=== PATIENT | female | born 1955 | race Caucasian/White ===

== ENCOUNTER 2016-03-19 17:54 | Emergency (ER) | payer OTHER ==
[2016-03-19] MEDS ORDERED: DIPH,PERTUS(ACELL)TETVAC-LF 0.5 ML VIAL IM ONE (18:03)
[2016-03-19 18:05] VITALS: BP 168/83; PULSE 102; RESP 18; TEMP 97.9
--- NOTE | 2016-03-19 18:06 | ED ---
General Adult HPI - General Stated complaint: Fall, head lac Time Seen by Provider: 03/19/16 17:57 Source: RN notes reviewed - History of Present Illness Initial comments: 60 yo female presents to the emergency 5 chief complaint of head injury. The patient states that she was walking. Patient states she has chronic unsteady gait. Patient states she's had this for years she seen her doctor for her. Patient states exactly like her normal unsteady gait she went to stabilize herself she fell forward hit her head and fell backwards. Patient states that she did not have any loss of consciousness. Patient states she has a headache no nausea or vomiting. Patient states that she started to bleed so she thought that she should be evaluated. Patient does not recall her last tetanus. Patient denies any other injury from the incident. Patient denies any recent fever, chills, shortness of breath, chest pain, back pain, abdominal pain, nausea vomiting, numbness or tingling, dysuria or hematuria, constipation or diarrhea, visual changes, or any other current symptoms. - Related Data Home Medications Medication Instructions Recorded Confirmed Mirtazapine [Remeron] 30 mg PO HS 09/29/15 09/29/15 Ranitidine HCl [Zantac] 300 mg PO BID 09/29/15 09/29/15 Sertraline HCl [Zoloft] 200 mg PO W/SUPPER 09/29/15 09/29/15 buPROPion HCL [Wellbutrin XL] 300 mg PO DAILY 09/29/15 09/29/15 busPIRone HCL 15 mg PO BID 09/29/15 09/29/15 Previous Rx's Medication Instructions Recorded Nystatin 100,000 Unit/ml Susp 5 ml PO QID #200 ml 10/01/15 [Mycostatin Oral Susp] sitaGLIPtin [Januvia] 50 mg PO DAILY #30 tab 10/01/15 Allergies Allergy/AdvReac Type Severity Reaction Status Date / Time codeine Allergy Unknown Verified 03/19/16 18:06 erythromycin base Allergy Unknown Verified 03/19/16 18:06 [Erythromycin Base] Review of Systems ROS Statement: Those systems with pertinent positive or pertinent negative responses have been documented in the HPI. ROS Other: All systems not noted in ROS Statement are negative. Past Medical History Past Medical History: Diabetes Mellitus, GERD/Reflux, Osteoarthritis (OA) History of Any Multi-Drug Resistant Organisms: None Reported Additional Past Surgical History / Comment(s): eye surgery Past Anesthesia/Blood Transfusion Reactions: No Reported Reaction Past Psychological History: Depression Smoking Status: Former smoker Past Alcohol Use History: None Reported Past Drug Use History: None Reported General Exam General appearance: alert, in no apparent distress Head exam: Present: other (Patient does appear to have a forehead laceration) Eye exam: Present: normal appearance, PERRL, EOMI. Absent: scleral icterus, conjunctival injection, periorbital swelling Neck exam: Present: normal inspection. Absent: tenderness, meningismus, lymphadenopathy Respiratory exam: Present: normal lung sounds bilaterally. Absent: respiratory distress, wheezes, rales, rhonchi, stridor Cardiovascular Exam: Present: regular rate, normal rhythm, normal heart sounds. Absent: systolic murmur, diastolic murmur, rubs, gallop, clicks Extremities exam: Present: normal inspection, full ROM, normal capillary refill. Absent: tenderness, pedal edema, joint swelling, calf tenderness Back exam: Present: normal inspection Neurological exam: Present: alert, oriented X3, CN II-XII intact. Absent: motor sensory deficit Skin exam: Present: warm, dry, intact, normal color. Absent: rash Course Vital Signs 03/19/16 18:03 Temperature 97.9 F Pulse Rate 102 H Respiratory 18 Rate Blood Pressure 168/83 O2 Sat by Pulse 98 Oximetry Procedures - Procedures Initial comment: The skin was anesthetized with 1% lidocaine. The laceration was then cleansed with Betadine and irrigated with normal saline. The wound was inspected, and there was no evidence of injury to deep structures. No foreign body was noted in the wound. A total of 7 skin sutures were placed utilizing 5-0 nylon to a 4 cm facial laceration. Medical Decision Making - Medical Decision Making 60-year-old female presents to emergency room chief complaint of forehead laceration. This time patient on his computed tomography scan of the head and neck. CT brain was reviewed as well as a C-spine. We did discuss results with the patient. We discussed follow-up for this. We discussed return for illness. Discussed suture Follow-Up. Patient Stated That She Understood All Questions Were Answered. She'll Be Discharged Home. Disposition Clinical Impression: Fall, Forehead laceration, Concussion without loss of consciousness Disposition: HOME SELF-CARE Condition: Stable Instructions: Laceration (ED), Care For Your Stitches (ED), Concussion (ED) Additional Instructions: Please use medication as discussed. Please follow up with family doctor if symptoms have not improved over the next two days. Please return to the emergency room if your symptoms increase or worsen or for any other concerns. Please return to the emergency room in 5 days to have sutures removed. Please leave wound covered for the first 24-48 hours and then leave open to air after that time. Please use clean soap and water to clean the suture area to prevent scabbing over the top of your sutures. Please watch for any signs of infection which may include but not limited to increased pain, swelling, redness, fever or chills. Please return to the emergency room if any signs of infection do occur. Please return to the emergency room for any other concerns or complications. Referrals: Estevan Pierce MD [Primary Care Provider] - 1-2 days Time of Disposition: 18:52
--- NOTE | 2016-03-19 18:49 | CT ---
EXAMINATION TYPE: CT brain yeison diaz con DATE OF EXAM: 03/19/2016 6:27 PM COMPARISON: CT brain fifth of December 2014 HISTORY: Laceration to left side of forehead after fall injury today. CT DLP: 348.9 mGycm Automated exposure control for dose reduction was used. TECHNIQUE: CT scan of the head and cervical spine are performed without contrast. FINDINGS: There is no acute intracranial hemorrhage, mass effect, or midline shift identified. Per iventricular white matter demyelination is stable. There is age-related atrophy. The ventricles and s ulci are within normal limits in size. The globes are intact and the visualized sinuses are clear. Cervical spine is visualized in its entirety from C1 through upper thoracic levels and demonstrates s atisfactory alignment without evidence of acute fracture or dislocation. 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 Prevertebral soft tissue appears within normal limits. The C1-C2 a rticulation is unremarkable. Anterolisthesis grade 1 C2-3, retrolisthesis grade 1 C3-4 where there i s ankylosis. Loss of disc height also present at C4-5, C5-6, C6-7 and C7-T1, extensive sclerosis invo lving C4-5, C5-6. Multilevel foraminal encroachment. Posterior extension of endplate disc complex is causes some anterior mass effect on the thecal sac, mild to moderate central canal stenosis. Lung api jumana are remarkable for some minimal patchy density right upper lobe anteriorly image 83 which is inde terminate. IMPRESSION: 1. There is no acute fracture or dislocation evident in the cervical spine. 2. No acute intracranial hemorrhage, mass effect, or midline shift is seen. 3. Additional findings above.
== END 2016-03-19 19:00 | disposition home or self-care (01) ==
LOC: EC 17:54
DX: S06.0X0A Concussion without loss of consciousness, initial encounter (principal); S01.81XA Laceration without foreign body of other part of head, initial encounter; R26.81 Unsteadiness on feet; W19.XXXA Unspecified fall, initial encounter; Z23 Encounter for immunization; E11.9 Type 2 diabetes mellitus without complications; K21.9 Gastro-esophageal reflux disease without esophagitis; F32.9 Major depressive disorder, single episode, unspecified; Z87.891 Personal history of nicotine dependence; Z79.899 Other long term (current) drug therapy; Z79.84 Long term (current) use of oral hypoglycemic drugs; Z88.5 Allergy status to narcotic agent; Z88.1 Allergy status to other antibiotic agents
CPT/HCPCS: 12013; 70450; 72125; 90471; 90715; 99284

== ENCOUNTER → 2016-04-14 | Outpatient (CLI) | payer OTHER ==
--- NOTE | 2016-04-14 12:54 | XR ---
EXAMINATION TYPE: XR chest 2V DATE OF EXAM: 04/14/2016 12:45 PM COMPARISON: Prior chest x-ray December 11, 2014 HISTORY: Cough for one week. TECHNIQUE: Frontal and lateral views of the chest are obtained. FINDINGS: There is no focal air space opacity, pleural effusion, or pneumothorax seen. The cardiac silhouette size is within normal limits with atherosclerotic thoracic aorta. The osseous structures are intact. Cholecystectomy clips are now present. IMPRESSION: No suspicious acute infiltrate.
--- NOTE | 2016-04-14 12:56 | XR ---
EXAMINATION TYPE: XR knee limited bilateral DATE OF EXAM: 04/14/2016 12:45 PM CLINICAL HISTORY: Bilateral Knee pain and weakness TECHNIQUE: Three views of the bilateral knees are obtained. COMPARISON: Bilateral knee x-ray August 29, 2015 FINDINGS: Osseous structures are somewhat demineralized There is no acute fracture/dislocation eviden t in either there is mild to moderate tricompartment joint space loss redemonstrated. Mild spurring p atellofemoral compartment in left knee is again seen. Chondromalacia patella needs to be considered a s there is cortical irregularity along posterior margin of patellar bilaterally redemonstrated. Vascu lar calcification posterior soft tissue is noted bilaterally. IMPRESSION: There is some demineralization with mild to moderate degenerative changes in both knees redemonstrated. No significant change from prior.
== END | disposition home or self-care (01) ==
LOC: RADXRMAIN 12:18
PROVIDERS: ATTEND Internal Medicine
DX: M25.862 Other specified joint disorders, left knee (principal); M25.861 Other specified joint disorders, right knee; M25.562 Pain in left knee; M25.561 Pain in right knee; G44.83 Primary cough headache
CPT/HCPCS: 71020

== ENCOUNTER → 2016-05-23 | Outpatient (CLI) | payer OTHER ==
--- NOTE | 2016-05-24 00:02 | MR ---
EXAMINATION TYPE: MR knee RT wo con, MR knee LT wo con DATE OF EXAM: 05/23/2016 6:15 PM COMPARISON: Bilateral knee x-ray April 14, 2016. HISTORY: Kory knee pain, no prior surgery TECHNIQUE: Multiplanar, multisequence images of the bilateral knees is performed without IV contrast. FINDINGS: MEDIAL MENISCUS: Anterior horn is intact without tear. There is increased signal posterior horn of me dial meniscus, does not distinctly extend to articular surface, findings are consistent with intrasub stance tear on sagittal images 9 and 10. LATERAL MENISCUS: Anterior and posterior horns are intact without tear. CRUCIATE LIGAMENTS: The anterior and posterior cruciate ligaments are intact and unremarkable. COLLATERAL LIGAMENTS: The medial collateral ligament and lateral collateral ligament complex are inta ct and unremarkable. EXTENSOR MECHANISM: Visualized quadriceps and patellar tendons are intact. EFFUSION: There is a moderate size suprapatellar joint effusion. POPLITEAL CYST: No popliteal/ambriz cyst. TRICOMPARTMENT SPACES: There are moderate tricompartment degenerative changes with joint space loss a nd spurring. CARTILAGE: There is full-thickness cartilaginous defect involving posterior superior patellar pole me dial aspect seen best on axial image 17. BONE MARROW SIGNAL: Some heterogeneous increased T2 signal in the posterior patellar pole is noted at this level. OTHER: No additional significant abnormality is appreciated. IMPRESSION: 1. Intrasubstance tear posterior horn of medial meniscus. 2. Fairly moderate tricompartment degenerative changes with significant full-thickness chondromalacia patella noted. 3. Moderate suprapatellar joint effusion. LEFT KNEE: FINDINGS: MEDIAL MENISCUS: Anterior horn is intact without tear. Oblique increased signal posterior horn of med ial meniscus as seen on sagittal image 22, does not extend to articular surface. LATERAL MENISCUS: Anterior and posterior horns are intact without tear. CRUCIATE LIGAMENTS: The anterior and posterior cruciate ligaments are intact and unremarkable. COLLATERAL LIGAMENTS: The medial collateral ligament and lateral collateral ligament complex are inta ct and unremarkable. EXTENSOR MECHANISM: Visualized quadriceps and patellar tendons are intact. EFFUSION: There are small to moderate-sized suprapatellar joint effusion. POPLITEAL CYST: There is small popliteal/ambriz cyst seen best on sagittal image 20. TRICOMPARTMENT SPACES: There is mild to moderate tricompartment joint space loss and spurring. CARTILAGE: There is full-thickness cartilaginous loss over the posterior superior patellar pole near axial image 18. BONE MARROW SIGNAL: Heterogeneous increased T2 signal seen involving superior patellar pole. OTHER: No additional significant abnormality is appreciated. IMPRESSION: 1. Intrasubstance tear posterior horn of medial meniscus similar to opposite right knee. 2. Moderate tricompartment degenerative changes with significant full-thickness chondromalacia patell a is noted superiorly, latter is slightly less prominent versus opposite right knee. 3. Small to moderate size suprapatellar joint effusion. 4. Small popliteal/ambriz cyst.
== END | disposition home or self-care (01) ==
LOC: RADMRIMAIN 16:13
PROVIDERS: ATTEND Orthopaedic Surgery
DX: S83.231A Complex tear of medial meniscus, current injury, right knee, initial encounter (principal); S83.232A Complex tear of medial meniscus, current injury, left knee, initial encounter; X58.XXXA Exposure to other specified factors, initial encounter; M22.42 Chondromalacia patellae, left knee; M22.41 Chondromalacia patellae, right knee; M71.22 Synovial cyst of popliteal space [Baker], left knee; M17.0 Bilateral primary osteoarthritis of knee

== ENCOUNTER 2016-06-07 06:16 | Emergency (ER) | payer OTHER ==
[2016-06-07 06:53] VITALS: TEMP 97.6
[2016-06-07] MEDS ORDERED: PANTOPRAZOLE 40 MG/10 ML VIAL IVP STA (07:12)
[2016-06-07] MEDS ORDERED: DICYCLOMINE 10 MG/ML 2 ML AMP IM STA (07:12)
[2016-06-07] MEDS ORDERED: MAG HYDROX/AL HYDROX/SIMETH 30 ML CUP PO PRN (07:14)
[2016-06-07 07:52] LABS: Basophils % (A) 0 %; CH 27.8; CHCM 31.7; Eosinophils % (A) 1 %; HCT 37.9 % (34.0-46.0); HDW 2.92; HGB 12.3 gm/dL (11.4-16.0); Hypochromasia Slight; Luc # (Auto) 0.14; Luc % (Auto) 2; Lymphocytes % (A) 13 %; MCH 28.4 pg (25.0-35.0); MCHC 32.4 g/dL (31.0-37.0); MCV 87.9 fL (80.0-100.0); Mean Platelet Volume 6.8; Monocytes # (A) 0.3 k/uL (0-1.0); Monocytes % (A) 4 %; Neutrophils # (A) 6.2 k/uL (1.3-7.7); Neutrophils % (A) 81 %; RBC 4.31 m/uL (3.80-5.40); RDW 15.4 % (11.5-15.5); WBC 7.7 k/uL (3.8-10.6); WBC (Perox) 7.62
[2016-06-07 07:54] LABS: ALT 18 U/L (9-52); AST 17 U/L (14-36); Alkaline Phosphatase 90 U/L (38-126); Amylase 48 U/L (30-110); Anion Gap 13 mmol/L; Blood Urea Nitrogen 34 mg/dL (7-17); Calcium 10.4 mg/dL (8.4-10.2); Carbon Dioxide 21 mmol/L (22-30); Chloride 106 mmol/L (98-107); Glucose 284 mg/dL (74-99); Non-African American GFR(MDRD) >60 (>60 ml/min/1.73 sqM); Potassium 4.6 mmol/L (3.5-5.1); Sodium 140 mmol/L (137-145); Total Bilirubin 0.4 mg/dL (0.2-1.3)
--- NOTE | 2016-06-07 08:04 | XR ---
EXAMINATION TYPE: XR KUB DATE OF EXAM ORDERED: 06/07/2016 7:54 AM HISTORY: abdominal pain. COMPARISON: Previous study dated 09/29/2015. FINDINGS: There are mildly dilated loops of large and small bowel throughout the abdomen. There are scattered air-fluid levels. There is no evidence of free air. No unusual calcifications are seen. The re is evidence of a previous cholecystectomy. IMPRESSION: FINDINGS MOST CONSISTENT WITH EARLY ILEUS.
[2016-06-07] MEDS ORDERED: SODIUM CHLORIDE 0.9% 500 ML IV STA (08:22)
[2016-06-07 08:31] VITALS: RESP 16
[2016-06-07 08:32] LABS: Amorphous Sediment,Urine Few /hpf; Appearance,Urine Turbid (Clear); Bacteria,Urine Many /hpf; Bilirubin,Urine Negative (Negative); Glucose,Urine (UA) 4+ (Negative); Ketones,Urine Negative (Negative); Leukocyte Esterase,Urine Large (Negative); Nitrite,Urine Negative (Negative); Particle Count 92647; Protein,Urine Trace (Negative); RBC,Urine 66 /hpf (0-5); Specific Gravity,Urine 1.008 (1.001-1.035); Squamous Epithelial Cell,Urine 1 /hpf (0-4); UA Billing (MACRO vs. MICRO) MICRO; Urobilinogen,Urine <2.0 mg/dL (<2.0); WBC,Urine 30 /hpf (0-5)
[2016-06-07] MEDS ORDERED: SODIUM CHLORIDE 0.9% 1,000 ML IV STA (09:12)
--- NOTE | 2016-06-07 09:56 | ED ---
General Adult HPI - General Chief complaint: Abdominal Pain Stated complaint: abd pain, reflux Time Seen by Provider: 06/07/16 07:12 Source: patient Mode of arrival: ambulatory Limitations: no limitations - History of Present Illness Initial comments: Patient complains of acid reflux. She states that she has all the time. Sometimes it gets better and sometimes he gets worse. Today, she feels like it is worse. She has no complaint of chest or back pain. She has no nausea or vomiting. She has no weakness. She has no lightheadedness or dizziness. She has no neck pain or stiffness. She was beginning to experience worsening of her acid reflux last night. It has stayed about the same since then. She denies any palpitations. She has no swelling the legs. She has no headache. - Related Data Home Medications Medication Instructions Recorded Confirmed Mirtazapine [Remeron] 30 mg PO HS 09/29/15 03/19/16 Ranitidine HCl [Zantac] 300 mg PO BID 09/29/15 03/19/16 Sertraline HCl [Zoloft] 200 mg PO W/SUPPER 09/29/15 03/19/16 buPROPion HCL [Wellbutrin XL] 300 mg PO DAILY 09/29/15 03/19/16 busPIRone HCL 15 mg PO BID 09/29/15 03/19/16 Previous Rx's Medication Instructions Recorded Nystatin 100,000 Unit/ml Susp 5 ml PO QID #200 ml 10/01/15 [Mycostatin Oral Susp] sitaGLIPtin [Januvia] 50 mg PO DAILY #30 tab 10/01/15 Nitrofurantoin Monohyd/M-Cryst 100 mg PO Q12HR #14 cap 06/07/16 [Macrobid] Allergies Allergy/AdvReac Type Severity Reaction Status Date / Time codeine Allergy Unknown Verified 06/07/16 06:33 erythromycin base Allergy Unknown Verified 06/07/16 06:33 [Erythromycin Base] Review of Systems ROS Statement: Those systems with pertinent positive or pertinent negative responses have been documented in the HPI. ROS Other: All systems not noted in ROS Statement are negative. Past Medical History Past Medical History: Diabetes Mellitus, GERD/Reflux, Osteoarthritis (OA) History of Any Multi-Drug Resistant Organisms: None Reported Additional Past Surgical History / Comment(s): eye surgery Past Anesthesia/Blood Transfusion Reactions: No Reported Reaction Past Psychological History: Depression Smoking Status: Former smoker Past Alcohol Use History: None Reported, Rare Past Drug Use History: None Reported General Exam Limitations: no limitations General appearance: alert, in no apparent distress Head exam: Present: atraumatic, normocephalic, normal inspection Eye exam: Present: normal appearance, PERRL, EOMI. Absent: scleral icterus, conjunctival injection, periorbital swelling ENT exam: Present: normal exam, mucous membranes moist Neck exam: Present: normal inspection. Absent: tenderness, meningismus, lymphadenopathy Respiratory exam: Present: normal lung sounds bilaterally. Absent: respiratory distress, wheezes, rales, rhonchi, stridor Cardiovascular Exam: Present: regular rate, normal rhythm, normal heart sounds. Absent: systolic murmur, diastolic murmur, rubs, gallop, clicks GI/Abdominal exam: Present: soft, normal bowel sounds. Absent: distended, tenderness, guarding, rebound, rigid Extremities exam: Present: normal inspection, full ROM, normal capillary refill. Absent: tenderness, pedal edema, joint swelling, calf tenderness Back exam: Present: normal inspection Neurological exam: Present: alert, oriented X3, CN II-XII intact Psychiatric exam: Present: normal affect, normal mood Skin exam: Present: warm, dry, intact, normal color. Absent: rash Course Vital Signs 06/07/16 06/07/16 06/07/16 06:27 07:51 08:30 Temperature 97.6 F Pulse Rate 110 H 110 H 120 H Respiratory 16 18 16 Rate Blood Pressure 132/78 148/80 137/67 O2 Sat by Pulse 97 98 99 Oximetry EKG Findings - EKG Comments: EKG Findings:: Twelve-lead EKG is obtained, interpreted by me showing ventricular rate 117 bpm, normal SD interval and Johnny complexes, no ST elevation or depression, interpreted by me as sinus tachycardia. Medical Decision Making - Medical Decision Making Patient complains of acid reflux. She is given a GI cocktail. Her laboratory studies show a slightly elevated B-1, consistent with dehydration. However, her creatinine is acceptable. Her troponin is negative. Her imaging does not reveal any evidence of an acute emergency condition. Patient is tolerating oral intake at this time. I'm reevaluation her vital signs are sniffily improved after IV fluids. I do give her 1 dose of IV ceftriaxone for a kidney infection. I'm reevaluation she is filling much better and her symptoms have generally resolved. I do feel that given the improvement in her vital signs she is not symptomatically this time that she is stable for discharge and outpatient follow-up. She should follow-up with her doctor within 2 days, return to the ER immediately if her symptoms return, worsen, or if she develops any other problems or complaints. - Lab Data Result diagrams: 06/07/16 07:25 06/07/16 07:25 Lab Results 06/07/16 06/07/16 06/07/16 Range/Units 07:25 07:25 07:25 WBC 7.7 (3.8-10.6) k/uL RBC 4.31 (3.80-5.40) m/uL Hgb 12.3 (11.4-16.0) gm/dL Hct 37.9 (34.0-46.0) % MCV 87.9 (80.0-100.0) fL MCH 28.4 (25.0-35.0) pg MCHC 32.4 (31.0-37.0) g/dL RDW 15.4 (11.5-15.5) % Plt Count 192 (150-450) k/uL Neutrophils % 81 % Lymphocytes % 13 % Monocytes % 4 % Eosinophils % 1 % Basophils % 0 % Neutrophils # 6.2 (1.3-7.7) k/uL Lymphocytes # 1.0 (1.0-4.8) k/uL Monocytes # 0.3 (0-1.0) k/uL Eosinophils # 0.0 (0-0.7) k/uL Basophils # 0.0 (0-0.2) k/uL Hypochromasia Slight Sodium 140 (137-145) mmol/L Potassium 4.6 (3.5-5.1) mmol/L Chloride 106 (98-107) mmol/L Carbon Dioxide 21 L (22-30) mmol/L Anion Gap 13 mmol/L BUN 34 H (7-17) mg/dL Creatinine 0.90 (0.52-1.04) mg/dL Est GFR (MDRD) Af Amer >60 (>60 ml/min/1.73 sqM) Est GFR (MDRD) Non-Af >60 (>60 ml/min/1.73 sqM) Glucose 284 H (74-99) mg/dL Calcium 10.4 H (8.4-10.2) mg/dL Total Bilirubin 0.4 (0.2-1.3) mg/dL AST 17 (14-36) U/L ALT 18 (9-52) U/L Alkaline Phosphatase 90 (38-126) U/L Troponin I <0.012 (0.000-0.034) ng/mL Total Protein 7.0 (6.3-8.2) g/dL Albumin 3.8 (3.5-5.0) g/dL Amylase 48 (30-110) U/L Lipase 97 (23-300) U/L Urine Color Urine Appearance (Clear) Urine pH (5.0-8.0) Ur Specific [place] (1.001-1.035) Urine Protein (Negative) Urine Glucose (UA) (Negative) Urine Ketones (Negative) Urine Blood (Negative) Urine Nitrite (Negative) Urine Bilirubin (Negative) Urine Urobilinogen (<2.0) mg/dL Ur Leukocyte Esterase (Negative) Urine RBC (0-5) /hpf Urine WBC (0-5) /hpf Ur Squamous Epith Cells (0-4) /hpf Amorphous Sediment (None) /hpf Urine Bacteria (None) /hpf 06/07/16 Range/Units 07:35 WBC (3.8-10.6) k/uL RBC (3.80-5.40) m/uL Hgb (11.4-16.0) gm/dL Hct (34.0-46.0) % MCV (80.0-100.0) fL MCH (25.0-35.0) pg MCHC (31.0-37.0) g/dL RDW (11.5-15.5) % Plt Count (150-450) k/uL Neutrophils % % Lymphocytes % % Monocytes % % Eosinophils % % Basophils % % Neutrophils # (1.3-7.7) k/uL Lymphocytes # (1.0-4.8) k/uL Monocytes # (0-1.0) k/uL Eosinophils # (0-0.7) k/uL Basophils # (0-0.2) k/uL Hypochromasia Sodium (137-145) mmol/L Potassium (3.5-5.1) mmol/L Chloride (98-107) mmol/L Carbon Dioxide (22-30) mmol/L Anion Gap mmol/L BUN (7-17) mg/dL Creatinine (0.52-1.04) mg/dL Est GFR (MDRD) Af Amer (>60 ml/min/1.73 sqM) Est GFR (MDRD) Non-Af (>60 ml/min/1.73 sqM) Glucose (74-99) mg/dL Calcium (8.4-10.2) mg/dL Total Bilirubin (0.2-1.3) mg/dL AST (14-36) U/L ALT (9-52) U/L Alkaline Phosphatase (38-126) U/L Troponin I (0.000-0.034) ng/mL Total Protein (6.3-8.2) g/dL Albumin (3.5-5.0) g/dL Amylase (30-110) U/L Lipase (23-300) U/L Urine Color Yellow Urine Appearance Turbid H (Clear) Urine pH 7.0 (5.0-8.0) Ur Specific [place] 1.008 (1.001-1.035) Urine Protein Trace H (Negative) Urine Glucose (UA) 4+ H (Negative) Urine Ketones Negative (Negative) Urine Blood Small H (Negative) Urine Nitrite Negative (Negative) Urine Bilirubin Negative (Negative) Urine Urobilinogen <2.0 (<2.0) mg/dL Ur Leukocyte Esterase Large H (Negative) Urine RBC 66 H (0-5) /hpf Urine WBC 30 H (0-5) /hpf Ur Squamous Epith Cells 1 (0-4) /hpf Amorphous Sediment Few H (None) /hpf Urine Bacteria Many H (None) /hpf Disposition Clinical Impression: Kidney infection Disposition: HOME SELF-CARE Condition: Good Instructions: Kidney Infection (ED) Prescriptions: Nitrofurantoin Monohyd/M-Cryst [Macrobid] 100 mg PO Q12HR #14 cap Time of Disposition: 09:56
[2016-06-07 10:16] VITALS: BP 153/78; PULSE 104
== END 2016-06-07 10:14 | disposition home or self-care (01) ==
LOC: EC 06:16
DX: N15.9 Renal tubulo-interstitial disease, unspecified (principal); F32.9 Major depressive disorder, single episode, unspecified; K21.9 Gastro-esophageal reflux disease without esophagitis; E11.9 Type 2 diabetes mellitus without complications; Z88.5 Allergy status to narcotic agent; Z88.1 Allergy status to other antibiotic agents; Z79.84 Long term (current) use of oral hypoglycemic drugs; Z87.891 Personal history of nicotine dependence; Z79.899 Other long term (current) drug therapy
CPT/HCPCS: 99284; 96365; 96375; 96361; 96372; 36415; 93005; 80053; 82150; 83690; 84484; 85025; 81001; 74000; J0500; J0696; C9113

== ENCOUNTER 2016-10-11 17:45 | Emergency (ER) | payer OTHER ==
[2016-10-11 17:50] VITALS: RESP 18
--- NOTE | 2016-10-11 18:57 | ED ---
General Adult HPI - General Chief complaint: Extremity Injury, Lower Stated complaint: Fall Time Seen by Provider: 10/11/16 17:53 Source: patient, RN notes reviewed, old records reviewed Mode of arrival: EMS Limitations: physical limitation - History of Present Illness Initial comments: Chief complaint history of present illness is a 60-year-old female who reports she stumbled several times but her left knee gives out and she landed on her knees. Complains of discomfort and bruising to her knees. Denies any other injuries to the rest of her body. - Related Data Home Medications Medication Instructions Recorded Confirmed DULoxetine HCL [Cymbalta] 60 mg PO DAILY 10/11/16 10/11/16 Ergocalciferol [Vitamin D2] 50,000 unit PO Q7D 10/11/16 10/11/16 Fenofibrate Nanocrystallized 145 mg PO DAILY 10/11/16 10/11/16 [Fenofibrate] Magnesium Oxide 400 mg PO DAILY 10/11/16 10/11/16 OLANZapine [ZyPREXA] 10 mg PO DIRECTED 10/11/16 10/11/16 Ranitidine HCl [Zantac] 150 mg PO DAILY 10/11/16 10/11/16 busPIRone HCL [Buspar] 30 mg PO BID 10/11/16 10/11/16 glipiZIDE [Glucotrol] 10 mg PO BID 10/11/16 10/11/16 metFORMIN HCL [Glucophage] 500 mg PO BID 10/11/16 10/11/16 Previous Rx's Medication Instructions Recorded Nystatin 100,000 Unit/gm Powd 1 applic TOPICAL TID #60 gm 10/11/16 [Mycostatin Powder] Allergies Allergy/AdvReac Type Severity Reaction Status Date / Time codeine Allergy Unknown Verified 10/11/16 18:40 erythromycin base Allergy Unknown Verified 10/11/16 18:40 [Erythromycin Base] Review of Systems ROS Statement: Those systems with pertinent positive or pertinent negative responses have been documented in the HPI. Review of systems no headache no chest pain or shortness of breath no GI/ problems or complaints. All systems are reviewed. Only complains of discomfort to her knees where she fell on her knees twice. Past medical problems significant for non-insulin diabetes mellitus, GERD and osteoarthritis. She had a gallbladder removal and eye surgery. Family history no cancers. She has ALLERGIES to codeine and erythromycin base. She quit smoking over 40 years ago denies alcohol use. ROS Other: All systems not noted in ROS Statement are negative. Past Medical History Past Medical History: Diabetes Mellitus, GERD/Reflux, Osteoarthritis (OA) History of Any Multi-Drug Resistant Organisms: None Reported Additional Past Surgical History / Comment(s): eye surgery Past Anesthesia/Blood Transfusion Reactions: No Reported Reaction Past Psychological History: Depression Smoking Status: Former smoker Past Alcohol Use History: None Reported, Rare Past Drug Use History: None Reported General Exam - General Exam Comments Initial Comments: General: The patient is awake and alert, age left knee goes out on her sometimes making her fall to her knees. She is waiting to get a cane through [facility]. Vital signs are temperature 98.6 pulse 96 respiratory rate 18 pulse ox 98% room air blood pressure 140/69 Eye: Pupils are equal, round and reactive to light, extra-ocular movements are intact ; there is normal conjunctiva bilaterally. No signs of icterus. Ears, nose, mouth and throat: There are moist mucous membranes and no oral lesions. Neck: The neck is supple, there is no tenderness . Cardiovascular: There is a regular rate and rhythm. No murmur, rub or gallop is appreciated. Respiratory: Lungs are clear to auscultation, respirations are non-labored, breath sounds are equal. No wheezes, stridor, rales, or rhonchi. Gastrointestinal: Abdomen, nontender, no organomegaly. Active bowel sounds. She does have a significant intertrigo on the right half of her pannus. This be treated with Mycostatin. Back: No back pain.. Musculoskeletal: Bruising to her knees. On examination the left leg is slightly shorter than the right but is no pain with varus valgus or drawer testing of the knees. No pain with manipulation of the hips ankles or feet. Neurovascular status appears to be intact. Neurological: No focal or lateralizing findings on examination. Intertrigo noted on the right half of the pannus. Limitations: physical limitation Course Vital Signs 10/11/16 17:47 Temperature 97.3 F L Pulse Rate 101 H Respiratory 18 Rate Blood Pressure 143/66 O2 Sat by Pulse 97 Oximetry Medical Decision Making - Medical Decision Making Vital decision making; X-rays of the pelvis done and reviewed by me. No evidence of any acute irregularity. Awaiting radiologist's final impression. X-ray of the pelvis was reviewed by radiologist his final impression is no acute fracture dislocation in the pelvis. As read by Dr. rodriguez Tray both left and right knee were done and reviewed by me. No evidence of any acute bony irregularity. Joint spaces appear to be well maintained. No evidence of any effusion. No fractures appreciated. Mild arthritic changes noted. Awaiting radiologist's final impression. Tray of both knees were done and reviewed by radiologist his final impression is there is no acute fracture dislocation in either knee. As read by Dr. rodriguez he does also mention the subchondral cystic changes to the posterior patellar level bilaterally is consistent with significant chondromalacia patella on recent MRI studies. The patient reports that her left knee gives out which makes her have difficulty walking. She is waiting for a cane to be initiated to her. She declines a prescription for a walker. Patient has intertrigo to her right half of her pannus. She'll be placed on Mycostatin advised to follow-up with family physician. Disposition Clinical Impression: Contusion of knee, left, Contusion of knee, right, Candidiasis, intertrigo Disposition: HOME SELF-CARE Condition: Fair Instructions: Knee Pain (ED), Skin Yeast Infection (ED) Additional Instructions: Use a walking cane as needed. Use a cane for stability. Use Mycostatin as directed. Follow up with your family physician Prescriptions: Nystatin 100,000 Unit/gm Powd [Mycostatin Powder] 1 applic TOPICAL TID #60 gm Referrals: Ashlyn Arriaza MD [Primary Care Provider] - 1-2 days Time of Disposition: 19:30
--- NOTE | 2016-10-11 19:14 | XR ---
EXAMINATION TYPE: XR pelvis AP view DATE OF EXAM: 10/11/2016 CLINICAL HISTORY: Pain after fall injury TECHNIQUE: A single AP view of the pelvis is obtained. COMPARISON: None. FINDINGS: There is no acute fracture/dislocation evident in the pelvis. The sacroiliac joints appea r symmetric and unremarkable. There is mild to moderate axial joint space loss in both hips. Surgical clips overlie the left lower quadrant near midline. There is transitional-type vertebra at lumbosacr al junction sacralized on the left. IMPRESSION: There is no acute fracture or dislocation in the pelvis.
--- NOTE | 2016-10-11 19:16 | XR ---
EXAMINATION TYPE: XR knee 4V bilateral DATE OF EXAM: 10/11/2016 CLINICAL HISTORY: Pain after fall injury. TECHNIQUE: Three views of the bilateral knees are obtained. In addition fourth sunrise view was perf ormed. COMPARISON: Bilateral knee x-ray April 14, 2016. FINDINGS: There is no acute fracture/dislocation evident in either knee. There is spurring and joint space loss patellofemoral compartment bilateral knees redemonstrated. Patellar articulation is withi n normal limits on sunrise view bilaterally. Subchondral cystic change posterior patellar level bilat erally is consistent with significant chondromalacia patella on recent MRI studies. The overlying sof t tissue appears unremarkable. IMPRESSION: There is no acute fracture or dislocation in either knee.
[2016-10-11 19:43] VITALS: BP 153/64; PULSE 69; TEMP 98.2
== END 2016-10-11 19:42 | disposition home or self-care (01) ==
LOC: EC 17:45
DX: S80.02XA Contusion of left knee, initial encounter (principal); S80.01XA Contusion of right knee, initial encounter; B37.2 Candidiasis of skin and nail; E11.9 Type 2 diabetes mellitus without complications; K21.9 Gastro-esophageal reflux disease without esophagitis; M19.90 Unspecified osteoarthritis, unspecified site; F32.9 Major depressive disorder, single episode, unspecified; Z88.1 Allergy status to other antibiotic agents; Z88.5 Allergy status to narcotic agent; Z79.84 Long term (current) use of oral hypoglycemic drugs; Z79.899 Other long term (current) drug therapy; Z87.891 Personal history of nicotine dependence; W19.XXXA Unspecified fall, initial encounter
CPT/HCPCS: 72170; 99284

== ENCOUNTER 2016-10-26 12:18 | Emergency (ER) | payer OTHER ==
[2016-10-26 12:24] VITALS: RESP 18
[2016-10-26] MEDS ORDERED: SODIUM CHLORIDE 0.9% 500 ML IV STA (12:48)
--- NOTE | 2016-10-26 12:51 | ED ---
General Adult HPI - General Chief complaint: Weakness Stated complaint: Weakness Time Seen by Provider: 10/26/16 12:20 Source: patient, EMS, RN notes reviewed Mode of arrival: EMS Limitations: no limitations - History of Present Illness Initial comments: This is a 60-year-old female presents emergency department stating that she came in because she feels weak all over. Patient states earlier today she felt weak and slowly fell to the ground she did not injure anything and has no pain. Patient denies any other symptoms. Patient states she has no headache she has no numbness or focal weakness. Patient has no headache patient has no lightheadedness or dizziness. Patient denies any chest pain or palpitations. Patient denies any shortness of breath or difficulty breathing. Patient denies any fever or cough. Patient denies abdominal pain patient denies nausea vomiting diarrhea. Patient denies any dysuria hematuria urinary frequency. Patient's only complaint is she just feels weak all over - Related Data Home Medications Medication Instructions Recorded Confirmed DULoxetine HCL [Cymbalta] 60 mg PO DAILY 10/11/16 10/26/16 Ergocalciferol [Vitamin D2] 50,000 unit PO MO 10/11/16 10/26/16 Fenofibrate Nanocrystallized 145 mg PO DAILY 10/11/16 10/26/16 [Fenofibrate] Magnesium Oxide 400 mg PO DAILY 10/11/16 10/26/16 OLANZapine [ZyPREXA] 10 mg PO HS 10/11/16 10/26/16 Ranitidine HCl [Zantac] 150 mg PO DAILY 10/11/16 10/26/16 busPIRone HCL [Buspar] 30 mg PO DAILY 10/11/16 10/26/16 glipiZIDE [Glucotrol] 10 mg PO BID 10/11/16 10/26/16 metFORMIN HCL [Glucophage] 500 mg PO BID 10/11/16 10/26/16 Ammonium Lactate Cream [Lac-Hydrin 1 applic TOPICAL BID 10/26/16 10/26/16 12% Cream] Triamcinolone 0.5% Cream [Kenalog 1 applic TOPICAL BID 10/26/16 10/26/16 0.5% Cream] Previous Rx's Medication Instructions Recorded Levofloxacin [Levaquin] 750 mg PO DAILY #10 tab 10/26/16 Allergies Allergy/AdvReac Type Severity Reaction Status Date / Time codeine Allergy Unknown Verified 10/26/16 12:56 erythromycin base Allergy Unknown Verified 10/26/16 12:56 [Erythromycin Base] Review of Systems ROS Statement: Those systems with pertinent positive or pertinent negative responses have been documented in the HPI. ROS Other: All systems not noted in ROS Statement are negative. Past Medical History Past Medical History: Diabetes Mellitus, GERD/Reflux, Osteoarthritis (OA) History of Any Multi-Drug Resistant Organisms: None Reported Additional Past Surgical History / Comment(s): eye surgery Past Anesthesia/Blood Transfusion Reactions: No Reported Reaction Past Psychological History: Depression Smoking Status: Former smoker Past Alcohol Use History: None Reported, Rare Past Drug Use History: None Reported General Exam - General Exam Comments Initial Comments: GENERAL: Patient is well-developed and well-nourished. Patient is nontoxic and well- hydrated and is in no acute distress. ENT: Neck is soft and supple. No significant lymphadenopathy is noted. Oropharynx is clear. Moist mucous membranes. Neck has full range of motion without eliciting any pain. EYES: The sclera were anicteric and conjunctiva were pink and moist. Extraocular movements were intact and pupils were equal round and reactive to light. Eyelids were unremarkable. PULMONARY: Unlabored respirations. Good breath sounds bilaterally. No audible rales rhonchi or wheezing was noted. CARDIOVASCULAR: There is a regular rate and rhythm without any murmurs gallops or rubs. ABDOMEN: Soft and nontender with normal bowel sounds. No palpable organomegaly was noted. There is no palpable pulsatile mass. SKIN: Skin is clear with no lesions or rashes and otherwise unremarkable. NEUROLOGIC: Patient is alert and oriented x3. Cranial nerves II through XII are grossly intact. Motor and sensory are also intact. Normal speech, volume and content. Symmetrical smile. MUSCULOSKELETAL: Normal extremities with adequate strength and full range of motion. No lower extremity swelling or edema. No calf tenderness. LYMPHATICS: No significant lymphadenopathy is noted PSYCHIATRIC: Normal psychiatric evaluation. Normal interpersonal interactions appears functionally intact in deals appropriately with others. No signs of depression. No signs of anxiety. Limitations: no limitations Course Vital Signs 10/26/16 12:21 Temperature 97.9 F Pulse Rate 113 H Respiratory 18 Rate Blood Pressure 124/75 O2 Sat by Pulse 96 Oximetry Medical Decision Making - Medical Decision Making EKG shows sinus tachycardia at 113 bpm LA interval is 154 QRS is 60 QT interval 324 QTC is 444. Patient's EKG shows no ST segment elevation or depression or T wave abnormalities are noted. Patient has urinary tract infection I gave the patient 2 g of Rocephin - Lab Data Result diagrams: 10/26/16 12:24 10/26/16 12:24 Lab Results 10/26/16 10/26/16 10/26/16 Range/Units 12:24 12:24 12:24 WBC 8.7 (3.8-10.6) k/uL RBC 4.15 (3.80-5.40) m/uL Hgb 12.2 (11.4-16.0) gm/dL Hct 37.1 (34.0-46.0) % MCV 89.4 (80.0-100.0) fL MCH 29.4 (25.0-35.0) pg MCHC 32.9 (31.0-37.0) g/dL RDW 14.9 (11.5-15.5) % Plt Count 167 (150-450) k/uL Neutrophils % 83 % Lymphocytes % 12 % Monocytes % 4 % Eosinophils % 1 % Basophils % 0 % Neutrophils # 7.2 (1.3-7.7) k/uL Lymphocytes # 1.0 (1.0-4.8) k/uL Monocytes # 0.3 (0-1.0) k/uL Eosinophils # 0.0 (0-0.7) k/uL Basophils # 0.0 (0-0.2) k/uL PT (9.0-12.0) sec INR (<1.2) APTT (22.0-30.0) sec Sodium 137 (137-145) mmol/L Potassium 4.5 (3.5-5.1) mmol/L Chloride 108 H (98-107) mmol/L Carbon Dioxide 18 L (22-30) mmol/L Anion Gap 11 mmol/L BUN 27 H (7-17) mg/dL Creatinine 1.02 (0.52-1.04) mg/dL Est GFR (MDRD) Af Amer >60 (>60 ml/min/1.73 sqM) Est GFR (MDRD) Non-Af 55 (>60 ml/min/1.73 sqM) Glucose 252 H (74-99) mg/dL Calcium 10.1 (8.4-10.2) mg/dL Magnesium 1.8 (1.6-2.3) mg/dL Total Bilirubin 0.3 (0.2-1.3) mg/dL AST 15 (14-36) U/L ALT 27 (9-52) U/L Alkaline Phosphatase 95 (38-126) U/L Total Creatine Kinase 48 (30-135) U/L CK-MB (CK-2) 1.3 (0.0-2.4) ng/mL CK-MB (CK-2) Rel Index 2.7 Troponin I <0.012 (0.000-0.034) ng/mL Total Protein 6.7 (6.3-8.2) g/dL Albumin 3.7 (3.5-5.0) g/dL Urine Color Urine Appearance (Clear) Urine pH (5.0-8.0) Ur Specific [place] (1.001-1.035) Urine Protein (Negative) Urine Glucose (UA) (Negative) Urine Ketones (Negative) Urine Blood (Negative) Urine Nitrite (Negative) Urine Bilirubin (Negative) Urine Urobilinogen (<2.0) mg/dL Ur Leukocyte Esterase (Negative) Urine RBC (0-5) /hpf Urine WBC (0-5) /hpf Urine WBC Clumps (None) /hpf 10/26/16 10/26/16 Range/Units 12:24 14:05 WBC (3.8-10.6) k/uL RBC (3.80-5.40) m/uL Hgb (11.4-16.0) gm/dL Hct (34.0-46.0) % MCV (80.0-100.0) fL MCH (25.0-35.0) pg MCHC (31.0-37.0) g/dL RDW (11.5-15.5) % Plt Count (150-450) k/uL Neutrophils % % Lymphocytes % % Monocytes % % Eosinophils % % Basophils % % Neutrophils # (1.3-7.7) k/uL Lymphocytes # (1.0-4.8) k/uL Monocytes # (0-1.0) k/uL Eosinophils # (0-0.7) k/uL Basophils # (0-0.2) k/uL PT 10.3 (9.0-12.0) sec INR 1.0 (<1.2) APTT 20.8 L (22.0-30.0) sec Sodium (137-145) mmol/L Potassium (3.5-5.1) mmol/L Chloride (98-107) mmol/L Carbon Dioxide (22-30) mmol/L Anion Gap mmol/L BUN (7-17) mg/dL Creatinine (0.52-1.04) mg/dL Est GFR (MDRD) Af Amer (>60 ml/min/1.73 sqM) Est GFR (MDRD) Non-Af (>60 ml/min/1.73 sqM) Glucose (74-99) mg/dL Calcium (8.4-10.2) mg/dL Magnesium (1.6-2.3) mg/dL Total Bilirubin (0.2-1.3) mg/dL AST (14-36) U/L ALT (9-52) U/L Alkaline Phosphatase (38-126) U/L Total Creatine Kinase (30-135) U/L CK-MB (CK-2) (0.0-2.4) ng/mL CK-MB (CK-2) Rel Index Troponin I (0.000-0.034) ng/mL Total Protein (6.3-8.2) g/dL Albumin (3.5-5.0) g/dL Urine Color Light Yellow Urine Appearance Cloudy H (Clear) Urine pH 5.5 (5.0-8.0) Ur Specific [place] 1.004 (1.001-1.035) Urine Protein Trace H (Negative) Urine Glucose (UA) 3+ H (Negative) Urine Ketones Negative (Negative) Urine Blood Trace H (Negative) Urine Nitrite Negative (Negative) Urine Bilirubin Negative (Negative) Urine Urobilinogen <2.0 (<2.0) mg/dL Ur Leukocyte Esterase Large H (Negative) Urine RBC 4 (0-5) /hpf Urine WBC >182 H (0-5) /hpf Urine WBC Clumps Many H (None) /hpf Disposition Clinical Impression: Urinary tract infection Disposition: HOME SELF-CARE Condition: Good Instructions: Urinary Tract Infection in Women (ED) Prescriptions: Levofloxacin [Levaquin] 750 mg PO DAILY #10 tab Referrals: Ashlyn Arriaza MD [Primary Care Provider] - 1-2 days Time of Disposition: 14:47
[2016-10-26 13:08] LABS: Basophils % (A) 0 %; CHCM 32.6; Eosinophils % (A) 1 %; HCT 37.1 % (34.0-46.0); HDW 2.53; HGB 12.2 gm/dL (11.4-16.0); Luc # (Auto) 0.09; Luc % (Auto) 1; Lymphocytes % (A) 12 %; MCH 29.4 pg (25.0-35.0); MCHC 32.9 g/dL (31.0-37.0); MCV 89.4 fL (80.0-100.0); Mean Platelet Volume 7.8; Monocytes # (A) 0.3 k/uL (0-1.0); Monocytes % (A) 4 %; Neutrophils # (A) 7.2 k/uL (1.3-7.7); Neutrophils % (A) 83 %; RBC 4.15 m/uL (3.80-5.40); RDW 14.9 % (11.5-15.5); WBC 8.7 k/uL (3.8-10.6); WBC (Perox) 8.93
[2016-10-26 13:15] LABS: ALT 27 U/L (9-52); AST 15 U/L (14-36); Alkaline Phosphatase 95 U/L (38-126); Anion Gap 11 mmol/L; Blood Urea Nitrogen 27 mg/dL (7-17); Calcium 10.1 mg/dL (8.4-10.2); Carbon Dioxide 18 mmol/L (22-30); Chloride 108 mmol/L (98-107); Glucose 252 mg/dL (74-99); Magnesium 1.8 mg/dL (1.6-2.3); Non-African American GFR(MDRD) 55 (>60 ml/min/1.73 sqM); Potassium 4.5 mmol/L (3.5-5.1); Sodium 137 mmol/L (137-145); Total Bilirubin 0.3 mg/dL (0.2-1.3); Total Protein 6.7 g/dL (6.3-8.2)
[2016-10-26 13:16] LABS: Prothrombin Time 10.3 sec (9.0-12.0)
[2016-10-26 13:25] LABS: Creatine Kinase 48 U/L (30-135)
[2016-10-26 13:28] LABS: Partial Thromboplastin Time 20.8 sec (22.0-30.0)
--- NOTE | 2016-10-26 13:28 | XR ---
EXAMINATION TYPE: XR chest 2V DATE OF EXAM: 10/26/2016 COMPARISON: Prior chest x-ray 04/14/2016 HISTORY: Weakness and dizziness TECHNIQUE: Frontal and lateral views of the chest are obtained. FINDINGS: There is no focal air space opacity, pleural effusion, or pneumothorax seen. The cardiac silhouette size is within normal limits. The osseous structures are intact. IMPRESSION: No acute cardiopulmonary process.
[2016-10-26 13:39] LABS: Creatine Kinase MB 1.3 ng/mL (0.0-2.4); Troponin I <0.012 ng/mL (0.000-0.034)
[2016-10-26 14:16] LABS: Appearance,Urine Cloudy (Clear); Bilirubin,Urine Negative (Negative); Glucose,Urine (UA) 3+ (Negative); Ketones,Urine Negative (Negative); Leukocyte Esterase,Urine Large (Negative); Nitrite,Urine Negative (Negative); PH, Urine 5.5 (5.0-8.0); Particle Count 54798; Protein,Urine Trace (Negative); RBC,Urine 4 /hpf (0-5); Specific Gravity,Urine 1.004 (1.001-1.035); UA Billing (MACRO vs. MICRO) MICRO; Urobilinogen,Urine <2.0 mg/dL (<2.0); WBC,Urine >182 /hpf (0-5)
[2016-10-26] MEDS ORDERED: cefTRIAXone 2,000 MG in SODIUM CHLORIDE 0.9% 100 ML IVPB STA (14:20)
[2016-10-26] MEDS ORDERED: SODIUM CHLORIDE 0.9% 500 ML IV ONE (14:22)
[2016-10-26 16:30] VITALS: BP 145/69; PULSE 108; TEMP 97.5
== END 2016-10-26 16:30 | disposition home or self-care (01) ==
LOC: EC 12:18
DX: N39.0 Urinary tract infection, site not specified (principal); E11.9 Type 2 diabetes mellitus without complications; K21.9 Gastro-esophageal reflux disease without esophagitis; F32.9 Major depressive disorder, single episode, unspecified; Z87.891 Personal history of nicotine dependence; Z79.84 Long term (current) use of oral hypoglycemic drugs; Z79.899 Other long term (current) drug therapy; Z88.1 Allergy status to other antibiotic agents; Z88.5 Allergy status to narcotic agent
CPT/HCPCS: 36415; 93005; 80053; 82550; 82553; 83735; 84484; 85025; 85610; 85730; 81001; 87086; 71020; 99285; 96365; 96361; J0696; 87077; 87186

== ENCOUNTER 2017-02-26 18:15 | Emergency (ER) | payer OTHER ==
[2017-02-26 18:32] VITALS: TEMP 97.9
--- NOTE | 2017-02-26 18:52 | ED ---
General Adult HPI - General Chief complaint: Fall Stated complaint: Fall Time Seen by Provider: 02/26/17 18:32 Source: patient, RN notes reviewed Mode of arrival: EMS Limitations: no limitations - History of Present Illness Initial comments: Patient is 61-year-old female who presents emergency room today by EMS with a chief complaint of a fall that occurred just prior to arrival. Patient states that she slipped on the ice and fell hitting the back of her head. She states she is unsure if she lost consciousness. She states [place] the [place] station. She states she is not sure who called EMS. She admits to some neck pain but denies any other complaints at this time. Patient denies any recent fever, chills, shortness of breath, chest pain, back pain, abdominal pain, nausea or vomiting, numbness or tingling, dysuria or hematuria, constipation or diarrhea, visual changes, or any other complaints. - Related Data Home Medications Medication Instructions Recorded Confirmed DULoxetine HCL [Cymbalta] 60 mg PO DAILY 10/11/16 02/26/17 Ergocalciferol [Vitamin D2] 50,000 unit PO MO 10/11/16 02/26/17 Fenofibrate Nanocrystallized 145 mg PO DAILY 10/11/16 02/26/17 [Fenofibrate] Magnesium Oxide 400 mg PO DAILY 10/11/16 02/26/17 busPIRone HCL [Buspar] 30 mg PO BID 10/11/16 02/26/17 glipiZIDE [Glucotrol] 10 mg PO BID 10/11/16 02/26/17 metFORMIN HCL [Glucophage] 500 mg PO BID 10/11/16 02/26/17 Ammonium Lactate Cream [Lac-Hydrin 1 applic TOPICAL BID 10/26/16 02/26/17 12% Cream] Triamcinolone 0.5% Cream [Kenalog 1 applic TOPICAL BID 10/26/16 02/26/17 0.5% Cream] Carbidopa-Levodopa 25-100 mg 1 tab PO BID 02/26/17 02/26/17 [Sinemet 25-100] Ranitidine HCl 150 mg PO BID 02/26/17 02/26/17 Allergies Allergy/AdvReac Type Severity Reaction Status Date / Time codeine Allergy Unknown Verified 02/26/17 18:28 erythromycin base Allergy Unknown Verified 02/26/17 18:28 [Erythromycin Base] Review of Systems ROS Statement: Those systems with pertinent positive or pertinent negative responses have been documented in the HPI. ROS Other: All systems not noted in ROS Statement are negative. Past Medical History Past Medical History: Diabetes Mellitus, GERD/Reflux, Osteoarthritis (OA) Additional Past Medical History / Comment(s): parkinsons History of Any Multi-Drug Resistant Organisms: None Reported Additional Past Surgical History / Comment(s): eye surgery, Past Anesthesia/Blood Transfusion Reactions: No Reported Reaction Past Psychological History: Depression Smoking Status: Former smoker Past Alcohol Use History: None Reported, Rare Past Drug Use History: None Reported General Exam - General Exam Comments Initial Comments: General: The patient is awake and alert, in no distress, and does not appear acutely ill. Eye: Pupils are equal, round and reactive to light, extra-ocular movements are intact. No nystagmus. There is normal conjunctiva bilaterally. No signs of icterus. Ears, nose, mouth and throat: There are moist mucous membranes and no oral lesions. Neck: The neck is supple, there is no tenderness or JVD. Cardiovascular: There is a regular rate and rhythm. No murmur, rub or gallop is appreciated. Respiratory: Lungs are clear to auscultation, respirations are non-labored, breath sounds are equal. No wheezes, stridor, rales, or rhonchi. Gastrointestinal: Soft, non-distended, non-tender abdomen without masses or organomegaly noted. There is no rebound or guarding present. No CVA tenderness. Bowel sounds are unremarkable. Musculoskeletal: Normal ROM, no tenderness. No tenderness in cervical, thoracic spine. Patient does have some tenderness to the lower thoracic at L2 to L4. Strength 5/5. Sensation intact. Pulses equal bilaterally 2+. Neurological: A&O x 3. CN II-XII intact, There are no obvious motor or sensory deficits. Coordination appears grossly intact. Speech is normal. Skin: Skin is warm and dry and no rashes or lesions are noted. Psychiatric: Cooperative, appropriate mood & affect, normal judgment. Limitations: no limitations Course Vital Signs 02/26/17 02/26/17 18:28 19:16 Temperature 97.9 F Pulse Rate 110 H 102 H Respiratory 16 18 Rate Blood Pressure 140/75 147/71 O2 Sat by Pulse 98 100 Oximetry Medical Decision Making - Medical Decision Making Patient's x-ray reviewed does show a old wedge fracture at T11. Patient's CT of the head and neck are negative. Patient discussed and seen with by attending physician Dr. Gonzales. At this time patient states she would like to be discharged home. Patient's been advised follow-up the family doctor over the next 2 days. Advised return here to the emergency room symptoms increase or worsen. Signs and symptoms of concussion were discussed with the patient. Patient states understanding. Disposition Clinical Impression: Fall, Concussion Disposition: HOME SELF-CARE Condition: Good Instructions: Concussion (ED) Additional Instructions: Please limit physical activity. Please follow up with family doctor over the next 2 days. Please return to emergency room symptoms increase or worsen Referrals: Estevan Pierce MD [Primary Care Provider] - 1-2 days Time of Disposition: 20:06
--- NOTE | 2017-02-26 19:58 | XR ---
PROCEDURE: XR lumbar spine 3V DATE AND TIME: 02/26/2017 6:55 PM REFERRING PHYSICIAN: Sabino Villanueva CLINICAL INDICATION: PHH, Pain. Patient slipped and fell backwards on ice today. TECHNIQUE: Department protocol. COMPARISON: 07/27/2013 FINDINGS: There is no fracture or malalignment. The previously seen T11 vertebral body wedging is red emonstrated. Advanced degenerative L4-5 disc changes and facet changes are noted. The soft tissues are unremarkable. IMPRESSION: NO ACUTE PROCESS.
--- NOTE | 2017-02-26 20:00 | CT ---
EXAMINATION TYPE: CT brain yeison maciel DATE OF EXAM: 02/26/2017 COMPARISON: NONE HISTORY: Multiple fall injuries. CT DLP: 1256.7 mGycm Automated exposure control for dose reduction was used. TECHNIQUE: CT scan of the head and cervical spine are performed without contrast. FINDINGS: There is no acute intracranial hemorrhage, mass effect, or midline shift identified. The ventricles and sulci are within normal limits in size. The globes are intact and the visualized sin uses are clear. Cervical spine is visualized in its entirety from C1 through upper thoracic levels and demonstrates s atisfactory alignment without evidence of acute fracture or dislocation. Comment multilevel cervical spondylosis changes are noted. Prevertebral soft tissue appears within normal limits. The C1-C2 art iculation is unremarkable. IMPRESSION: 1. THERE IS NO ACUTE FRACTURE OR DISLOCATION EVIDENT IN THE CERVICAL SPINE. 2. NO ACUTE INTRACRANIAL HEMORRHAGE, MASS EFFECT, OR MIDLINE SHIFT IS SEEN.
[2017-02-26 21:32] VITALS: BP 132/73; PULSE 113; RESP 16
== END 2017-02-26 21:32 | disposition home or self-care (01) ==
LOC: EC 18:15
DX: S06.0X0A Concussion without loss of consciousness, initial encounter (principal); M54.2 Cervicalgia; E11.9 Type 2 diabetes mellitus without complications; K21.9 Gastro-esophageal reflux disease without esophagitis; F32.9 Major depressive disorder, single episode, unspecified; Z87.891 Personal history of nicotine dependence; Z79.84 Long term (current) use of oral hypoglycemic drugs; Z79.899 Other long term (current) drug therapy; Z88.5 Allergy status to narcotic agent; Z88.1 Allergy status to other antibiotic agents; W00.0XXA Fall on same level due to ice and snow, initial encounter; W22.8XXA Striking against or struck by other objects, initial encounter; Y92.89 Other specified places as the place of occurrence of the external cause
CPT/HCPCS: 70450; 72100; 72125; 99284

== ENCOUNTER 2017-09-03 11:48 | Inpatient (IN) | payer OTHER ==
[2017-09-03] MEDS ORDERED: SODIUM CHLORIDE 0.9% 1,000 ML IV STA ×3 (11:50)
--- NOTE | 2017-09-03 12:06 | XR ---
EXAMINATION TYPE: XR chest 1V portable DATE OF EXAM: 09/03/2017 CLINICAL HISTORY: Pain TECHNIQUE: Single frontal view of the chest is obtained. COMPARISON: None FINDINGS: Limited inspiration noted. There is no focal air space opacity, pleural effusion, or pneumo thorax seen. The cardiac silhouette size is within normal limits. The osseous structures are intac t. IMPRESSION: No acute process. Examination limited by degree of inspiration.
--- NOTE | 2017-09-03 12:08 | ED ---
General Adult HPI - General Chief complaint: Altered Mental Status Stated complaint: Unresponsive Time Seen by Provider: 09/03/17 11:50 Source: EMS, RN notes reviewed, old records reviewed Mode of arrival: EMS Limitations: altered mental status - History of Present Illness Initial comments: This is a Etta Ratliff patient presented for altered mental state, found down. He does have some evidence of facial trauma secondary to likely fall from standing. Patient again found down and hot environment, patient unresponsive poor strain, history obtained from EMS - Related Data Home Medications Medication Instructions Recorded Confirmed Albuterol Nebulized [Ventolin 3 ml INHALATION RT-DAILY PRN 09/03/17 09/03/17 Nebulized] Carbidopa-Levodopa 25-100 mg 1 tab PO BID 09/03/17 09/03/17 [Sinemet 25-100] Ergocalciferol (Vitamin D2) 50,000 unit PO Q7DAYS 09/03/17 09/03/17 [Vitamin D2] Fenofibrate Nanocrystallized 145 mg PO DAILY 09/03/17 09/03/17 [Fenofibrate] Magnesium Oxide 400 mg PO DAILY 09/03/17 09/03/17 Omeprazole 20 mg PO AC-BRKFST 09/03/17 09/03/17 Omeprazole [PriLOSEC] 20 mg PO BID 09/03/17 09/03/17 Ranitidine HCl 150 mg PO BID 09/03/17 09/03/17 glipiZIDE [Glucotrol] 10 mg PO BID 09/03/17 09/03/17 metFORMIN HCL [Glucophage] 500 mg PO BID 09/03/17 09/03/17 Allergies Allergy/AdvReac Type Severity Reaction Status Date / Time azithromycin Allergy Unknown Verified 09/03/17 12:58 Review of Systems ROS Statement: Those systems with pertinent positive or pertinent negative responses have been documented in the HPI. ROS Other: All systems not noted in ROS Statement are negative. Past Medical History Past Medical History: Unable to Obtain History of Any Multi-Drug Resistant Organisms: Unobtainable Past Surgical History: Unable to Obtain Past Psychological History: Unable to Obtain Smoking Status: Unknown if ever smoked Past Alcohol Use History: Unable to Obtain Past Drug Use History: Unable to Obtain General Exam Limitations: altered mental status General appearance: alert, lethargic, obtunded, in distress Head exam: Present: atraumatic, normocephalic, normal inspection Eye exam: Present: normal appearance, PERRL, EOMI. Absent: scleral icterus, conjunctival injection, periorbital swelling ENT exam: Present: normal exam, mucous membranes dry Neck exam: Present: normal inspection. Absent: tenderness, meningismus, lymphadenopathy Respiratory exam: Present: normal lung sounds bilaterally. Absent: respiratory distress, wheezes, rales, rhonchi, stridor Cardiovascular Exam: Present: normal rhythm, tachycardia, normal heart sounds. Absent: systolic murmur, diastolic murmur, rubs, gallop, clicks GI/Abdominal exam: Present: soft, normal bowel sounds. Absent: distended, tenderness, guarding, rebound, rigid Extremities exam: Present: normal inspection, full ROM, normal capillary refill. Absent: tenderness, pedal edema, joint swelling, calf tenderness Back exam: Present: normal inspection Neurological exam: Present: alert, oriented X3, CN II-XII intact Psychiatric exam: Present: normal affect, normal mood Skin exam: Present: warm, dry, intact, normal color. Absent: rash Course Vital Signs 09/03/17 09/03/17 09/03/17 11:51 13:17 13:42 Temperature 101.5 F H 98.1 F Pulse Rate 157 H 109 H 115 H Respiratory 18 18 18 Rate Blood Pressure 138/71 127/68 129/61 O2 Sat by Pulse 93 L 98 96 Oximetry - Reevaluation(s) Reevaluation #1: 09/03/17 12:08 Medical record is reviewed Reevaluation #2: 09/03/17 14:05 Patient is improved with fever control and hydration EKG Findings - EKG Comments: EKG Findings:: EKG shows sinus tachycardia rate 1:15, NH 140, QRS 60, QTc 411 Medical Decision Making - Lab Data Result diagrams: 09/03/17 11:50 09/03/17 11:50 Lab Results 09/03/17 09/03/17 09/03/17 Range/Units 11:50 11:50 11:50 WBC (3.8-10.6) k/uL RBC (3.80-5.40) m/uL Hgb (11.4-16.0) gm/dL Hct (34.0-46.0) % MCV (80.0-100.0) fL MCH (25.0-35.0) pg MCHC (31.0-37.0) g/dL RDW (11.5-15.5) % Plt Count (150-450) k/uL Neutrophils % % Lymphocytes % % Monocytes % % Eosinophils % % Basophils % % Neutrophils # (1.3-7.7) k/uL Lymphocytes # (1.0-4.8) k/uL Monocytes # (0-1.0) k/uL Eosinophils # (0-0.7) k/uL Basophils # (0-0.2) k/uL PT (9.0-12.0) sec INR (<1.2) APTT (22.0-30.0) sec Sodium 140 (137-145) mmol/L Potassium 4.7 (3.5-5.1) mmol/L Chloride 106 (98-107) mmol/L Carbon Dioxide 16 L (22-30) mmol/L Anion Gap 18 mmol/L BUN 26 H (7-17) mg/dL Creatinine 1.45 H (0.52-1.04) mg/dL Est GFR (CKD-EPI)AfAm 30 (>60 ml/min/1.73 sqM) Est GFR (CKD-EPI)NonAf 26 (>60 ml/min/1.73 sqM) Glucose 241 H (74-99) mg/dL Plasma Lactic Acid Subhash 2.5 H* (0.7-2.0) mmol/L Calcium 11.1 H (8.4-10.2) mg/dL Phosphorus 3.7 (2.5-4.5) mg/dL Magnesium 1.8 (1.6-2.3) mg/dL Total Bilirubin 0.6 (0.2-1.3) mg/dL AST 26 (14-36) U/L ALT 17 (9-52) U/L Alkaline Phosphatase 60 (38-126) U/L Ammonia 22 (<30) umol/L Total Creatine Kinase 131 (30-135) U/L CK-MB (CK-2) 0.7 (0.0-2.4) ng/mL CK-MB (CK-2) Rel Index 0.5 Troponin I <0.012 (0.000-0.034) ng/mL Total Protein 7.4 (6.3-8.2) g/dL Albumin 4.5 (3.5-5.0) g/dL TSH 0.519 (0.465-4.680) mIU/L Urine Color Urine Appearance (Clear) Urine pH (5.0-8.0) Ur Specific Kohler (1.001-1.035) Urine Protein (Negative) Urine Glucose (UA) (Negative) Urine Ketones (Negative) Urine Blood (Negative) Urine Nitrite (Negative) Urine Bilirubin (Negative) Urine Urobilinogen (<2.0) mg/dL Ur Leukocyte Esterase (Negative) Urine WBC (0-5) /hpf Urine WBC Clumps (None) /hpf Urine Bacteria (None) /hpf Urine Mucus (None) /hpf Salicylates <1.0 mg/dL Urine Opiates Screen (NotDetected) Ur Oxycodone Screen (NotDetected) Urine Methadone Screen (NotDetected) Ur Propoxyphene Screen (NotDetected) Acetaminophen <10.0 ug/mL Ur Barbiturates Screen (NotDetected) U Tricyclic Antidepress (NotDetected) Ur Phencyclidine Scrn (NotDetected) Ur Amphetamines Screen (NotDetected) U Methamphetamines Scrn (NotDetected) U Benzodiazepines Scrn (NotDetected) Urine Cocaine Screen (NotDetected) U Marijuana (THC) Screen (NotDetected) Serum Alcohol <10 mg/dL Acetone, Qual Positive (Negative) 09/03/17 09/03/17 09/03/17 Range/Units 11:50 11:50 12:00 WBC 6.7 (3.8-10.6) k/uL RBC 4.43 (3.80-5.40) m/uL Hgb 11.8 (11.4-16.0) gm/dL Hct 37.0 (34.0-46.0) % MCV 83.5 (80.0-100.0) fL MCH 26.7 (25.0-35.0) pg MCHC 32.0 (31.0-37.0) g/dL RDW 15.3 (11.5-15.5) % Plt Count 192 (150-450) k/uL Neutrophils % 76 % Lymphocytes % 17 % Monocytes % 5 % Eosinophils % 0 % Basophils % 0 % Neutrophils # 5.1 (1.3-7.7) k/uL Lymphocytes # 1.1 (1.0-4.8) k/uL Monocytes # 0.3 (0-1.0) k/uL Eosinophils # 0.0 (0-0.7) k/uL Basophils # 0.0 (0-0.2) k/uL PT 10.7 (9.0-12.0) sec INR 1.1 (<1.2) APTT 22.2 (22.0-30.0) sec Sodium (137-145) mmol/L Potassium (3.5-5.1) mmol/L Chloride (98-107) mmol/L Carbon Dioxide (22-30) mmol/L Anion Gap mmol/L BUN (7-17) mg/dL Creatinine (0.52-1.04) mg/dL Est GFR (CKD-EPI)AfAm (>60 ml/min/1.73 sqM) Est GFR (CKD-EPI)NonAf (>60 ml/min/1.73 sqM) Glucose (74-99) mg/dL Plasma Lactic Acid Subhash (0.7-2.0) mmol/L Calcium (8.4-10.2) mg/dL Phosphorus (2.5-4.5) mg/dL Magnesium (1.6-2.3) mg/dL Total Bilirubin (0.2-1.3) mg/dL AST (14-36) U/L ALT (9-52) U/L Alkaline Phosphatase (38-126) U/L Ammonia (<30) umol/L Total Creatine Kinase (30-135) U/L CK-MB (CK-2) (0.0-2.4) ng/mL CK-MB (CK-2) Rel Index Troponin I (0.000-0.034) ng/mL Total Protein (6.3-8.2) g/dL Albumin (3.5-5.0) g/dL TSH (0.465-4.680) mIU/L Urine Color Yellow Urine Appearance Cloudy H (Clear) Urine pH 5.5 (5.0-8.0) Ur Specific Kohler 1.009 (1.001-1.035) Urine Protein Trace H (Negative) Urine Glucose (UA) Negative (Negative) Urine Ketones Negative (Negative) Urine Blood Negative (Negative) Urine Nitrite Negative (Negative) Urine Bilirubin Negative (Negative) Urine Urobilinogen <2.0 (<2.0) mg/dL Ur Leukocyte Esterase Large H (Negative) Urine WBC 140 H (0-5) /hpf Urine WBC Clumps Moderate H (None) /hpf Urine Bacteria Occasional H (None) /hpf Urine Mucus Rare H (None) /hpf Salicylates mg/dL Urine Opiates Screen Not Detected (NotDetected) Ur Oxycodone Screen Not Detected (NotDetected) Urine Methadone Screen Not Detected (NotDetected) Ur Propoxyphene Screen Not Detected (NotDetected) Acetaminophen ug/mL Ur Barbiturates Screen Not Detected (NotDetected) U Tricyclic Antidepress Not Detected (NotDetected) Ur Phencyclidine Scrn Not Detected (NotDetected) Ur Amphetamines Screen Not Detected (NotDetected) U Methamphetamines Scrn Not Detected (NotDetected) U Benzodiazepines Scrn Not Detected (NotDetected) Urine Cocaine Screen Not Detected (NotDetected) U Marijuana (THC) Screen Not Detected (NotDetected) Serum Alcohol mg/dL Acetone, Qual (Negative) - Radiology Data Radiology results: report reviewed (CT brain C-spine negative chest x-rays negative), image reviewed Disposition Clinical Impression: Altered mental status, UTI (urinary tract infection), Fever Disposition: ADMITTED IP TO THIS [facility] Condition: Good Is patient prescribed a controlled substance at d/c from ED?: No Referrals: Nonstaff,Physician [REFERRING] - 1-2 days
[2017-09-03 12:16] LABS: Basophils % (A) 0 %; Eosinophils % (A) 0 %; HGB 11.8 gm/dL (11.4-16.0); Lymphocytes # (A) 1.1 k/uL (1.0-4.8); Lymphocytes % (A) 17 %; MCH 26.7 pg (25.0-35.0); MCV 83.5 fL (80.0-100.0); Mean Platelet Volume 6.7; Monocytes # (A) 0.3 k/uL (0-1.0); Monocytes % (A) 5 %; Neutrophils # (A) 5.1 k/uL (1.3-7.7); Neutrophils % (A) 76 %; Platelet Count 192 k/uL (150-450); RBC 4.43 m/uL (3.80-5.40); RDW 15.3 % (11.5-15.5); WBC 6.7 k/uL (3.8-10.6)
[2017-09-03 12:27] LABS: Lactic Acid, Venous 2.5 mmol/L (0.7-2.0)
[2017-09-03 12:29] LABS: ALT 17 U/L (9-52); AST 26 U/L (14-36); Acetaminophen <10.0 ug/mL; Albumin 4.5 g/dL (3.5-5.0); Alcohol <10 mg/dL; Alkaline Phosphatase 60 U/L (38-126); Anion Gap 18 mmol/L; Blood Urea Nitrogen 26 mg/dL (7-17); Calcium 11.1 mg/dL (8.4-10.2); Carbon Dioxide 16 mmol/L (22-30); Chloride 106 mmol/L (98-107); Glucose 241 mg/dL (74-99); Magnesium 1.8 mg/dL (1.6-2.3); Phosphorus 3.7 mg/dL (2.5-4.5); Potassium 4.7 mmol/L (3.5-5.1); Salicylate <1.0 mg/dL; Sodium 140 mmol/L (137-145); Total Bilirubin 0.6 mg/dL (0.2-1.3); Total Protein 7.4 g/dL (6.3-8.2)
[2017-09-03] MEDS ORDERED: ACETAMINOPHEN IV (For NPO) 1,000 MG in EMPTY BAG 1 BAG IVPB STA (12:30)
[2017-09-03 12:34] LABS: INR 1.1 (<1.2); Partial Thromboplastin Time 22.2 sec (22.0-30.0); Prothrombin Time 10.7 sec (9.0-12.0)
[2017-09-03 12:42] LABS: Creatine Kinase 131 U/L (30-135)
--- NOTE | 2017-09-03 12:51 | CT ---
EXAMINATION TYPE: CT brain yeison diaz con DATE OF EXAM: 09/03/2017 COMPARISON: 03/02/2017 HISTORY: Unresponsive CT DLP: 1383.[address] of the brain was performed. The ventricles, basal cisterns and sulci overlying the cerebral convexities demonstrate moderate enla rgement. There is no evidence for intracranial hemorrhage or sulcal effacement. There is decreased attenuatio n about the periventricular white matter and deep white matter of both cerebral hemispheres, compatib le with chronic small vessel ischemia. No mass effects are seen. If symptoms persist consider MRI. Osseous calvarium is intact. IMPRESSION: 1. Age related atrophic and chronic small vessel ischemic change without acute intracranial process seen at this time. CT Cervical Spine: Unenhanced CT of the cervical spine was performed with bone and soft tissue window settings submitted . Coronal and sagittal reconstruction is obtained. There is normal alignment and prevertebral soft tissues. No evidence for acute cervical fracture . Severe Scattered degenerative disc disease and spondylosis. Biapical scarring. IMPRESSION: 1. No evidence for acute fracture or subluxation of the cervical spine.
[2017-09-03 12:53] LABS: Creatine Kinase MB 0.7 ng/mL (0.0-2.4); Troponin I <0.012 ng/mL (0.000-0.034)
[2017-09-03 12:53] LABS: Appearance,Urine Cloudy (Clear); Bacteria,Urine Occasional /hpf; Bilirubin,Urine Negative (Negative); Blood,Urine Negative (Negative); Color,Urine Yellow; Glucose,Urine (UA) Negative (Negative); Ketones,Urine Negative (Negative); Leukocyte Esterase,Urine Large (Negative); Mucus,Urine Rare /hpf; Nitrite,Urine Negative (Negative); PH, Urine 5.5 (5.0-8.0); Protein,Urine Trace (Negative); Specific Gravity,Urine 1.009 (1.001-1.035); Urobilinogen,Urine <2.0 mg/dL (<2.0); WBC,Urine 140 /hpf (0-5)
[2017-09-03 12:55] LABS: Amphetamine Screen,Urine Not Detected (NotDetected); Barbiturate Screen,Urine Not Detected (NotDetected); Benzodiazepines Screen,Urine Not Detected (NotDetected); Cocaine Screen,Urine Not Detected (NotDetected); Methadone Screen, Urine Not Detected (NotDetected); Opiate Screen,Urine Not Detected (NotDetected); Oxycodone Screen, Urine Not Detected (NotDetected); Phencyclidine Screen,Urine Not Detected (NotDetected); Tricyclic Antidepressant,Urine Not Detected (NotDetected); Urn Cannabinoid Scrn Not Detected (NotDetected)
[2017-09-03] MEDS ORDERED: cefTRIAXone 2,000 MG in SODIUM CHLORIDE 0.9% 100 ML IVPB STA (12:57)
[2017-09-03] MEDS ORDERED: cefTRIAXone IN SWFI 2,000 MG/20 ML SYRINGE IVP STA (12:59)
[2017-09-03] MEDS ORDERED: PNEUMOCOCCAL VACC-PNEUMOVAX 23 25 MCG/0.5 ML VIAL IM ONE (15:11)
[2017-09-03 15:15] LABS: Glucose,Whole Blood 174 mg/dL (75-99)
[2017-09-03] MEDS ORDERED: ALBUTEROL NEBULIZED 2.5 MG/3 ML INHALATION PRN (16:11)
[2017-09-03 17:20] LABS: Glucose,Whole Blood 146 mg/dL (75-99)
--- NOTE | 2017-09-03 17:29 | P.HPIM ---
History of Present Illness 61-year-old female with significant psychiatric problems and the follows up with , to mental health and [facility] home resident was found unresponsive but to ER with a facial trauma CT of the head and neck were negative. Patient apparently was lost and left the group she is supposed to be with. Patient was found later with face down. Patient was unresponsive when she came to ER was able to provide any history. When I saw the patient she is awake alert and able to provide me history alert oriented 3. Patient was admitted to the hospital with concerns of urinary tract infection. Patient does have abnormal urine although denied any symptoms of UTI including increased urinary frequency or urgency patient does not have any leukocytosis does have abnormal urine with highly elevated WBC in the urine urine cultures were obtained. Patient doesn't have any fevers patient when questioned did have lightheadedness does use walker had falls in the past as well. Patient was being treated for suspected Parkinson's and abnormal gait uses a walker. Patient did feel lightheaded. Patient does have abnormally elevated BUN/creatinine creatinine of 1.4 patient' s lactic acidosis can be related to dehydration or urinary tract infection that cannot be ruled in or ruled out or metformin related. Anyway patient will be can you done antibiotics IV fluids possibly of discharge tomorrow patient will be on sliding scale insulin hold off on oral hypoglycemic agents. Blood sugars were okay about 174 on admission. Urine drug screen was negative. Patient is alert appropriate when I evaluated the patient. Review of Systems REVIEW OF SYSTEMS: CONSTITUTIONAL: No fever, no malaise, no fatigue. HEENT: No recent visual problems or hearing problems. Denied any sore throat. CARDIOVASCULAR: No chest pain, orthopnea, PND, no palpitations, no syncope. PULMONARY: No shortness of breath, no cough, no hemoptysis. GASTROINTESTINAL: No diarrhea, no nausea, no vomiting, no abdominal pain. Normoactive bowel sounds. NEUROLOGICAL: No headaches, no weakness, no numbness. HEMATOLOGICAL: Denies any bleeding or petechiae. GENITOURINARY: Denies any burning micturition, frequency, or urgency. MUSCULOSKELETAL/RHEUMATOLOGICAL: Denies any joint pain, swelling, or any muscle pain. ENDOCRINE: Denies any polyuria or polydipsia. The rest of the 14-point review of systems is negative. 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 Smoking Status: Former smoker - Past Family History Father Family Medical History: Coronary Artery Disease (CAD), Myocardial Infarction (AR ) Additional Family Medical History / Comment(s): Father of a AR at the age of 70yrs. Mother Family Medical History: Liver Disease Additional Family Medical History / Comment(s): Mother from alcoholic liver cirrhosis in her early 70s. Medications and Allergies Home Medications Medication Instructions Recorded Confirmed Type Albuterol Nebulized [Ventolin 3 ml INHALATION RT-DAILY PRN 09/03/17 09/03/17 History Nebulized] Carbidopa-Levodopa 25-100 mg 1 tab PO BID 09/03/17 09/03/17 History [Sinemet 25-100] Ergocalciferol (Vitamin D2) 50,000 unit PO Q7DAYS 09/03/17 09/03/17 History [Vitamin D2] Fenofibrate Nanocrystallized 145 mg PO DAILY 09/03/17 09/03/17 History [Fenofibrate] Magnesium Oxide 400 mg PO DAILY 09/03/17 09/03/17 History Omeprazole 20 mg PO AC-BRKFST 09/03/17 09/03/17 History Omeprazole [PriLOSEC] 20 mg PO BID 09/03/17 09/03/17 History Ranitidine HCl 150 mg PO BID 09/03/17 09/03/17 History glipiZIDE [Glucotrol] 10 mg PO BID 09/03/17 09/03/17 History metFORMIN HCL [Glucophage] 500 mg PO BID 09/03/17 09/03/17 History Allergies Allergy/AdvReac Type Severity Reaction Status Date / Time azithromycin Allergy Unknown Verified 09/03/17 12:58 Physical Exam Vitals: Vital Signs Temp Pulse Pulse Resp BP BP Pulse Ox 09/03/17 15:51 109 H 18 09/03/17 15:10 98.1 F 109 H 18 142/79 100 09/03/17 14:34 97.3 F L 104 H 18 127/68 100 09/03/17 13:42 115 H 18 129/61 96 09/03/17 13:17 98.1 F 109 H 18 127/68 98 09/03/17 11:51 101.5 F H 157 H 18 138/71 93 L Intake and Output 09/03/17 09/03/17 09/03/17 06:59 14:59 22:59 Other: Weight 68.946 kg PHYSICAL EXAMINATION: GENERAL: The patient is alert and oriented x3, not in any acute distress. Well developed, well nourished. HEENT: Pupils are round and equally reacting to light. EOMI. No scleral icterus. No conjunctival pallor. Normocephalic, patient does have bruises on the 4 head and nose and nasal bridge No pharyngeal erythema. No thyromegaly. CARDIOVASCULAR: S1 and S2 present. No murmurs, rubs, or gallops. PULMONARY: Chest is clear to auscultation, no wheezing or crackles. ABDOMEN: Soft, nontender, nondistended, normoactive bowel sounds. No palpable organomegaly. MUSCULOSKELETAL: No joint swelling or deformity. EXTREMITIES: No cyanosis, clubbing, or pedal edema. NEUROLOGICAL: Gross neurological examination did not reveal any focal deficits. SKIN: No rashes. Results CBC & Chem 7: 09/03/17 11:50 09/03/17 11:50 Labs: Abnormal Lab Results - Last 24 Hours (Table) 09/03/17 09/03/17 09/03/17 Range/Units 11:50 11:50 12:00 Carbon Dioxide 16 L (22-30) mmol/L BUN 26 H (7-17) mg/dL Creatinine 1.45 H (0.52-1.04) mg/dL Glucose 241 H (74-99) mg/dL POC Glucose (mg/dL) (75-99) mg/dL Plasma Lactic Acid Subhash 2.5 H* (0.7-2.0) mmol/L Calcium 11.1 H (8.4-10.2) mg/dL Urine Appearance Cloudy H (Clear) Urine Protein Trace H (Negative) Ur Leukocyte Esterase Large H (Negative) Urine WBC 140 H (0-5) /hpf Urine WBC Clumps Moderate H (None) /hpf Urine Bacteria Occasional H (None) /hpf Urine Mucus Rare H (None) /hpf 09/03/17 09/03/17 Range/Units 15:03 17:08 Carbon Dioxide (22-30) mmol/L BUN (7-17) mg/dL Creatinine (0.52-1.04) mg/dL Glucose (74-99) mg/dL POC Glucose (mg/dL) 174 H 146 H (75-99) mg/dL Plasma Lactic Acid Subhash (0.7-2.0) mmol/L Calcium (8.4-10.2) mg/dL Urine Appearance (Clear) Urine Protein (Negative) Ur Leukocyte Esterase (Negative) Urine WBC (0-5) /hpf Urine WBC Clumps (None) /hpf Urine Bacteria (None) /hpf Urine Mucus (None) /hpf Thrombosis Risk Factor Assmnt - Choose All That Apply Any of the Below Risk Factors Present?: Yes Each Factor Represents 1 point: Obesity (BMI >25) Other Risk Factors: Yes Each Risk Factor Represents 2 Points: Age 61-74 years Other congenital or acquired thrombophilia - If yes, enter type in comment: No Thrombosis Risk Factor Assessment Total Risk Factor Score: 3 Thrombosis Risk Factor Assessment Level: Moderate Risk Assessment and Plan Plan: -Episode of unresponsiveness, possibly of syncopal episode may be related to urinary tract infection or dehydration, continue with IV fluids can you with Rocephin awaiting urine cultures, I cannot rule out a urinary tract infection because of which I'm continue the antibiotics. I'll obtain echocardiogram -Possibility of dehydration and acute renal failure: Continue with IV fluids and repeat the basic metabolic profile tomorrow. -Lactic acidosis: Either secondary to infection or dehydration or from metformin and metformin will be held -Type 2 diabetes mellitus can't sliding scale for now -Gastroesophageal reflux disease -Possible Parkinson's on carbidopa levodopa which will be continued -Asthma without any acute exacerbation -Anxiety depression and other psychiatric issues: Patient will be discharged to a facility facility and follow-up with, and the mental health
[2017-09-03] MEDS: INSULIN ASPART 100 UNIT/ML 1 ML 10 ML VIAL SQ SCH ×2 (18:07→21:21)
[2017-09-03] MEDS: SODIUM CHLORIDE 0.9% 1,000 ML IV SCH (18:08)
[2017-09-03 20:19] LABS: Glucose,Whole Blood 96 mg/dL (75-99)
[2017-09-03] MEDS: CARBIDOPA-LEVODOPA 25-100 MG 1 EACH TAB PO SCH (22:01)
[2017-09-03] MEDS: cefTRIAXone IN SWFI 1,000 MG/10 ML SYRINGE IVP SCH (22:01)
[2017-09-04 01:15] LABS: Hemoglobin A1C 7.8 % (4.0-6.0)
[2017-09-04] MEDS: SODIUM CHLORIDE 0.9% 1,000 ML IV SCH ×3 (06:15→17:10)
[2017-09-04 07:15] LABS: Glucose,Whole Blood 88 mg/dL (75-99)
[2017-09-04] MEDS: ENOXAPARIN 40 MG/0.4 ML SYRINGE SQ SCH (08:25)
[2017-09-04] MEDS: cefTRIAXone IN SWFI 1,000 MG/10 ML SYRINGE IVP SCH ×2 (08:25→20:53)
[2017-09-04] MEDS: CARBIDOPA-LEVODOPA 25-100 MG 1 EACH TAB PO SCH ×2 (08:25→20:53)
[2017-09-04] MEDS: PANTOPRAZOLE 40 MG TABLET PO SCH (08:25)
[2017-09-04] MEDS: INSULIN ASPART 100 UNIT/ML 1 ML 10 ML VIAL SQ SCH ×4 (08:35→20:53)
[2017-09-04 10:28] VITALS: BMI 26.9
--- NOTE | 2017-09-04 11:33 | ECHOF ---
Referral Reason:syncope MEASUREMENTS -------- HEIGHT: 160.0 cm WEIGHT: 68.9 kg BP: 129/70 IVSd: 0.8 cm (0.6 - 1.1) LVIDd: 3.8 cm (3.9 - 5.3) LVPWd: 0.7 cm (0.6 - 1.1) IVSs: 1.8 cm LVIDs: 1.5 cm LVPWs: 1.3 cm LAESV Index (A-L): 20.91 ml/m Ao Diam: 2.8 cm (2.0 - 3.7) AV Cusp: 1.9 cm (1.5 - 2.6) LA Diam: 3.2 cm (2.7 - 3.8) MV EXCURSION: 11.106 mm (> 18.000) MV EF SLOPE: 32 mm/s (70 - 150) EPSS: 0.2 cm MV E Mick: 0.70 m/s MV DecT: 161 ms MV A Mick: 1.06 m/s MV E/A Ratio: 0.66 AR PHT: 373 ms RAP: 5.00 mmHg RVSP: 14.95 mmHg FINDINGS -------- Sinus rhythm. This was a technically good study. The left ventricular size is normal. Left ventricular wall thickness is normal. Overall left vent ricular systolic function is normal with, an EF between 55 - 60 %. The right ventricle is normal in size. The left atrium is normal in size. The right atrium is normal in size. Aortic valve is trileaflet and is mildly thickened. There is mild aortic regurgitation. The mitral valve leaflets are mildly thickened. Mild mitral annular calcification present. Mild m itral regurgitation is present. Trace tricuspid regurgitation present. The right ventricular systolic pressure, as measured by Dopp ler, is 14.95mmHg. Pulmonic valve appears structurally normal. The aortic root size is normal. The pericardium is normal. CONCLUSIONS -------- 1. Sinus rhythm. 2. This was a technically good study. 3. The left ventricular size is normal. 4. Left ventricular wall thickness is normal. 5. Overall left ventricular systolic function is normal with, an EF between 55 - 60 %. 6. The right ventricle is normal in size. 7. The left atrium is normal in size. 8. The right atrium is normal in size. 9. Aortic valve is trileaflet and is mildly thickened. 10. There is mild aortic regurgitation. 11. The mitral valve leaflets are mildly thickened. 12. Mild mitral annular calcification present. 13. Mild mitral regurgitation is present. 14. Trace tricuspid regurgitation present. 15. The right ventricular systolic pressure, as measured by Doppler, is 14.95mmHg. 16. Pulmonic valve appears structurally normal. 17. The aortic root size is normal. 18. The pericardium is normal. PATTERN FINISHER: Allyson Nathan RDCS
[2017-09-04 12:05] LABS: Glucose,Whole Blood 135 mg/dL (75-99)
[2017-09-04 12:21] LABS: Calcium 9.5 mg/dL (8.4-10.2); Potassium 3.8 mmol/L (3.5-5.1)
[2017-09-04 12:33] LABS: HCT 30.2 % (34.0-46.0); MCH 26.6 pg (25.0-35.0); MCV 83.3 fL (80.0-100.0); Mean Platelet Volume 6.6; Platelet Count 135 k/uL (150-450); RBC 3.62 m/uL (3.80-5.40); RDW 15.4 % (11.5-15.5)
[2017-09-04 12:36] LABS: HGB 9.7 gm/dL (11.4-16.0)
[2017-09-04] MEDS ORDERED: VANCOMYCIN IV PER PHARMACY 1 EACH MISC MISCELLANE PRN (13:51)
[2017-09-04] MEDS ORDERED: VANCOMYCIN 1,250 MG in SODIUM CHLORIDE 0.9% 250 ML IVPB STA (13:51)
[2017-09-04 17:44] LABS: Glucose,Whole Blood 103 mg/dL (75-99)
[2017-09-04 20:26] LABS: Glucose,Whole Blood 200 mg/dL (75-99)
[2017-09-05] MEDS: VANCOMYCIN 1,250 MG in SODIUM CHLORIDE 0.9% 250 ML IVPB SCH (05:42)
[2017-09-05 07:07] LABS: Glucose,Whole Blood 156 mg/dL (75-99)
[2017-09-05] MEDS: PANTOPRAZOLE 40 MG TABLET PO SCH (08:30)
[2017-09-05] MEDS: INSULIN ASPART 100 UNIT/ML 1 ML 10 ML VIAL SQ SCH ×4 (08:30→21:12)
[2017-09-05] MEDS: CARBIDOPA-LEVODOPA 25-100 MG 1 EACH TAB PO SCH ×2 (08:31→21:15)
[2017-09-05] MEDS: SODIUM CHLORIDE 0.9% 1,000 ML IV SCH (08:31)
[2017-09-05] MEDS: cefTRIAXone IN SWFI 1,000 MG/10 ML SYRINGE IVP SCH ×2 (08:31→21:15)
[2017-09-05] MEDS: ENOXAPARIN 40 MG/0.4 ML SYRINGE SQ SCH (08:31)
[2017-09-05 10:54] LABS: HCT 33.2 % (34.0-46.0); HGB 10.5 gm/dL (11.4-16.0); MCH 26.4 pg (25.0-35.0); MCHC 31.7 g/dL (31.0-37.0); MCV 83.3 fL (80.0-100.0); Mean Platelet Volume 6.6; Platelet Count 149 k/uL (150-450); RBC 3.98 m/uL (3.80-5.40); RDW 15.2 % (11.5-15.5); WBC 4.3 k/uL (3.8-10.6)
[2017-09-05 11:11] LABS: Calcium 9.7 mg/dL (8.4-10.2); Potassium 3.9 mmol/L (3.5-5.1)
--- NOTE | 2017-09-05 11:17 | P.PN ---
Subjective Progress Note Date: 09/04/17 61-year-old admitted after a fall and syncopal episode. Patient is being treated for urinary tract infection patient is on Rocephin.is also being treated for acute renal failure pending labs. Constitutional: Denied any fatigue denied any fever. Cardio vascular: denied any chest pain, palpitations Gastrointestinal denied any nausea vomiting Pulmonary: Denied any shortness of breath cough Neurologic denied any new focal deficits Objective - Vital Signs Vital signs: Vital Signs Temp 98.2 F 09/05/17 05:57 Pulse 76 09/05/17 05:57 Resp 16 09/05/17 05:57 BP 127/60 09/05/17 05:57 Pulse Ox 94 L 09/05/17 05:57 Intake & Output 09/04/17 09/05/17 09/05/17 18:59 06:59 18:59 Intake Total 1140 1540 Balance 1140 1540 Weight 68.946 kg Intake: Intake, IV Titration 600 950 Amount Sodium Chloride 0.9% 1, 700 000 ml @ 100 mls/hr IV . Q10H NATHALIE Rx#:[id number] Sodium Chloride 0.9% 1, 600 000 ml @ 100 mls/hr IV . Q10H STA Rx#:[id number] Vancomycin 1,250 mg In 250 Sodium Chloride 0.9% 250 ml @ 125 mls/hr IVPB ONCE STA Rx#:[id number] Oral 540 590 Other: Voiding Method Toilet Toilet Toilet # Voids 5 3 - Exam PHYSICAL EXAMINATION: GENERAL: The patient is alert and oriented x3, not in any acute distress. Well developed, well nourished. HEENT: Pupils are round and equally reacting to light. EOMI. No scleral icterus. No conjunctival pallor. Normocephalic, patient does have bruises on the 4 head and nose and nasal bridge No pharyngeal erythema. No thyromegaly. CARDIOVASCULAR: S1 and S2 present. No murmurs, rubs, or gallops. PULMONARY: Chest is clear to auscultation, no wheezing or crackles. ABDOMEN: Soft, nontender, nondistended, normoactive bowel sounds. No palpable organomegaly. MUSCULOSKELETAL: No joint swelling or deformity. EXTREMITIES: No cyanosis, clubbing, or pedal edema. NEUROLOGICAL: Gross neurological examination did not reveal any focal deficits. SKIN: No rashes. - Labs CBC & Chem 7: 09/05/17 10:28 09/04/17 11:57 Labs: Abnormal Lab Results - Last 24 Hours (Table) 09/04/17 09/04/17 09/04/17 Range/Units 11:57 11:57 12:03 RBC 3.62 L (3.80-5.40) m/uL Hgb 9.7 L D (11.4-16.0) gm/dL Hct 30.2 L (34.0-46.0) % Plt Count 135 L (150-450) k/uL Chloride 109 H (98-107) mmol/L Glucose 142 H (74-99) mg/dL POC Glucose (mg/dL) 135 H (75-99) mg/dL 09/04/17 09/04/17 09/05/17 Range/Units 17:23 20:25 07:05 RBC (3.80-5.40) m/uL Hgb (11.4-16.0) gm/dL Hct (34.0-46.0) % Plt Count (150-450) k/uL Chloride (98-107) mmol/L Glucose (74-99) mg/dL POC Glucose (mg/dL) 103 H 200 H 156 H (75-99) mg/dL 09/05/17 Range/Units 10:28 RBC (3.80-5.40) m/uL Hgb 10.5 L (11.4-16.0) gm/dL Hct 33.2 L (34.0-46.0) % Plt Count 149 L (150-450) k/uL Chloride (98-107) mmol/L Glucose (74-99) mg/dL POC Glucose (mg/dL) (75-99) mg/dL Microbiology - Last 24 Hours (Table) 09/03/17 11:50 Blood Culture Gram Stain - Preliminary Blood Blood Culture - Preliminary Coagulase Negative Staph 09/03/17 12:00 Urine Culture - Preliminary Urine,Catheterized Gram Neg Bacilli 09/03/17 11:50 Blood Culture - Final Blood Assessment and Plan Plan: -Episode of unresponsiveness, possibly of syncopal episode may be related to urinary tract infection or dehydration, continue with IV fluids can you with Rocephin awaiting urine cultures, I cannot rule out a urinary tract infection because of which I'm continue the antibiotics. echocardiac him did not show any significant abnormality dehydration and acute renal failure: Continue with IV fluids and repeat the basic metabolic profile tomorrow. -Lactic acidosis: resolved can be related to dehydration, infection along with metformin and metformin is being held -Type 2 diabetes mellitus can't sliding scale for now -Gastroesophageal reflux disease -Possible Parkinson's on carbidopa levodopa which will be continued -Asthma without any acute exacerbation -Anxiety depression and other psychiatric issues: Patient will be discharged to a facility facility and follow-up with, and the mental health
[2017-09-05 11:46] LABS: Glucose,Whole Blood 211 mg/dL (75-99)
--- NOTE | 2017-09-05 15:36 | P.PN ---
Subjective 61-year-old admitted after a fall and syncopal episode. Patient is being treated for urinary tract infection patient is on Rocephin.is also being treated for acute renal failure pending labs. 09/05/2017 Patient's urine cultures are positive for gram-negative bacilli IV fluids will be discontinued and in patient can continue by mouth fluids. Blood cultures are positive for coag is negative staph which is a contamination Constitutional: Denied any fatigue denied any fever. Cardio vascular: denied any chest pain, palpitations Gastrointestinal denied any nausea vomiting Pulmonary: Denied any shortness of breath cough Neurologic denied any new focal deficits Objective - Vital Signs Vital signs: Vital Signs Temp 98.2 F 09/05/17 05:57 Pulse 76 09/05/17 05:57 Resp 16 09/05/17 05:57 BP 127/60 09/05/17 05:57 Pulse Ox 94 L 09/05/17 05:57 Intake & Output 09/04/17 09/05/17 09/05/17 18:59 06:59 18:59 Intake Total 1140 1540 900 Output Total 1 Balance 1140 1540 899 Weight 68.946 kg Intake: Intake, IV Titration 600 950 900 Amount Sodium Chloride 0.9% 1, 700 400 000 ml @ 100 mls/hr IV . Q10H NATHALIE Rx#:[id number] Sodium Chloride 0.9% 1, 600 000 ml @ 100 mls/hr IV . Q10H STA Rx#:[id number] Vancomycin 1,250 mg In 250 500 Sodium Chloride 0.9% 250 ml @ 125 mls/hr IVPB ONCE STA Rx#:[id number] Oral 540 590 Output: Urine 1 Other: Voiding Method Toilet Toilet Toilet # Voids 5 3 # Bowel Movements 1 - Exam PHYSICAL EXAMINATION: GENERAL: The patient is alert and oriented x3, not in any acute distress. Well developed, well nourished. HEENT: Pupils are round and equally reacting to light. EOMI. No scleral icterus. No conjunctival pallor. Normocephalic, patient does have bruises on the 4 head and nose and nasal bridge No pharyngeal erythema. No thyromegaly. CARDIOVASCULAR: S1 and S2 present. No murmurs, rubs, or gallops. PULMONARY: Chest is clear to auscultation, no wheezing or crackles. ABDOMEN: Soft, nontender, nondistended, normoactive bowel sounds. No palpable organomegaly. MUSCULOSKELETAL: No joint swelling or deformity. EXTREMITIES: No cyanosis, clubbing, or pedal edema. NEUROLOGICAL: Gross neurological examination did not reveal any focal deficits. SKIN: No rashes. - Labs CBC & Chem 7: 09/05/17 10:28 09/05/17 10:28 Labs: Abnormal Lab Results - Last 24 Hours (Table) 09/04/17 09/04/17 09/05/17 Range/Units 17:23 20:25 07:05 Hgb (11.4-16.0) gm/dL Hct (34.0-46.0) % Plt Count (150-450) k/uL Chloride (98-107) mmol/L Carbon Dioxide (22-30) mmol/L Glucose (74-99) mg/dL POC Glucose (mg/dL) 103 H 200 H 156 H (75-99) mg/dL 09/05/17 09/05/17 09/05/17 Range/Units 10:28 10:28 11:44 Hgb 10.5 L (11.4-16.0) gm/dL Hct 33.2 L (34.0-46.0) % Plt Count 149 L (150-450) k/uL Chloride 110 H (98-107) mmol/L Carbon Dioxide 20 L (22-30) mmol/L Glucose 200 H (74-99) mg/dL POC Glucose (mg/dL) 211 H (75-99) mg/dL Microbiology - Last 24 Hours (Table) 09/03/17 11:50 Blood Culture Gram Stain - Preliminary Blood Blood Culture - Preliminary Coagulase Negative Staph 09/03/17 12:00 Urine Culture - Preliminary Urine,Catheterized Gram Neg Bacilli 09/03/17 11:50 Blood Culture - Final Blood Assessment and Plan Plan: -Episode of unresponsiveness, possibly of syncopal episode may be related to urinary tract infection or dehydration, discontinued IV fluids Rocephin awaiting urine cultures, patient probably has both urinary tract infection and acute renal failure from dehydration -Lactic acidosis: resolved can be related to dehydration, infection along with metformin and metformin is being held -Type 2 diabetes mellitus can't sliding scale for now -Gastroesophageal reflux disease -Possible Parkinson's on carbidopa levodopa which will be continued -Asthma without any acute exacerbation -Anxiety depression and other psychiatric issues: Patient will be discharged to a facility facility and follow-up with, and the mental health
[2017-09-05 17:33] LABS: Glucose,Whole Blood 183 mg/dL (75-99)
[2017-09-05 20:34] LABS: Glucose,Whole Blood 120 mg/dL (75-99)
[2017-09-06 05:52] VITALS: BP 126/69; PULSE 80; RESP 16; TEMP 97.8
[2017-09-06] MEDS: VANCOMYCIN 1,250 MG in SODIUM CHLORIDE 0.9% 250 ML IVPB SCH (05:58)
[2017-09-06 06:58] LABS: Glucose,Whole Blood 165 mg/dL (75-99)
[2017-09-06] MEDS: ENOXAPARIN 40 MG/0.4 ML SYRINGE SQ SCH (07:18)
[2017-09-06] MEDS: PANTOPRAZOLE 40 MG TABLET PO SCH (07:18)
[2017-09-06] MEDS: CARBIDOPA-LEVODOPA 25-100 MG 1 EACH TAB PO SCH (07:19)
[2017-09-06] MEDS: INSULIN ASPART 100 UNIT/ML 1 ML 10 ML VIAL SQ SCH ×2 (07:19→11:47)
[2017-09-06 08:24] LABS: Potassium 4.1 mmol/L (3.5-5.1)
[2017-09-06] MEDS: cefTRIAXone IN SWFI 1,000 MG/10 ML SYRINGE IVP SCH (09:15)
--- NOTE | 2017-09-06 11:23 | P.DS ---
Providers Date of admission: 09/03/17 14:04 Attending physician: Juan De León Primary care physician: Stan Sanchez [facility] Course: 61-year-old admitted after a fall and syncopal episode. Patient is being treated for urinary tract infection patient is on Rocephin.is also being treated for acute renal failure pending labs. 09/05/2017 Patient's urine cultures are positive for gram-negative bacilli IV fluids will be discontinued and in patient can continue by mouth fluids. Blood cultures are positive for coag is negative staph which is a contamination 09/06/2017 Patient has E. coli in the urine which is pansensitive patient will be discharged on ciprofloxacin for 3 more days completing 7 day course of therapy. Patient will be discharged [facility] home today. Patient blood sugars are within normal and meds and only received a total of 3-4 units yesterday. Patient glipizide dose will be decreased to 5 mg twice a day metformin will be discontinued because of lactic acidosis creatinine improved. PHYSICAL EXAMINATION: GENERAL: The patient is alert and oriented x3, not in any acute distress. Well developed, well nourished. HEENT: Pupils are round and equally reacting to light. EOMI. No scleral icterus. No conjunctival pallor. Normocephalic, atraumatic. No pharyngeal erythema. No thyromegaly. CARDIOVASCULAR: S1 and S2 present. No murmurs, rubs, or gallops. PULMONARY: Chest is clear to auscultation, no wheezing or crackles. ABDOMEN: Soft, nontender, nondistended, normoactive bowel sounds. No palpable organomegaly. MUSCULOSKELETAL: No joint swelling or deformity. EXTREMITIES: No cyanosis, clubbing, or pedal edema. NEUROLOGICAL: Gross neurological examination did not reveal any focal deficits. SKIN: No rashes. . Assessment and Plan Plan: -Episode of unresponsiveness, possibly of syncopal episode may be related to urinary tract infection or dehydration, -Lactic acidosis: resolved can be related to dehydration, infection along with metformin and metformin is being held. Lactic acidosis resolved -Type 2 diabetes mellitus -Gastroesophageal reflux disease -Possible Parkinson's on carbidopa levodopa which will be continued -Asthma without any acute exacerbation -Anxiety depression and other psychiatric issues: Patient will be discharged to a facility facility and follow-up with, [facility] Patient Condition at Discharge: Good Plan - Discharge Summary Discharge Rx Participant: No New Discharge Prescriptions: New glipiZIDE [Glucotrol] 5 mg PO AC-BID #60 tab Ciprofloxacin HCl [Cipro] 500 mg PO Q12HR #6 tablet Discontinued metFORMIN HCL [Glucophage] 500 mg PO BID glipiZIDE [Glucotrol] 10 mg PO BID No Action Carbidopa-Levodopa 25-100 mg [Sinemet 25-100] 1 tab PO BID Ergocalciferol (Vitamin D2) [Vitamin D2] 50,000 unit PO Q7DAYS Albuterol Nebulized [Ventolin Nebulized] 3 ml INHALATION RT-DAILY PRN PRN Reason: Shortness Of Breath Ranitidine HCl 150 mg PO BID Omeprazole 20 mg PO AC-BRKFST Magnesium Oxide 400 mg PO DAILY Fenofibrate Nanocrystallized [Fenofibrate] 145 mg PO DAILY Omeprazole [PriLOSEC] 20 mg PO BID Discharge Medication List Albuterol Nebulized [Ventolin Nebulized] 3 ml INHALATION RT-DAILY PRN 09/03/17 [ History] Carbidopa-Levodopa 25-100 mg [Sinemet 25-100] 1 tab PO BID 09/03/17 [History] Ergocalciferol (Vitamin D2) [Vitamin D2] 50,000 unit PO Q7DAYS 09/03/17 [History ] Fenofibrate Nanocrystallized [Fenofibrate] 145 mg PO DAILY 09/03/17 [History] Magnesium Oxide 400 mg PO DAILY 09/03/17 [History] Omeprazole 20 mg PO AC-BRKFST 09/03/17 [History] Omeprazole [PriLOSEC] 20 mg PO BID 09/03/17 [History] Ranitidine HCl 150 mg PO BID 09/03/17 [History] Ciprofloxacin HCl [Cipro] 500 mg PO Q12HR #6 tablet 09/06/17 [Rx] glipiZIDE [Glucotrol] 5 mg PO AC-BID #60 tab 09/06/17 [Rx] Follow up Appointment(s)/Referral(s): Smiley Ortiz MD [STAFF PHYSICIAN] - 1 Week (patient to call for appointment on Thursday, office is currently closed) Nonstaff,Physician [REFERRING] - 1-2 days (follow up with primary care provider , call for appointment,) Patient Instructions/Handouts: Ciprofloxacin (By mouth), Glipizide (By mouth), Urinary Tract Infection in Women (DC), Fever in Adults (GEN), Altered Mental Status (GEN) Activity/Diet/Wound Care/Special Instructions: [facility] - Discharge Disposition: HOME SELF-CARE
[2017-09-06 11:36] LABS: Glucose,Whole Blood 145 mg/dL (75-99)
== END 2017-09-06 13:10 | disposition home or self-care (01) | DRG 690 ==
LOC: EC 11:48 → EEVIPCON 14:04 → 5MS5E 14:04 → MERGE 14:04 → 5MS5E 14:24
PROVIDERS: ADMIT Hospitalist; ATTEND Hospitalist
DX: N39.0 Urinary tract infection, site not specified (principal); E87.2 Acidosis; N17.9 Acute kidney failure, unspecified; B96.20 Unspecified Escherichia coli [E. coli] as the cause of diseases classified elsewhere; E11.9 Type 2 diabetes mellitus without complications; G25.81 Restless legs syndrome; M19.90 Unspecified osteoarthritis, unspecified site; R55 Syncope and collapse; J45.909 Unspecified asthma, uncomplicated; K21.9 Gastro-esophageal reflux disease without esophagitis; F41.9 Anxiety disorder, unspecified; F32.9 Major depressive disorder, single episode, unspecified; W18.30XA Fall on same level, unspecified, initial encounter; E66.9 Obesity, unspecified; Z89.422 Acquired absence of other left toe(s); Z79.4 Long term (current) use of insulin; Z82.49 Family history of ischemic heart disease and other diseases of the circulatory system; Z87.891 Personal history of nicotine dependence; Z87.01 Personal history of pneumonia (recurrent); Z79.84 Long term (current) use of oral hypoglycemic drugs; Z79.899 Other long term (current) drug therapy; Z88.1 Allergy status to other antibiotic agents; Z68.26 Body mass index [BMI] 26.0-26.9, adult
CPT/HCPCS: 36415; 51702; 70450; 71045; 72125; 80048; 80053; 80306; 80320; 81001; 82009; 82140; 82550; 82553; 83036; 83520; 83605; 83735; 84100; 84443; 84484; 85025; 85027; 85610; 85730; 87040; 87077; 87086; 87186; 93005; 93306; 94760; 96361; 96374; 96375; 99285

== ENCOUNTER 2017-09-25 18:00 | Inpatient (IN) | payer OTHER ==
[2017-09-25] MEDS ORDERED: IBUPROFEN 600 MG TAB PO STA (18:33)
[2017-09-25] MEDS ORDERED: ACETAMINOPHEN TAB 500 MG TAB PO STA (18:33)
[2017-09-25] MEDS ORDERED: cefTRIAXone IN SWFI 1,000 MG/10 ML SYRINGE IVP STA (18:33)
--- NOTE | 2017-09-25 18:55 | ED ---
General Adult HPI - General Chief complaint: Fall Stated complaint: Fall Time Seen by Provider: 09/25/17 18:19 Source: patient, EMS, RN notes reviewed, old records reviewed Mode of arrival: EMS Limitations: no limitations - History of Present Illness Initial comments: 61-year-old female presents emergency department today chief complaint of multiple falls. Patient was then extended care facility. Arrives to emergency Department with fever and 101.5. Recently medically for urinary tract infection and sepsis. Patient states that she has had a fall where she fell back and hit her head. She states she also has some minor abrasions over her knees. She reports she's been able to ambulate. She has been weak and unsteady. Patient has had no nausea or vomiting. Denies any abdominal pain or chest pain or shortness of breath. - Related Data Home Medications Medication Instructions Recorded Confirmed DULoxetine HCL [Cymbalta] 60 mg PO DAILY 10/11/16 09/25/17 Fenofibrate Nanocrystallized 145 mg PO DAILY 10/11/16 09/25/17 [Fenofibrate] busPIRone HCL [Buspar] 30 mg PO BID 10/11/16 09/25/17 glipiZIDE [Glucotrol] 10 mg PO BID 10/11/16 09/25/17 Carbidopa-Levodopa 25-100 mg 1 tab PO Q12H 02/26/17 09/25/17 [Sinemet 25-100 mg] OLANZapine [ZyPREXA] 10 mg PO HS 03/02/17 09/25/17 Albuterol Nebulized [Ventolin 3 ml INHALATION RT-DAILY PRN 09/03/17 09/25/17 Nebulized] Ergocalciferol (Vitamin D2) 50,000 unit PO MO 09/03/17 09/25/17 [Vitamin D2] Magnesium Oxide 400 mg PO DAILY 09/03/17 09/25/17 Omeprazole [PriLOSEC] 20 mg PO BID 09/03/17 09/25/17 Ranitidine HCl 150 mg PO BID 09/03/17 09/25/17 Previous Rx's Medication Instructions Recorded glipiZIDE [Glucotrol] 5 mg PO AC-BID #60 tab 09/06/17 Allergies Allergy/AdvReac Type Severity Reaction Status Date / Time amoxicillin Allergy Unknown Verified 09/25/17 19:33 azithromycin Allergy Unknown Verified 09/25/17 19:33 codeine Allergy Unknown Verified 09/25/17 19:33 erythromycin base Allergy Unknown Verified 09/25/17 19:33 [Erythromycin Base] Review of Systems ROS Statement: Those systems with pertinent positive or pertinent negative responses have been documented in the HPI. ROS Other: All systems not noted in ROS Statement are negative. 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 Past Psychological History: Anxiety, Depression Past Alcohol Use History: None Reported, Rare - Past Family History Father Family Medical History: Coronary Artery Disease (CAD), Myocardial Infarction (TX ) Additional Family Medical History / Comment(s): Father of a [place] at the age of 70yrs. Mother Family Medical History: Liver Disease Additional Family Medical History / Comment(s): Mother from alcoholic liver cirrhosis in her early 70s. General Exam - General Exam Comments Initial Comments: 61-year-old female. Alert and oriented. No significant distress. Limitations: no limitations General appearance: alert, in no apparent distress Head exam: Present: atraumatic, normocephalic, normal inspection Eye exam: Present: normal appearance, PERRL, EOMI. Absent: scleral icterus, conjunctival injection, periorbital swelling ENT exam: Present: normal exam, mucous membranes moist Neck exam: Present: normal inspection. Absent: tenderness, meningismus, lymphadenopathy Respiratory exam: Present: normal lung sounds bilaterally. Absent: respiratory distress, wheezes, rales, rhonchi, stridor Cardiovascular Exam: Present: regular rate, normal rhythm, normal heart sounds. Absent: systolic murmur, diastolic murmur, rubs, gallop, clicks GI/Abdominal exam: Present: soft, tenderness (Suprapubic tenderness.), normal bowel sounds. Absent: distended, guarding, rebound, rigid Extremities exam: Present: normal inspection, full ROM, normal capillary refill , other (Patient has 2 small abrasions of bilateral knees. Full range of motion of knee noted. Normal sensation and pulses distally.). Absent: tenderness, pedal edema, joint swelling, calf tenderness Back exam: Present: normal inspection Neurological exam: Present: alert, oriented X3, CN II-XII intact Psychiatric exam: Present: normal affect, normal mood Skin exam: Present: warm, dry, intact, normal color. Absent: rash Course Vital Signs 09/25/17 18:10 Temperature 101.5 F H Pulse Rate 119 H Respiratory 18 Rate Blood Pressure 126/67 O2 Sat by Pulse 96 Oximetry Medical Decision Making - Medical Decision Making 61-year-old female present emergency department with a chief complaint of multiple falls. [facility]. Patient reports that she did hit her head. Not on blood thinners. She arrives emergency department tachycardic and fever 101.5. She was recently admitted for urosepsis. Patient has evidence of urinary tract infection at this time. Patient reports that she has no other major complaints related to her falls. Denies any significant abdominal pain chest pain or shortness of breath. She did have some suprapubic tenderness. Patient was started on IV fluids, lab work was obtained. Lab work was negative for any significant changes. Lactic acid was normal. At this time urinalysis is positive for infection 25 white blood cells. Multiple bacteria. Urine culture obtained. Patient will be admitted at this time for weakness, multiple falls, and urosepsis. Started on 1 g of Rocephin. - Lab Data Result diagrams: 09/25/17 18:46 09/25/17 18:46 Lab Results 09/25/17 09/25/17 09/25/17 Range/Units 18:46 18:46 18:46 WBC 6.5 (3.8-10.6) k/uL RBC 4.14 (3.80-5.40) m/uL Hgb 10.9 L (11.4-16.0) gm/dL Hct 34.4 (34.0-46.0) % MCV 82.9 (80.0-100.0) fL MCH 26.2 (25.0-35.0) pg MCHC 31.6 (31.0-37.0) g/dL RDW 14.9 (11.5-15.5) % Plt Count 165 (150-450) k/uL Neutrophils % 86 % Lymphocytes % 8 % Monocytes % 5 % Eosinophils % 0 % Basophils % 0 % Neutrophils # 5.6 (1.3-7.7) k/uL Lymphocytes # 0.5 L (1.0-4.8) k/uL Monocytes # 0.3 (0-1.0) k/uL Eosinophils # 0.0 (0-0.7) k/uL Basophils # 0.0 (0-0.2) k/uL PT (9.0-12.0) sec INR (<1.2) APTT (22.0-30.0) sec Sodium 137 (137-145) mmol/L Potassium 4.5 (3.5-5.1) mmol/L Chloride 103 (98-107) mmol/L Carbon Dioxide 25 (22-30) mmol/L Anion Gap 9 mmol/L BUN 24 H (7-17) mg/dL Creatinine 1.20 H (0.52-1.04) mg/dL Est GFR (CKD-EPI)AfAm 57 (>60 ml/min/1.73 sqM) Est GFR (CKD-EPI)NonAf 49 (>60 ml/min/1.73 sqM) Glucose 336 H (74-99) mg/dL Plasma Lactic Acid Subhash (0.7-2.0) mmol/L Calcium 10.1 (8.4-10.2) mg/dL Total Bilirubin 0.4 (0.2-1.3) mg/dL AST 21 (14-36) U/L ALT 20 (9-52) U/L Alkaline Phosphatase 60 (38-126) U/L Total Creatine Kinase <20 L (30-135) U/L CK-MB (CK-2) <0.2 (0.0-2.4) ng/mL CK-MB (CK-2) Rel Index Troponin I <0.012 (0.000-0.034) ng/mL Total Protein 6.5 (6.3-8.2) g/dL Albumin 3.7 (3.5-5.0) g/dL Urine Color Urine Appearance (Clear) Urine pH (5.0-8.0) Ur Specific Ermine (1.001-1.035) Urine Protein (Negative) Urine Glucose (UA) (Negative) Urine Ketones (Negative) Urine Blood (Negative) Urine Nitrite (Negative) Urine Bilirubin (Negative) Urine Urobilinogen (<2.0) mg/dL Ur Leukocyte Esterase (Negative) Urine RBC (0-5) /hpf Urine WBC (0-5) /hpf Ur Squamous Epith Cells (0-4) /hpf Urine Bacteria (None) /hpf Hyaline Casts (0-2) /lpf 09/25/17 09/25/17 09/25/17 Range/Units 18:46 18:46 18:46 WBC (3.8-10.6) k/uL RBC (3.80-5.40) m/uL Hgb (11.4-16.0) gm/dL Hct (34.0-46.0) % MCV (80.0-100.0) fL MCH (25.0-35.0) pg MCHC (31.0-37.0) g/dL RDW (11.5-15.5) % Plt Count (150-450) k/uL Neutrophils % % Lymphocytes % % Monocytes % % Eosinophils % % Basophils % % Neutrophils # (1.3-7.7) k/uL Lymphocytes # (1.0-4.8) k/uL Monocytes # (0-1.0) k/uL Eosinophils # (0-0.7) k/uL Basophils # (0-0.2) k/uL PT 10.7 (9.0-12.0) sec INR 1.1 (<1.2) APTT 23.8 (22.0-30.0) sec Sodium (137-145) mmol/L Potassium (3.5-5.1) mmol/L Chloride (98-107) mmol/L Carbon Dioxide (22-30) mmol/L Anion Gap mmol/L BUN (7-17) mg/dL Creatinine (0.52-1.04) mg/dL Est GFR (CKD-EPI)AfAm (>60 ml/min/1.73 sqM) Est GFR (CKD-EPI)NonAf (>60 ml/min/1.73 sqM) Glucose (74-99) mg/dL Plasma Lactic Acid Subhash 1.3 (0.7-2.0) mmol/L Calcium (8.4-10.2) mg/dL Total Bilirubin (0.2-1.3) mg/dL AST (14-36) U/L ALT (9-52) U/L Alkaline Phosphatase (38-126) U/L Total Creatine Kinase (30-135) U/L CK-MB (CK-2) (0.0-2.4) ng/mL CK-MB (CK-2) Rel Index Troponin I (0.000-0.034) ng/mL Total Protein (6.3-8.2) g/dL Albumin (3.5-5.0) g/dL Urine Color Yellow Urine Appearance Clear (Clear) Urine pH 6.5 (5.0-8.0) Ur Specific Ermine 1.013 (1.001-1.035) Urine Protein 1+ H (Negative) Urine Glucose (UA) 4+ H (Negative) Urine Ketones Negative (Negative) Urine Blood Small H (Negative) Urine Nitrite Negative (Negative) Urine Bilirubin Negative (Negative) Urine Urobilinogen <2.0 (<2.0) mg/dL Ur Leukocyte Esterase Large H (Negative) Urine RBC 20 H (0-5) /hpf Urine WBC 24 H (0-5) /hpf Ur Squamous Epith Cells <1 (0-4) /hpf Urine Bacteria Occasional H (None) /hpf Hyaline Casts 3 H (0-2) /lpf 09/25/17 19:26 EKG shows sinus tachycardia, possible inferior infarct. Age undetermined. Ventricular rate of 118 bpm. Was 148 ms. QRS duration 60 ms. QT QTc is 308/431 ms. - Radiology Data Radiology results: report reviewed X-rays negative for any active cardiopulmonary disease. Improved inspiration compared old exam. Cerebral atrophy. No acute intracranial abnormality. No change. Disposition Clinical Impression: Fall, UTI (urinary tract infection), Altered mental status, Sepsis Disposition: ADMITTED IP TO THIS HOSP Condition: Stable Referrals: Estevan Pierce MD [Primary Care Provider] - 1-2 days Time of Disposition: 21:08
[2017-09-25 18:58] LABS: Basophils % (A) 0 %; Eosinophils % (A) 0 %; HCT 34.4 % (34.0-46.0); HGB 10.9 gm/dL (11.4-16.0); Lymphocytes # (A) 0.5 k/uL (1.0-4.8); Lymphocytes % (A) 8 %; MCH 26.2 pg (25.0-35.0); MCHC 31.6 g/dL (31.0-37.0); MCV 82.9 fL (80.0-100.0); Mean Platelet Volume 6.9; Monocytes # (A) 0.3 k/uL (0-1.0); Monocytes % (A) 5 %; Neutrophils # (A) 5.6 k/uL (1.3-7.7); Neutrophils % (A) 86 %; Platelet Count 165 k/uL (150-450); RBC 4.14 m/uL (3.80-5.40); RDW 14.9 % (11.5-15.5); WBC 6.5 k/uL (3.8-10.6)
[2017-09-25 19:06] LABS: Appearance,Urine Clear (Clear); Bacteria,Urine Occasional /hpf; Bilirubin,Urine Negative (Negative); Blood,Urine Small (Negative); Color,Urine Yellow; Glucose,Urine (UA) 4+ (Negative); Hyaline Casts,Urine 3 /lpf (0-2); INR 1.1 (<1.2); Ketones,Urine Negative (Negative); Leukocyte Esterase,Urine Large (Negative); Nitrite,Urine Negative (Negative); PH, Urine 6.5 (5.0-8.0); Partial Thromboplastin Time 23.8 sec (22.0-30.0); Protein,Urine 1+ (Negative); Prothrombin Time 10.7 sec (9.0-12.0); RBC,Urine 20 /hpf (0-5); Specific Gravity,Urine 1.013 (1.001-1.035); Squamous Epithelial Cell,Urine <1 /hpf (0-4); Urobilinogen,Urine <2.0 mg/dL (<2.0); WBC,Urine 24 /hpf (0-5)
[2017-09-25] MEDS: SODIUM CHLORIDE 0.9% 500 ML IV SCH ×3 (19:11→21:36)
[2017-09-25 19:12] LABS: Albumin 3.7 g/dL (3.5-5.0); Calcium 10.1 mg/dL (8.4-10.2); Creatine Kinase <20 U/L (30-135); Potassium 4.5 mmol/L (3.5-5.1); Total Bilirubin 0.4 mg/dL (0.2-1.3); Total Protein 6.5 g/dL (6.3-8.2)
[2017-09-25 19:24] LABS: Creatine Kinase MB <0.2 ng/mL (0.0-2.4); Troponin I <0.012 ng/mL (0.000-0.034)
--- NOTE | 2017-09-25 19:56 | XR ---
EXAMINATION TYPE: XR chest 2V DATE OF EXAM: 09/25/2017 COMPARISON: 09/03/2017 HISTORY: Fever and weakness TECHNIQUE: Frontal and lateral views of the chest are obtained. FINDINGS: There is no heart failure nor confluent pneumonic infiltrate. Costophrenic angles are jensen r. Bony thorax is intact. There are chest leads. IMPRESSION: No active cardiopulmonary disease. There is improved inspiration compared to old exam.
--- NOTE | 2017-09-25 20:36 | CT ---
EXAMINATION TYPE: CT brain wo con DATE OF EXAM: 09/25/2017 COMPARISON: 09/03/2017 HISTORY: weakness, ams, confusion CT DLP: 978.2 mGycm Automated exposure control for dose reduction was used. FINDINGS: There is cerebral cortical atrophy. There is no mass effect nor midline shift. There is no sign of in tracranial hemorrhage. The calvarium is intact. IMPRESSION: CEREBRAL ATROPHY. NO ACUTE INTRACRANIAL ABNORMALITY. NO CHANGE.
[2017-09-25] MEDS ORDERED: ONDANSETRON 4 MG/2 ML VIAL IVP PRN (20:48)
[2017-09-25] MEDS ORDERED: NALOXONE 0.4 MG/ML 1 ML VIAL IV PRN (20:48)
[2017-09-25] MEDS ORDERED: ALBUTEROL NEBULIZED 2.5 MG/3 ML INHALATION PRN (20:49)
[2017-09-25] MEDS ORDERED: glipiZIDE 10 MG TAB PO SCH (21:00)
[2017-09-25 22:42] LABS: Glucose,Whole Blood 272 mg/dL (75-99)
[2017-09-25] MEDS: busPIRone HCl 10 MG TAB PO SCH (23:27)
[2017-09-25] MEDS: CARBIDOPA-LEVODOPA 25-100 MG 1 EACH TAB PO SCH (23:27)
[2017-09-25] MEDS: PANTOPRAZOLE 40 MG TABLET PO SCH (23:27)
[2017-09-25] MEDS: FAMOTIDINE 20 MG TAB PO SCH (23:27)
[2017-09-25] MEDS: SODIUM CHLORIDE 0.9% 1,000 ML IV SCH (23:27)
[2017-09-25] MEDS: OLANZapine 10 MG TAB PO SCH (23:27)
[2017-09-25] MEDS: INSULIN ASPART 100 UNIT/ML 1 ML 10 ML VIAL SQ SCH (23:28)
[2017-09-26 07:29] LABS: Glucose,Whole Blood 87 mg/dL (75-99)
[2017-09-26] MEDS: INSULIN ASPART 100 UNIT/ML 1 ML 10 ML VIAL SQ SCH ×4 (07:52→21:30)
[2017-09-26] MEDS: SODIUM CHLORIDE 0.9% 1,000 ML IV SCH ×3 (07:59→23:40)
[2017-09-26] MEDS: busPIRone HCl 10 MG TAB PO SCH ×2 (08:02→21:29)
[2017-09-26] MEDS: glipiZIDE 5 MG TAB PO SCH ×2 (08:02→17:34)
[2017-09-26] MEDS: PANTOPRAZOLE 40 MG TABLET PO SCH ×2 (08:02→17:34)
[2017-09-26] MEDS: FAMOTIDINE 20 MG TAB PO SCH ×2 (08:03→21:29)
[2017-09-26] MEDS: CARBIDOPA-LEVODOPA 25-100 MG 1 EACH TAB PO SCH ×2 (08:03→21:29)
[2017-09-26] MEDS: MAGNESIUM OXIDE 400 MG TAB PO SCH (09:11)
[2017-09-26] MEDS: FENOFIBRATE 160 MG TAB PO SCH (09:11)
[2017-09-26] MEDS: DULoxetine HCL 60 MG CAPSULE.DR PO SCH (09:11)
--- NOTE | 2017-09-26 11:22 | P.HPIM ---
History of Present Illness 61-year-old female presents emergency department today chief complaint of multiple falls. Patient was then extended care facility. Arrives to emergency Department with fever and 101.5. Recently medically for urinary tract infection and sepsis. Patient states that she has had a fall where she fell back and hit her head. She states she also has some minor abrasions over her knees. She reports she's been able to ambulate. She has been weak and unsteady. Patient has had no nausea or vomiting. Denies any abdominal pain or chest pain or shortness of breath. Patient denied any dysuria or increased urinary frequency. Patient is still bit confused but alert oriented times almost close to 3 patient was not able to tell me the year, she thinks it's 2014 Review of Systems REVIEW OF SYSTEMS: CONSTITUTIONAL: No fever, no malaise, no fatigue. HEENT: No recent visual problems or hearing problems. Denied any sore throat. CARDIOVASCULAR: No chest pain, orthopnea, PND, no palpitations, no syncope. PULMONARY: No shortness of breath, no cough, no hemoptysis. GASTROINTESTINAL: No diarrhea, no nausea, no vomiting, no abdominal pain. Normoactive bowel sounds. NEUROLOGICAL: No headaches, no weakness, no numbness. HEMATOLOGICAL: Denies any bleeding or petechiae. GENITOURINARY: Denies any burning micturition, frequency, or urgency. MUSCULOSKELETAL/RHEUMATOLOGICAL: Denies any joint pain, swelling, or any muscle pain. ENDOCRINE: Denies any polyuria or polydipsia. The rest of the 14-point review of systems is negative. 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 Past Psychological History: Anxiety, Depression Additional Psychological History / Comment(s): Pt resides alone. She has a cat. She no longer drives, she uses the bus. She manages her own medications. She goes to [facility] and sees Radha Darling. She states her mental health is stable at this time. She states in the past she has had suicidal thoughts but not for a long time now. Smoking Status: Former smoker Past Alcohol Use History: None Reported, Rare Additional Past Alcohol Use History / Comment(s): Pt smoked for one year, 1979- 1980. Past Drug Use History: None Reported - Past Family History Father Family Medical History: Coronary Artery Disease (CAD), Myocardial Infarction (OK ) Additional Family Medical History / Comment(s): Father of a OK at the age of 70yrs. Mother Family Medical History: Liver Disease Additional Family Medical History / Comment(s): Mother from alcoholic liver cirrhosis in her early 70s. Medications and Allergies Home Medications Medication Instructions Recorded Confirmed Type DULoxetine HCL [Cymbalta] 60 mg PO DAILY 10/11/16 09/25/17 History Fenofibrate Nanocrystallized 145 mg PO DAILY 10/11/16 09/25/17 History [Fenofibrate] busPIRone HCL [Buspar] 30 mg PO BID 10/11/16 09/25/17 History glipiZIDE [Glucotrol] 10 mg PO BID 10/11/16 09/25/17 History Carbidopa-Levodopa 25-100 mg 1 tab PO Q12H 02/26/17 09/25/17 History [Sinemet 25-100 mg] OLANZapine [ZyPREXA] 10 mg PO HS 03/02/17 09/25/17 History Albuterol Nebulized [Ventolin 3 ml INHALATION RT-DAILY PRN 09/03/17 09/25/17 History Nebulized] Ergocalciferol (Vitamin D2) 50,000 unit PO MO 09/03/17 09/25/17 History [Vitamin D2] Magnesium Oxide 400 mg PO DAILY 09/03/17 09/25/17 History Omeprazole [PriLOSEC] 20 mg PO BID 09/03/17 09/25/17 History Ranitidine HCl 150 mg PO BID 09/03/17 09/25/17 History glipiZIDE [Glucotrol] 5 mg PO AC-BID #60 tab 09/06/17 09/25/17 Rx Allergies Allergy/AdvReac Type Severity Reaction Status Date / Time amoxicillin Allergy Unknown Verified 09/25/17 19:33 azithromycin Allergy Unknown Verified 09/25/17 19:33 codeine Allergy Unknown Verified 09/25/17 19:33 erythromycin base Allergy Unknown Verified 09/25/17 19:33 [Erythromycin Base] Physical Exam Vitals: Vital Signs Temp Pulse Pulse Resp BP BP Pulse Ox 09/26/17 08:48 98.4 F 94 16 121/70 98 09/26/17 00:00 97.7 F 84 16 103 H 09/25/17 23:35 88 16 09/25/17 22:24 97.7 F 90 16 100/57 100 09/25/17 21:00 99.6 F 100 18 105/58 94 L 09/25/17 20:00 111 H 118/67 09/25/17 19:00 116 H 112/64 98 09/25/17 18:10 101.5 F H 119 H 18 126/67 96 Intake and Output 09/25/17 09/26/17 09/26/17 22:59 06:59 14:59 Intake Total 3322 Balance 3322 Intake: Intake, IV Titration 2532 Amount Sodium Chloride 0.9% 1, 532 000 ml @ 100 mls/hr IV . Q10H [facility] Rx#:[id number] Sodium Chloride 0.9% 500 2000 ml @ 1000 mls/hr IV Q35M [facility] Rx#:[id number] Oral 790 Other: Voiding Method Bedside Commode Bedpan Diaper Diaper Incontinent # Voids 4 2 # Bowel Movements 0 1 Weight 70.307 kg PHYSICAL EXAMINATION: GENERAL: The patient is alert and oriented x2-3, not in any acute distress. Well developed, well nourished. HEENT: Pupils are round and equally reacting to light. EOMI. No scleral icterus. No conjunctival pallor. Normocephalic, atraumatic. No pharyngeal erythema. No thyromegaly. CARDIOVASCULAR: S1 and S2 present. No murmurs, rubs, or gallops. PULMONARY: Chest is clear to auscultation, no wheezing or crackles. ABDOMEN: Soft, nontender, nondistended, normoactive bowel sounds. No palpable organomegaly. MUSCULOSKELETAL: No joint swelling or deformity. EXTREMITIES: No cyanosis, clubbing, or pedal edema. NEUROLOGICAL: Gross neurological examination did not reveal any focal deficits. SKIN: No rashes. Results CBC & Chem 7: 09/25/17 18:46 07 18:46 Labs: Abnormal Lab Results - Last 24 Hours (Table) 09/25/17 09/25/17 09/25/17 Range/Units 18:46 18:46 18:46 Hgb 10.9 L (11.4-16.0) gm/dL Lymphocytes # 0.5 L (1.0-4.8) k/uL BUN 24 H (7-17) mg/dL Creatinine 1.20 H (0.52-1.04) mg/dL Glucose 336 H (74-99) mg/dL POC Glucose (mg/dL) (75-99) mg/dL Total Creatine Kinase <20 L (30-135) U/L Urine Protein (Negative) Urine Glucose (UA) (Negative) Urine Blood (Negative) Ur Leukocyte Esterase (Negative) Urine RBC (0-5) /hpf Urine WBC (0-5) /hpf Urine Bacteria (None) /hpf Hyaline Casts (0-2) /lpf 09/25/17 09/25/17 Range/Units 18:46 22:18 Hgb (11.4-16.0) gm/dL Lymphocytes # (1.0-4.8) k/uL BUN (7-17) mg/dL Creatinine (0.52-1.04) mg/dL Glucose (74-99) mg/dL POC Glucose (mg/dL) 272 H (75-99) mg/dL Total Creatine Kinase (30-135) U/L Urine Protein 1+ H (Negative) Urine Glucose (UA) 4+ H (Negative) Urine Blood Small H (Negative) Ur Leukocyte Esterase Large H (Negative) Urine RBC 20 H (0-5) /hpf Urine WBC 24 H (0-5) /hpf Urine Bacteria Occasional H (None) /hpf Hyaline Casts 3 H (0-2) /lpf Microbiology - Last 24 Hours (Table) 09/25/17 18:46 Urine Culture - Preliminary Urine,Catheterized Thrombosis Risk Factor Assmnt - Choose All That Apply Any of the Below Risk Factors Present?: Yes Each Factor Represents 1 point: Sepsis (< 1month) Other Risk Factors: Yes Each Risk Factor Represents 2 Points: Age 61-74 years Thrombosis Risk Factor Assessment Total Risk Factor Score: 3 Thrombosis Risk Factor Assessment Level: Moderate Risk Assessment and Plan Plan: -Toxic encephalopathy: Possibly of urinary tract infection and sepsis. Patient is on Rocephin which will be continued awaiting urine cultures. -Sepsis possibly secondary to urinary tract infection -Parkinson's patient is on carbidopa levodopa -Type 2 diabetes mellitus -Gastroesophageal reflux disease -Asthma without any acute exacerbation -Anxiety and depression -Acute renal failure: Mild secondary to intravascular and patient patient will continue IV fluid repeat basic metabolic profile tomorrow For above-mentioned chronic medical problems patient will resume and continued on home medications
[2017-09-26 12:09] LABS: Glucose,Whole Blood 160 mg/dL (75-99)
[2017-09-26] MEDS: ACETAMINOPHEN TAB 325 MG TAB PO PRN (13:35)
[2017-09-26 17:24] LABS: Glucose,Whole Blood 209 mg/dL (75-99)
[2017-09-26 20:02] LABS: Glucose,Whole Blood 177 mg/dL (75-99)
[2017-09-26] MEDS: OLANZapine 10 MG TAB PO SCH (21:29)
[2017-09-26] MEDS ORDERED: cefTRIAXone IN SWFI 1,000 MG/10 ML SYRINGE IVP SCH (23:00)
[2017-09-26 23:34] LABS: Basophils % (A) 0 %; Eosinophils % (A) 0 %; HCT 31.5 % (34.0-46.0); HGB 9.9 gm/dL (11.4-16.0); Lymphocytes # (A) 0.6 k/uL (1.0-4.8); Lymphocytes % (A) 13 %; MCH 26.5 pg (25.0-35.0); MCHC 31.6 g/dL (31.0-37.0); MCV 83.7 fL (80.0-100.0); Mean Platelet Volume 6.5; Monocytes # (A) 0.2 k/uL (0-1.0); Monocytes % (A) 4 %; Neutrophils # (A) 3.9 k/uL (1.3-7.7); Neutrophils % (A) 81 %; Platelet Count 169 k/uL (150-450); RBC 3.76 m/uL (3.80-5.40); RDW 14.9 % (11.5-15.5); WBC 4.8 k/uL (3.8-10.6)
[2017-09-27] MEDS: ACETAMINOPHEN TAB 325 MG TAB PO PRN ×2 (00:10→08:29)
[2017-09-27 06:44] LABS: Glucose,Whole Blood 104 mg/dL (75-99)
[2017-09-27] MEDS: INSULIN ASPART 100 UNIT/ML 1 ML 10 ML VIAL SQ SCH ×4 (08:18→21:45)
[2017-09-27] MEDS: glipiZIDE 5 MG TAB PO SCH ×2 (08:28→18:02)
[2017-09-27] MEDS: DULoxetine HCL 60 MG CAPSULE.DR PO SCH (08:29)
[2017-09-27] MEDS: PANTOPRAZOLE 40 MG TABLET PO SCH ×2 (08:29→18:02)
[2017-09-27] MEDS: FAMOTIDINE 20 MG TAB PO SCH ×2 (08:29→21:40)
[2017-09-27] MEDS: FENOFIBRATE 160 MG TAB PO SCH (08:29)
[2017-09-27] MEDS: busPIRone HCl 10 MG TAB PO SCH ×2 (08:29→21:39)
[2017-09-27] MEDS: MAGNESIUM OXIDE 400 MG TAB PO SCH (08:29)
[2017-09-27] MEDS: CARBIDOPA-LEVODOPA 25-100 MG 1 EACH TAB PO SCH ×2 (08:29→21:40)
[2017-09-27 11:16] LABS: Glucose,Whole Blood 158 mg/dL (75-99)
[2017-09-27] MEDS: SODIUM CHLORIDE 0.9% 1,000 ML IV SCH ×2 (12:20→15:14)
--- NOTE | 2017-09-27 15:04 | CONS ---
CONSULTATION Mrs. Paul is a 61-year-old female who presented to the hospital with multiple falls. The patient resides in extended care facility. She was febrile on presentation and was diagnosed with a urinary tract infection. She has fallen, but had no syncope. She feels weak and unsteady. Cardiology consultation was requested because of tachycardia. The patient denies any symptoms of chest discomfort. According to her, her breathing is stable. She denies any syncope. She has some palpitation. No clear PND. No orthopnea. She denies any prior cardiac history. Her coronary risk factors are positive for diabetes, hyperlipidemia. No hypertension or smoking. MEDICATION: Her medications includes Zyprexa, Glucotrol, Ventolin, BuSpar, Cymbalta, vitamin D, Sinemet, and Prilosec. REVIEW OF SYSTEMS: RESPIRATORY SYSTEM: She has no recent wheezing. No cough. No obstructive lung disease. GI SYSTEM: No recent GI bleeding. No peptic ulcer disease. SYSTEM: She has symptoms of urinary tract infection. NERVOUS SYSTEM: No history of seizure. PHYSICAL EXAMINATION: She is a 61-year-old female, alert, no apparent distress. Blood pressure 116/60 with a heart in 90s. HEAD: Normocephalic. EYES: Sclerae anicteric. NECK: Good upstroke. No bruit. No venous jugular distention. LUNGS: Clear to auscultation. HEART: Regular rate and rhythm. S1, S2. No S3 with systolic ejection murmur heard at the base. No diastolic murmur. No rub. ABDOMEN: Soft, nontender. EXTREMITIES: No edema. LAB DATA: BUN and creatinine 24 and 1.2, hemoglobin of 10.9. Troponin less than 0.012. EKG reveals sinus mechanism with sinus tachycardia, nonspecific ST-T wave changes. Patient was febrile on admission. Her chest x-ray shows no acute changes. IMPRESSION: 1. Urinary tract infection. 2. Tachycardia with sinus tachycardia related to her infectious process. No evidence to suggest any malignant arrhythmia. 3. Diabetes. 4. Hyperlipidemia. RECOMMENDATION: From the cardiac standpoint, she is stable. She had an echocardiogram performed in August of this year that revealed a preserved ventricular size systolic function. I see no indication for any further cardiac workup at this time. We will see her on an as- needed basis. Please feel free to call us for any questions. Thank you for this consult. MMODL / IJN: [id number] /
--- NOTE | 2017-09-27 15:23 | P.PN ---
Subjective Patient was reviewed to her urinary tract infection because of altered mental status although urine cultures are negative I do not believe patient has UTI Rocephin will be discontinued. Patient mental status improved but patient has a tachycardia. To be sinus tachycardia will obtain a TSH, d-dimer of d-dimer is positive CT angiogram pulmonary embolism. If all the workup is negative including echocardiogram patient will be started on symptomatically treatment with metoprolol and possibility of discharge tomorrow Constitutional: Denied any fatigue denied any fever. Cardio vascular: denied any chest pain, palpitations Gastrointestinal denied any nausea vomiting Pulmonary: Denied any shortness of breath cough Neurologic denied any new focal deficits Objective - Vital Signs Vital signs: Vital Signs Temp 98.4 F 09/27/17 07:30 Pulse 98 09/27/17 08:30 Resp 18 09/27/17 07:30 BP 116/69 09/27/17 07:30 Pulse Ox 99 09/27/17 07:30 Intake & Output 09/26/17 09/27/17 09/27/17 18:59 06:59 18:59 Intake Total 800 700 Output Total 1 Balance 800 699 Intake: Intake, IV Titration 800 700 Amount Sodium Chloride 0.9% 1, 800 700 000 ml @ 100 mls/hr IV . Q10H [facility] Rx#:[id number] Output: Urine/Stool Mix 1 Other: Voiding Method Bedpan Incontinent Diaper Diaper Incontinent Incontinent # Voids 1 1 2 # Bowel Movements 1 2 - Exam PHYSICAL EXAMINATION: GENERAL: The patient is alert and oriented x2-3, not in any acute distress. Well developed, well nourished. HEENT: Pupils are round and equally reacting to light. EOMI. No scleral icterus. No conjunctival pallor. Normocephalic, atraumatic. No pharyngeal erythema. No thyromegaly. CARDIOVASCULAR: S1 and S2 present. No murmurs, rubs, or gallops. PULMONARY: Chest is clear to auscultation, no wheezing or crackles. ABDOMEN: Soft, nontender, nondistended, normoactive bowel sounds. No palpable organomegaly. MUSCULOSKELETAL: No joint swelling or deformity. EXTREMITIES: No cyanosis, clubbing, or pedal edema. NEUROLOGICAL: Gross neurological examination did not reveal any focal deficits. SKIN: No rashes. - Labs CBC & Chem 7: 09/26/17 23:18 09/25/17 18:46 Labs: Abnormal Lab Results - Last 24 Hours (Table) 09/26/17 09/26/17 09/26/17 Range/Units 17:22 20:00 23:18 RBC 3.76 L (3.80-5.40) m/uL Hgb 9.9 L (11.4-16.0) gm/dL Hct 31.5 L (34.0-46.0) % Lymphocytes # 0.6 L (1.0-4.8) k/uL D-Dimer (<0.60) mg/L FEU POC Glucose (mg/dL) 209 H 177 H (75-99) mg/dL 09/27/17 09/27/17 09/27/17 Range/Units 06:42 11:14 14:41 RBC (3.80-5.40) m/uL Hgb (11.4-16.0) gm/dL Hct (34.0-46.0) % Lymphocytes # (1.0-4.8) k/uL D-Dimer 1.60 H (<0.60) mg/L FEU POC Glucose (mg/dL) 104 H 158 H (75-99) mg/dL Microbiology - Last 24 Hours (Table) 09/25/17 18:46 Urine Culture - Final Urine,Catheterized 09/25/17 18:46 Blood Culture - Preliminary Blood No Growth after 24 hours Assessment and Plan Plan: -Toxic encephalopathy: Possibly of urinary tract infection and sepsis. Patient is on Rocephin which will be continued awaiting urine cultures. -Sepsis possibly secondary to urinary tract infection -Parkinson's patient is on carbidopa levodopa -Type 2 diabetes mellitus -Gastroesophageal reflux disease -Asthma without any acute exacerbation -Anxiety and depression -Acute renal failure: Mild secondary to intravascular we'll obtain repeat basic metabolic profile before I can get a CAT scan of the chest rule out pulmonary embolism For above-mentioned chronic medical problems patient will resume and continued on home medications
[2017-09-27 16:59] LABS: Potassium 3.4 mmol/L (3.5-5.1)
[2017-09-27 17:34] LABS: Glucose,Whole Blood 100 mg/dL (75-99)
[2017-09-27 20:00] LABS: Glucose,Whole Blood 96 mg/dL (75-99)
[2017-09-27] MEDS: OLANZapine 10 MG TAB PO SCH (21:40)
[2017-09-28] MEDS: ACETAMINOPHEN TAB 325 MG TAB PO PRN ×3 (00:13→21:04)
[2017-09-28] MEDS: SODIUM CHLORIDE 0.9% 1,000 ML IV SCH ×2 (01:06→21:04)
[2017-09-28 07:01] LABS: Glucose,Whole Blood 69 mg/dL (75-99)
[2017-09-28] MEDS: INSULIN ASPART 100 UNIT/ML 1 ML 10 ML VIAL SQ SCH ×4 (07:09→21:22)
[2017-09-28 07:25] LABS: Glucose,Whole Blood 67 mg/dL (75-99)
[2017-09-28 07:30] LABS: Basophils % (A) 0 %; Eosinophils % (A) 0 %; HCT 31.8 % (34.0-46.0); Hypochromasia Slight; Lymphocytes # (A) 0.9 k/uL (1.0-4.8); Lymphocytes % (A) 19 %; MCH 26.4 pg (25.0-35.0); MCHC 31.4 g/dL (31.0-37.0); MCV 83.9 fL (80.0-100.0); Mean Platelet Volume 6.6; Monocytes # (A) 0.2 k/uL (0-1.0); Monocytes % (A) 3 %; Neutrophils # (A) 3.3 k/uL (1.3-7.7); Neutrophils % (A) 76 %; Platelet Count 207 k/uL (150-450); RBC 3.78 m/uL (3.80-5.40); RDW 15.1 % (11.5-15.5); WBC 4.4 k/uL (3.8-10.6)
[2017-09-28 07:40] LABS: Calcium 8.9 mg/dL (8.4-10.2); Potassium 3.6 mmol/L (3.5-5.1)
[2017-09-28 07:44] LABS: Glucose,Whole Blood 67 mg/dL (75-99)
[2017-09-28 08:01] LABS: Glucose,Whole Blood 75 mg/dL (75-99)
[2017-09-28] MEDS: glipiZIDE 5 MG TAB PO SCH ×2 (08:18→18:24)
[2017-09-28] MEDS: PANTOPRAZOLE 40 MG TABLET PO SCH ×2 (08:18→18:24)
[2017-09-28] MEDS: FENOFIBRATE 160 MG TAB PO SCH (08:51)
[2017-09-28] MEDS: MAGNESIUM OXIDE 400 MG TAB PO SCH (08:51)
[2017-09-28] MEDS: FAMOTIDINE 20 MG TAB PO SCH (08:51)
[2017-09-28] MEDS: DULoxetine HCL 60 MG CAPSULE.DR PO SCH (08:51)
[2017-09-28] MEDS: busPIRone HCl 10 MG TAB PO SCH ×2 (08:51→21:05)
[2017-09-28] MEDS: CARBIDOPA-LEVODOPA 25-100 MG 1 EACH TAB PO SCH ×2 (08:51→21:05)
[2017-09-28 08:57] LABS: Glucose,Whole Blood 158 mg/dL (75-99)
[2017-09-28 11:55] LABS: Glucose,Whole Blood 171 mg/dL (75-99)
--- NOTE | 2017-09-28 12:24 | P.DS ---
Providers Date of admission: 09/26/17 12:32 Attending physician: David Carr MD Consults: 09/26/17 22:51 Consult Physician Routine Consulting Provider: Jose Enrique Restrepo Consult Reason/Comments: Tachycardia Do you want consulting provider notified?: Yes Primary care physician: Stan Sanchez [facility] Course: Patient was reviewed to her urinary tract infection because of altered mental status although urine cultures are negative I do not believe patient has UTI Rocephin will be discontinued. Patient mental status improved but patient has a tachycardia. To be sinus tachycardia will obtain a TSH, d-dimer of d-dimer is positive CT angiogram pulmonary embolism. If all the workup is negative including echocardiogram patient will be started on symptomatically treatment with metoprolol and possibility of discharge tomorrow 09/28/2017 Obtaining PT and OT consultation at patient request subacute rehab patient was discharged to subacute rehab. Although patient wanted to go back to the place where she came in from. We will rule out pulmonary embolism with CT angiogram. Her creatinine has come down patient will be discharged on 12.5 metoprolol twice a day for sinus tachycardia TSH within within normal limits echocardiogram was also within normal limits although I do not have the results available at this time. PHYSICAL EXAMINATION: GENERAL: The patient is alert and oriented x2-3, not in any acute distress. Well developed, well nourished. HEENT: Pupils are round and equally reacting to light. EOMI. No scleral icterus. No conjunctival pallor. Normocephalic, atraumatic. No pharyngeal erythema. No thyromegaly. CARDIOVASCULAR: S1 and S2 present. No murmurs, rubs, or gallops. PULMONARY: Chest is clear to auscultation, no wheezing or crackles. ABDOMEN: Soft, nontender, nondistended, normoactive bowel sounds. No palpable organomegaly. MUSCULOSKELETAL: No joint swelling or deformity. EXTREMITIES: No cyanosis, clubbing, or pedal edema. NEUROLOGICAL: Gross neurological examination did not reveal any focal deficits. SKIN: No rashes. 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 I do not believe patient has toxic encephalopathy or urinary tract infection -Patient UTI ruled out, antibiotics were discontinued -Parkinson's patient is on carbidopa levodopa -Type 2 diabetes mellitus -Gastroesophageal reflux disease -Asthma without any acute exacerbation -Anxiety and depression -Acute renal failure: Prerenal azotemia improved with IV fluids. Sinus tachycardia further evaluation as mentioned above follow workup is negative patient will be discharged on metoprolol 12.5 twice a day Patient Condition at Discharge: Stable Plan - Discharge Summary Discharge Rx Participant: No New Discharge Prescriptions: New metFORMIN HCL [Glucophage] 500 mg PO BID #60 tab Metoprolol Tartrate [Lopressor] 12.5 mg PO BID #60 dose Discontinued glipiZIDE [Glucotrol] 10 mg PO BID glipiZIDE [Glucotrol] 5 mg PO AC-BID #60 tab No Action DULoxetine HCL [Cymbalta] 60 mg PO DAILY Fenofibrate Nanocrystallized [Fenofibrate] 145 mg PO DAILY busPIRone HCL [Buspar] 30 mg PO BID Carbidopa-Levodopa 25-100 mg [Sinemet 25-100 mg] 1 tab PO Q12H OLANZapine [ZyPREXA] 10 mg PO HS Ergocalciferol (Vitamin D2) [Vitamin D2] 50,000 unit PO MO Albuterol Nebulized [Ventolin Nebulized] 3 ml INHALATION RT-DAILY PRN PRN Reason: Shortness Of Breath Ranitidine HCl 150 mg PO BID Magnesium Oxide 400 mg PO DAILY Omeprazole [PriLOSEC] 20 mg PO BID Discharge Medication List DULoxetine HCL [Cymbalta] 60 mg PO DAILY 10/11/16 [History] Fenofibrate Nanocrystallized [Fenofibrate] 145 mg PO DAILY 10/11/16 [History] busPIRone HCL [Buspar] 30 mg PO BID 10/11/16 [History] Carbidopa-Levodopa 25-100 mg [Sinemet 25-100 mg] 1 tab PO Q12H 02/26/17 [History ] OLANZapine [ZyPREXA] 10 mg PO HS 03/02/17 [History] Albuterol Nebulized [Ventolin Nebulized] 3 ml INHALATION RT-DAILY PRN 09/03/17 [ History] Ergocalciferol (Vitamin D2) [Vitamin D2] 50,000 unit PO MO 09/03/17 [History] Magnesium Oxide 400 mg PO DAILY 09/03/17 [History] Omeprazole [PriLOSEC] 20 mg PO BID 09/03/17 [History] Ranitidine HCl 150 mg PO BID 09/03/17 [History] Metoprolol Tartrate [Lopressor] 12.5 mg PO BID #60 dose 09/28/17 [Rx] metFORMIN HCL [Glucophage] 500 mg PO BID #60 tab 09/28/17 [Rx] Follow up Appointment(s)/Referral(s): Estevan Pierce MD [Primary Care Provider] - 10/05/17 2:50 pm Discharge Disposition: TRANSFER TO SNF/ECF
--- NOTE | 2017-09-28 13:33 | CT ---
CT CHEST FOR PULMONARY EMBOLISM. EXAMINATION TYPE: CT angio chest DATE OF EXAM: 09/28/2017 INDICATION: PE CT DLP: 255.5 mGycm, Automated exposure control for dose reduction was used. CONTRAST: Patient injected with 100 mL of Isovue 370. COMPARISON: None TECHNIQUE: CT of the chest is performed on a spiral scan at 2 mm thick sections. Study is performed with intravenous contrast timed for evaluation for pulmonary embolism. This will limit additional po rtions of the evaluation. 3-D MIP images reconstructed by the technologist are reviewed on the compu ter in the coronal and sagittal planes. FINDINGS: No persistent filling defects are evident to suggest an acute pulmonary embolism. No mediastinal or hilar adenopathy enlarged by CT criteria is evident. The ascending aorta diameter at the level of the main pulmonary artery is 3.0 cm. The main pulmonary artery diameter at the bifur cation is 2.1 cm. Lung windows are clear. Limited CT section through the upper abdomen are unremarkable. IMPRESSIONS: 1. No acute pulmonary embolism.
[2017-09-28 18:23] LABS: Glucose,Whole Blood 132 mg/dL (75-99)
[2017-09-28 20:54] LABS: Glucose,Whole Blood 150 mg/dL (75-99)
[2017-09-28] MEDS: OLANZapine 10 MG TAB PO SCH (21:05)
[2017-09-29] MEDS: SODIUM CHLORIDE 0.9% 1,000 ML IV SCH ×2 (03:47→13:33)
[2017-09-29 07:22] LABS: Glucose,Whole Blood 77 mg/dL (75-99)
[2017-09-29] MEDS: FENOFIBRATE 160 MG TAB PO SCH (07:34)
[2017-09-29] MEDS: DULoxetine HCL 60 MG CAPSULE.DR PO SCH (07:34)
[2017-09-29] MEDS: CARBIDOPA-LEVODOPA 25-100 MG 1 EACH TAB PO SCH ×2 (07:34→20:40)
[2017-09-29] MEDS: PANTOPRAZOLE 40 MG TABLET PO SCH ×2 (07:34→17:44)
[2017-09-29] MEDS: busPIRone HCl 10 MG TAB PO SCH ×2 (07:35→20:41)
[2017-09-29] MEDS: MAGNESIUM OXIDE 400 MG TAB PO SCH (07:35)
[2017-09-29] MEDS: INSULIN ASPART 100 UNIT/ML 1 ML 10 ML VIAL SQ SCH ×4 (07:39→20:41)
[2017-09-29] MEDS: glipiZIDE 5 MG TAB PO SCH ×2 (08:30→12:14)
[2017-09-29 11:13] LABS: Glucose,Whole Blood 142 mg/dL (75-99)
[2017-09-29] MEDS: METOPROLOL TARTRATE 25 MG TAB PO SCH ×2 (14:06→20:41)
--- NOTE | 2017-09-29 14:43 | XR ---
EXAMINATION TYPE: XR abdomen 2V DATE OF EXAM: 09/29/2017 COMPARISON: NONE HISTORY: Pain TECHNIQUE: Single supine KUB image of the abdomen is obtained FINDINGS: Small bowel demonstrates no evidence for dilatation or air fluid levels. Gas and fecal material is seen in non-distended colon. No convincing evidence for pneumoperitoneum. No unusual calcifications. The lung bases are clear. The osseous structures are intact. IMPRESSION: 1. Overall nonobstructive bowel gas pattern.
--- NOTE | 2017-09-29 15:00 | P.PN ---
Subjective Patient was reviewed to her urinary tract infection because of altered mental status although urine cultures are negative I do not believe patient has UTI Rocephin will be discontinued. Patient mental status improved but patient has a tachycardia. To be sinus tachycardia will obtain a TSH, d-dimer of d-dimer is positive CT angiogram pulmonary embolism. If all the workup is negative including echocardiogram patient will be started on symptomatically treatment with metoprolol and possibility of discharge tomorrow 09/29/2017 Discharge the patient yesterday and are not going because of prior authorization issue today patient is having some nausea vomiting probably mild gastritis patient will be started on Zofran patient is already on Protonix is to continue will obtain abdominal x-rays make sure patient does not have any bowel obstruction patient although does have good bowel sounds. Patient remains tachycardic because of which I'll start her on metoprolol watch her overnight possibility of discharge tomorrow Constitutional: Denied any fatigue denied any fever. Cardio vascular: denied any chest pain, palpitations Gastrointestinal as mentioned in HPI Pulmonary: Denied any shortness of breath cough Neurologic denied any new focal deficits Objective - Vital Signs Vital signs: Vital Signs Temp 97.9 F 09/29/17 07:18 Pulse 137 H 09/29/17 14:10 Resp 18 09/29/17 07:30 BP 131/78 09/29/17 14:10 Pulse Ox 98 09/29/17 00:05 Intake & Output 09/28/17 09/29/17 09/29/17 18:59 06:59 18:59 Intake Total 800 1200 800 Output Total 200 Balance 800 1200 600 Intake: Intake, IV Titration 800 1200 800 Amount Sodium Chloride 0.9% 1, 800 1200 800 000 ml @ 100 mls/hr IV . Q10H [facility] Rx#:[id number] Output: Emesis 200 Other: Voiding Method Diaper Toilet Incontinent # Voids 2 1 # Bowel Movements 1 - Exam PHYSICAL EXAMINATION: GENERAL: The patient is alert and oriented x2-3, not in any acute distress. Well developed, well nourished. HEENT: Pupils are round and equally reacting to light. EOMI. No scleral icterus. No conjunctival pallor. Normocephalic, atraumatic. No pharyngeal erythema. No thyromegaly. CARDIOVASCULAR: S1 and S2 present. No murmurs, rubs, or gallops. PULMONARY: Chest is clear to auscultation, no wheezing or crackles. Patient is tachycardic sinus tachycardia ABDOMEN: Soft, nontender, nondistended, normoactive bowel sounds. No palpable organomegaly. MUSCULOSKELETAL: No joint swelling or deformity. EXTREMITIES: No cyanosis, clubbing, or pedal edema. NEUROLOGICAL: Gross neurological examination did not reveal any focal deficits. SKIN: No rashes. - Labs CBC & Chem 7: 09/28/17 06:29 09/28/17 06:29 Labs: Abnormal Lab Results - Last 24 Hours (Table) 09/28/17 09/28/17 09/29/17 Range/Units 18:21 20:48 11:10 POC Glucose (mg/dL) 132 H 150 H 142 H (75-99) mg/dL Microbiology - Last 24 Hours (Table) 09/25/17 18:46 Blood Culture - Preliminary Blood No Growth after 72 hours Assessment and Plan Plan: -Rule out urinary tract infection: Discontinued Rocephin -Sinus tachycardia: Work up negative rule out pulmonary embolism TSH within normal limits symptomatically treatment with beta renuka -Parkinson's patient is on carbidopa levodopa -Type 2 diabetes mellitus -Gastroesophageal reflux disease -Asthma without any acute exacerbation -Anxiety and depression -Acute renal failure: Improved now -Nausea vomiting probably due to gastritis will obtain abdominal imaging Zofran as needed for nausea and vomiting and Protonix IV.
[2017-09-29 17:28] LABS: Glucose,Whole Blood 184 mg/dL (75-99)
[2017-09-29 20:00] LABS: Glucose,Whole Blood 159 mg/dL (75-99)
[2017-09-29] MEDS: ACETAMINOPHEN TAB 325 MG TAB PO PRN (20:40)
[2017-09-29] MEDS: OLANZapine 10 MG TAB PO SCH (20:41)
[2017-09-30] MEDS: SODIUM CHLORIDE 0.9% 1,000 ML IV SCH ×2 (04:38→08:24)
[2017-09-30 06:51] LABS: Glucose,Whole Blood 138 mg/dL (75-99)
[2017-09-30] MEDS: INSULIN ASPART 100 UNIT/ML 1 ML 10 ML VIAL SQ SCH ×2 (07:48→11:29)
[2017-09-30] MEDS: glipiZIDE 5 MG TAB PO SCH (07:49)
[2017-09-30] MEDS: PANTOPRAZOLE 40 MG TABLET PO SCH (07:49)
[2017-09-30] MEDS: MAGNESIUM OXIDE 400 MG TAB PO SCH (08:24)
[2017-09-30] MEDS: DULoxetine HCL 60 MG CAPSULE.DR PO SCH (08:24)
[2017-09-30] MEDS: FENOFIBRATE 160 MG TAB PO SCH (08:24)
[2017-09-30] MEDS: CARBIDOPA-LEVODOPA 25-100 MG 1 EACH TAB PO SCH (08:24)
[2017-09-30] MEDS: METOPROLOL TARTRATE 25 MG TAB PO SCH (08:25)
[2017-09-30] MEDS: busPIRone HCl 10 MG TAB PO SCH (08:25)
[2017-09-30 11:08] LABS: Glucose,Whole Blood 121 mg/dL (75-99)
[2017-09-30] MEDS: ACETAMINOPHEN TAB 325 MG TAB PO PRN (14:35)
[2017-09-30 14:56] VITALS: BP 136/70; PULSE 81; RESP 16; TEMP 98.6
--- NOTE | 2017-09-30 15:05 | P.DS ---
Providers Date of admission: 09/26/17 12:32 Attending physician: David Carr MD Consults: 09/26/17 22:51 Consult Physician Routine Consulting Provider: Jose Enrique Restrepo Consult Reason/Comments: Tachycardia Do you want consulting provider notified?: Yes Primary care physician: Stan Sanchez [facility] Course: Patient was reviewed to her urinary tract infection because of altered mental status although urine cultures are negative I do not believe patient has UTI Rocephin will be discontinued. Patient mental status improved but patient has a tachycardia. To be sinus tachycardia will obtain a TSH, d-dimer of d-dimer is positive CT angiogram pulmonary embolism. If all the workup is negative including echocardiogram patient will be started on symptomatically treatment with metoprolol and possibility of discharge tomorrow 09/29/2017 Discharge the patient yesterday and are not going because of prior authorization issue today patient is having some nausea vomiting probably mild gastritis patient will be started on Zofran patient is already on Protonix is to continue will obtain abdominal x-rays make sure patient does not have any bowel obstruction patient although does have good bowel sounds. Patient remains tachycardic because of which I'll start her on metoprolol watch her overnight possibility of discharge tomorrow 09/30/2017 Patient is doing much better patient will be discharged today in stable medical condition to subacute rehabilitation. No nausea vomiting today PHYSICAL EXAMINATION: GENERAL: The patient is alert and oriented x2-3, not in any acute distress. Well developed, well nourished. HEENT: Pupils are round and equally reacting to light. EOMI. No scleral icterus. No conjunctival pallor. Normocephalic, atraumatic. No pharyngeal erythema. No thyromegaly. CARDIOVASCULAR: S1 and S2 present. No murmurs, rubs, or gallops. PULMONARY: Chest is clear to auscultation, no wheezing or crackles. Patient is tachycardic sinus tachycardia ABDOMEN: Soft, nontender, nondistended, normoactive bowel sounds. No palpable organomegaly. MUSCULOSKELETAL: No joint swelling or deformity. EXTREMITIES: No cyanosis, clubbing, or pedal edema. NEUROLOGICAL: Gross neurological examination did not reveal any focal deficits. SKIN: No rashes. Assessment and Plan Plan: -Rule out urinary tract infection: Discontinued Rocephin -Sinus tachycardia: Work up negative ruled out pulmonary embolism TSH within normal limits symptomatically treatment with beta renuka -Parkinson's patient is on carbidopa levodopa -Type 2 diabetes mellitus -Gastroesophageal reflux disease -Asthma without any acute exacerbation -Anxiety and depression -Acute renal failure: Improved now -Nausea vomiting probably due to gastritis will obtain abdominal imaging Zofran as needed for nausea and vomiting and Protonix IV. Patient Condition at Discharge: Stable Plan - Discharge Summary Discharge Rx Participant: No New Discharge Prescriptions: New metFORMIN HCL [Glucophage] 500 mg PO BID #60 tab Metoprolol Tartrate [Lopressor] 25 mg PO BID tab Continue DULoxetine HCL [Cymbalta] 60 mg PO DAILY Fenofibrate Nanocrystallized [Fenofibrate] 145 mg PO DAILY busPIRone HCL [Buspar] 30 mg PO BID Carbidopa-Levodopa 25-100 mg [Sinemet 25-100 mg] 1 tab PO Q12H OLANZapine [ZyPREXA] 10 mg PO HS Ergocalciferol (Vitamin D2) [Vitamin D2] 50,000 unit PO MO Albuterol Nebulized [Ventolin Nebulized] 3 ml INHALATION RT-DAILY PRN PRN Reason: Shortness Of Breath Magnesium Oxide 400 mg PO DAILY Omeprazole [PriLOSEC] 20 mg PO BID Discontinued glipiZIDE [Glucotrol] 10 mg PO BID Ranitidine HCl 150 mg PO BID glipiZIDE [Glucotrol] 5 mg PO AC-BID #60 tab Discharge Medication List DULoxetine HCL [Cymbalta] 60 mg PO DAILY 10/11/16 [History] Fenofibrate Nanocrystallized [Fenofibrate] 145 mg PO DAILY 10/11/16 [History] busPIRone HCL [Buspar] 30 mg PO BID 10/11/16 [History] Carbidopa-Levodopa 25-100 mg [Sinemet 25-100 mg] 1 tab PO Q12H 02/26/17 [History ] OLANZapine [ZyPREXA] 10 mg PO HS 03/02/17 [History] Albuterol Nebulized [Ventolin Nebulized] 3 ml INHALATION RT-DAILY PRN 09/03/17 [ History] Ergocalciferol (Vitamin D2) [Vitamin D2] 50,000 unit PO MO 09/03/17 [History] Magnesium Oxide 400 mg PO DAILY 09/03/17 [History] Omeprazole [PriLOSEC] 20 mg PO BID 09/03/17 [History] metFORMIN HCL [Glucophage] 500 mg PO BID #60 tab 09/28/17 [Rx] Metoprolol Tartrate [Lopressor] 25 mg PO BID tab 09/30/17 [Rx] Follow up Appointment(s)/Referral(s): Estevan Pierce MD [Primary Care Provider] - 10/05/17 2:50 pm Patient Instructions/Handouts: Urinary Traction Infection in Older Adults (DC) Discharge Disposition: TRANSFER TO SNF/ECF
== END 2017-09-30 15:05 | DRG 308 ==
LOC: EC 18:00 → 3SUR 21:04 → OBSVTOIN 09-26 12:32 → 3SUR 09-28 07:24
PROVIDERS: ADMIT Internal Medicine; ATTEND Internal Medicine
DX: R00.0 Tachycardia, unspecified (principal); G92 Toxic encephalopathy; N17.9 Acute kidney failure, unspecified; N39.0 Urinary tract infection, site not specified; E11.9 Type 2 diabetes mellitus without complications; E78.5 Hyperlipidemia, unspecified; F32.9 Major depressive disorder, single episode, unspecified; F41.9 Anxiety disorder, unspecified; G20 Parkinson's disease; G25.81 Restless legs syndrome; J45.909 Unspecified asthma, uncomplicated; K21.9 Gastro-esophageal reflux disease without esophagitis; K29.70 Gastritis, unspecified, without bleeding; R29.6 Repeated falls; Z79.4 Long term (current) use of insulin; Z79.899 Other long term (current) drug therapy; Z82.49 Family history of ischemic heart disease and other diseases of the circulatory system; Z87.891 Personal history of nicotine dependence; S80.212A Abrasion, left knee, initial encounter; S80.211A Abrasion, right knee, initial encounter; W18.30XA Fall on same level, unspecified, initial encounter; Z81.1 Family history of alcohol abuse and dependence; M19.90 Unspecified osteoarthritis, unspecified site; M54.2 Cervicalgia; Z88.1 Allergy status to other antibiotic agents; Z88.5 Allergy status to narcotic agent; Z88.0 Allergy status to penicillin; Z87.01 Personal history of pneumonia (recurrent); Z89.422 Acquired absence of other left toe(s); G56.00 Carpal tunnel syndrome, unspecified upper limb; Z60.2 Problems related to living alone; R53.1 Weakness
CPT/HCPCS: 36415; 70450; 71046; 71275; 74019; 80048; 80053; 81001; 82550; 82553; 83036; 83605; 84443; 84484; 85025; 85379; 85610; 85730; 87040; 87086; 93005; 94640; 94760; 96374; 99285

== ENCOUNTER 2018-01-06 23:04 | Inpatient (IN) | payer OTHER ==
--- NOTE | 2018-01-07 00:03 | ED ---
Extremity Problem HPI - General Stated complaint: Fall,leg pain Time Seen by Provider: 01/06/18 23:36 Source: patient, EMS Mode of arrival: EMS Limitations: altered mental status - History of Present Illness Initial comments: Nirmala is a 62-year-old female is brought to the ED today via EMS for evaluation of right-sided hip pain. Patient reports that earlier in the afternoon she was not using her cane to walk and she slipped and fell. She immediately felt pain in her right hip. She was evaluated at her facility, x-rays were obtained which revealed no acute fracture however she has continued to have significant pain in her hip and been unable to walk therefore decision was made to transfer her to our facility for further evaluation. Patient has no history of injury or surgery to this hip. She reports that at baseline she walks with a cane and requires some assistance. She reports that the fall was mechanical in nature secondary to her not using her cane and having a slip and fall. Denies any other injuries. - Related Data Home Medications Medication Instructions Recorded Confirmed DULoxetine HCL [Cymbalta] 60 mg PO DAILY 10/11/16 01/06/18 Fenofibrate Nanocrystallized 145 mg PO DAILY 10/11/16 01/06/18 [Fenofibrate] busPIRone HCL [Buspar] 30 mg PO BID 10/11/16 01/06/18 Carbidopa-Levodopa 25-100 mg 1 tab PO Q12H 02/26/17 01/06/18 [Sinemet 25-100 mg] Albuterol Nebulized [Ventolin 3 ml INHALATION RT-DAILY PRN 09/03/17 01/06/18 Nebulized] Ergocalciferol (Vitamin D2) 50,000 unit PO TU 09/03/17 01/06/18 [Vitamin D2] Magnesium Oxide 400 mg PO DAILY 09/03/17 01/06/18 Omeprazole [PriLOSEC] 20 mg PO BID 09/03/17 01/06/18 Acetaminophen [Tylenol] 650 mg PO Q8H PRN 01/06/18 01/06/18 Glimepiride [Amaryl] 1 mg PO DAILY 01/06/18 01/06/18 Multivitamins, Thera [Multivitamin 1 tab PO DAILY 01/06/18 01/06/18 (formulary)] OLANZapine [ZyPREXA] 7.5 mg PO HS 10/31/18 10/31/18 metFORMIN HCL [Glucophage] 1,000 mg PO DAILY 01/06/18 01/06/18 metFORMIN HCL [Glucophage] 500 mg PO HS 01/06/18 01/06/18 Previous Rx's Medication Instructions Recorded Metoprolol Tartrate [Lopressor] 25 mg PO BID tab 09/30/17 Allergies Allergy/AdvReac Type Severity Reaction Status Date / Time amoxicillin Allergy Unknown Verified 01/06/18 23:32 azithromycin Allergy Unknown Verified 01/06/18 23:32 codeine Allergy Unknown Verified 01/06/18 23:32 erythromycin base Allergy Unknown Verified 01/06/18 23:32 [Erythromycin Base] Review of Systems ROS Statement: Those systems with pertinent positive or pertinent negative responses have been documented in the HPI. ROS Other: All systems not noted in ROS Statement are negative. 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 Past Psychological History: Anxiety, Depression Smoking Status: Former smoker Past Alcohol Use History: None Reported, Rare Past Drug Use History: None Reported - Past Family History Father Family Medical History: Coronary Artery Disease (CAD), Myocardial Infarction (LA ) Additional Family Medical History / Comment(s): Father of a LA at the age of 70yrs. Mother Family Medical History: Liver Disease Additional Family Medical History / Comment(s): Mother from alcoholic liver cirrhosis in her early 70s. General Exam - General Exam Comments Initial Comments: Physical Exam GENERAL: Chronically ill-appearing, appears older than stated age HENT: Normocephalic, Atraumatic. EYES: PERRL, EOMI PULMONARY: Unlabored respirations. CARDIOVASCULAR: RRR Extremities are warm and well perfused Strong DP and PT pulses bilaterally ABDOMEN: Soft and nontender with normal bowel sounds. SKIN: Pale Abrasion to right knee : Deferred NEUROLOGIC: Patient is alert. Moving all extremities spontaneously MUSCULOSKELETAL: pain to right hip, right leg appears shortened PSYCHIATRIC: Normal psychiatric evaluation. Limitations: no limitations Limitations: altered mental status Course Vital Signs 01/06/18 23:20 Temperature 98.8 F Pulse Rate 97 Respiratory 18 Rate Blood Pressure 147/87 O2 Sat by Pulse 95 Oximetry Medical Decision Making - Medical Decision Making Patient care was discussed with nursing staff at care facility prior to arrival , patient had a mechanical fall was evaluated at that facility x-rays were indeterminate decision was made to transfer the patient here for further imaging Upon arrival patient reports pain only with movement, the right leg appears shortened and not rotated. A computed tomography scan was ordered. Computed tomography scan revealed a comminuted intertrochanteric fracture Labs ordered She care was discussed with orthopedics environmental laboratory technician Dr. Joshi who accepts the admission with a consult to medicine for medical management of the patient's multiple medical comorbidities. Disposition Clinical Impression: Intertrochanteric fracture of right hip, [facility] Disposition: ADMITTED IP TO THIS HOSP Referrals: Mark Mendoza DO [Primary Care Provider] - 1-2 days
--- NOTE | 2018-01-07 01:09 | CT ---
EXAMINATION TYPE: CT hip RT wo con DATE OF EXAM: 01/07/2018 COMPARISON: None HISTORY: pain in right hip CT DLP: 466.8 mGycm Automated exposure control for dose reduction was used. FINDINGS: There is comminuted intratrochanteric fracture of the right femur. There is mild coxa vera deformity. There is no dislocation. Hip joint space is fairly normal. There are degenerative cysts in the aceta bulum. I see no focal bone destruction. IMPRESSION: COMMINUTED INTERTROCHANTERIC FRACTURE RIGHT FEMUR. FRAGMENTS ARE DISPLACED UP TO 1 CM.
[2018-01-07] MEDS ORDERED: NALOXONE 0.4 MG/ML 1 ML VIAL IV PRN (02:24)
[2018-01-07] MEDS ORDERED: ALBUTEROL NEBULIZED 2.5 MG/3 ML INHALATION PRN (02:27)
[2018-01-07 03:32] LABS: Basophils % (A) 0 %; Eosinophils % (A) 0 %; HCT 34.7 % (34.0-46.0); HGB 11.2 gm/dL (11.4-16.0); Lymphocytes # (A) 0.8 k/uL (1.0-4.8); Lymphocytes % (A) 10 %; MCH 27.8 pg (25.0-35.0); MCHC 32.3 g/dL (31.0-37.0); MCV 85.9 fL (80.0-100.0); Mean Platelet Volume 6.7; Monocytes # (A) 0.4 k/uL (0-1.0); Monocytes % (A) 5 %; Neutrophils # (A) 7.3 k/uL (1.3-7.7); Neutrophils % (A) 84 %; Platelet Count 137 k/uL (150-450); RBC 4.04 m/uL (3.80-5.40); RDW 15.1 % (11.5-15.5); WBC 8.6 k/uL (3.8-10.6)
[2018-01-07 03:44] LABS: Albumin 3.9 g/dL (3.5-5.0); Calcium 10.8 mg/dL (8.4-10.2); Total Bilirubin 0.4 mg/dL (0.2-1.3); Total Protein 7.1 g/dL (6.3-8.2)
[2018-01-07 03:47] LABS: INR 1.1 (<1.2); Partial Thromboplastin Time 22.1 sec (22.0-30.0); Prothrombin Time 10.7 sec (9.0-12.0)
[2018-01-07 04:09] LABS: Creatine Kinase 30 U/L (30-135)
[2018-01-07 04:22] LABS: Creatine Kinase MB 0.6 ng/mL (0.0-2.4); Troponin I <0.012 ng/mL (0.000-0.034)
[2018-01-07] MEDS: ACETAMINOPHEN TAB 325 MG TAB PO PRN ×3 (04:28→20:13)
[2018-01-07 04:44] LABS: Glucose,Whole Blood 268 mg/dL (75-99)
[2018-01-07] MEDS: CARBIDOPA-LEVODOPA 25-100 MG 1 EACH TAB PO SCH ×2 (06:12→15:13)
[2018-01-07 07:19] LABS: Glucose,Whole Blood 307 mg/dL (75-99)
--- NOTE | 2018-01-07 08:50 | P.HPOR ---
History of Present Illness H&P Date: 01/08/18 Chief Complaint: Right hip pain This is a 62-year-old female admitted through the emergency department with history of fall. She sustained injury to her right hip. The patient has history of dementia and resides at [facility]. On exam and x-ray in the emergency department she is found to have an intertrochanteric fracture of the right hip. She is admitted to our service for surgical intervention and care. 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 Past Psychological History: Anxiety, Depression Additional Psychological History / Comment(s): Pt resides alone. She has a cat. She no longer drives, she uses the bus. She manages her own medications. She goes to [facility] and sees Radha Darling. She states her mental health is stable at this time. She states in the past she has had suicidal thoughts but not for a long time now. Smoking Status: Former smoker Past Alcohol Use History: None Reported, Rare Additional Past Alcohol Use History / Comment(s): Pt smoked for one year, 1979- 1980. Past Drug Use History: None Reported - Past Family History Father Family Medical History: Coronary Artery Disease (CAD), Myocardial Infarction (DC ) Additional Family Medical History / Comment(s): Father of a DC at the age of 70yrs. Mother Family Medical History: Liver Disease Additional Family Medical History / Comment(s): Mother from alcoholic liver cirrhosis in her early 70s. Medications and Allergies Home Medications Medication Instructions Recorded Confirmed Type DULoxetine HCL [Cymbalta] 60 mg PO DAILY 10/11/16 01/06/18 History Fenofibrate Nanocrystallized 145 mg PO DAILY 10/11/16 01/06/18 History [Fenofibrate] busPIRone HCL [Buspar] 30 mg PO BID 10/11/16 01/06/18 History Carbidopa-Levodopa 25-100 mg 1 tab PO Q12H 02/26/17 01/06/18 History [Sinemet 25-100 mg] Albuterol Nebulized [Ventolin 3 ml INHALATION RT-DAILY PRN 09/03/17 01/06/18 History Nebulized] Ergocalciferol (Vitamin D2) 50,000 unit PO TU 09/03/17 01/06/18 History [Vitamin D2] Magnesium Oxide 400 mg PO DAILY 09/03/17 01/06/18 History Omeprazole [PriLOSEC] 20 mg PO BID 09/03/17 01/06/18 History Metoprolol Tartrate [Lopressor] 25 mg PO BID tab 09/30/17 01/06/18 Rx Acetaminophen [Tylenol] 650 mg PO Q8H PRN 01/06/18 01/06/18 History Glimepiride [Amaryl] 1 mg PO DAILY 01/06/18 01/06/18 History Multivitamins, Thera [Multivitamin 1 tab PO DAILY 01/06/18 01/06/18 History (formulary)] OLANZapine [ZyPREXA] 7.5 mg PO HS 01/06/18 01/06/18 History metFORMIN HCL [Glucophage] 1,000 mg PO DAILY 01/06/18 01/06/18 History metFORMIN HCL [Glucophage] 500 mg PO HS 01/06/18 01/06/18 History Allergies Allergy/AdvReac Type Severity Reaction Status Date / Time amoxicillin Allergy Unknown Verified 01/06/18 23:32 azithromycin Allergy Unknown Verified 01/06/18 23:32 codeine Allergy Unknown Verified 01/06/18 23:32 erythromycin base Allergy Unknown Verified 01/06/18 23:32 [Erythromycin Base] Physical Examination This is a confused 62-year-old female in no acute distress. She is difficult to awaken. She will open her eyes but gives no verbal response. Exam of the head neck reveal no obvious deformity. There is no obvious pain with palpation about cervical spine. Exam of the upper extremities is unremarkable. No obvious signs of trauma. Exam of the lower extremities reveals no deformity. She is lying in bed with both hips externally rotated. There is pain with motion of the right lower extremity. Pedal pulses are +2/4. Neurovascular status to the lower extremities is intact. Results Computed tomography scan of the right hip reveals mildly displaced, slightly comminuted intertrochanteric fracture. - Labs Labs: Abnormal Lab Results - Last 24 Hours (Table) 01/07/18 01/07/18 01/07/18 Range/Units 03:02 03:02 04:31 Hgb 11.2 L (11.4-16.0) gm/dL Plt Count 137 L (150-450) k/uL Lymphocytes # 0.8 L (1.0-4.8) k/uL Chloride 108 H (98-107) mmol/L BUN 37 H (7-17) mg/dL Creatinine 1.06 H (0.52-1.04) mg/dL Glucose 273 H (74-99) mg/dL POC Glucose (mg/dL) 268 H (75-99) mg/dL Calcium 10.8 H (8.4-10.2) mg/dL 01/07/18 Range/Units 07:07 Hgb (11.4-16.0) gm/dL Plt Count (150-450) k/uL Lymphocytes # (1.0-4.8) k/uL Chloride (98-107) mmol/L BUN (7-17) mg/dL Creatinine (0.52-1.04) mg/dL Glucose (74-99) mg/dL POC Glucose (mg/dL) 307 H (75-99) mg/dL Calcium (8.4-10.2) mg/dL H & H 01/07/18 Range/Units 03:02 Hgb 11.2 L (11.4-16.0) gm/dL Hct 34.7 (34.0-46.0) % Coagulation 01/07/18 Range/Units 03:02 INR 1.1 (<1.2) Result Diagrams: 01/07/18 03:02 01/07/18 03:02 Assessment and Plan (1) Diabetes Current Visit: Yes Status: Acute Code(s): E11.9 - TYPE 2 DIABETES MELLITUS WITHOUT COMPLICATIONS SNOMED Code(s): 25254005 (2) GERD (gastroesophageal reflux disease) Current Visit: Yes Status: Acute Code(s): K21.9 - GASTRO-ESOPHAGEAL REFLUX DISEASE WITHOUT ESOPHAGITIS SNOMED Code(s): 170684209 (3) Dementia Current Visit: Yes Status: Acute Code(s): F03.90 - UNSPECIFIED DEMENTIA WITHOUT BEHAVIORAL DISTURBANCE SNOMED Code(s): 18536472 (4) Fall at intermediate Current Visit: Yes Status: Acute Code(s): W19.XXXA - UNSPECIFIED FALL, INITIAL ENCOUNTER; Y92.129 - UNSP PLACE IN LONGTERM PLACE SNOMED Code(s ): 083275207 (5) Intertrochanteric fracture of right hip Current Visit: Yes Status: Acute Code(s): S72.141A - DISPLACED INTERTROCHANTERIC FRACTURE OF RIGHT FEMUR, INIT SNOMED Code(s): 593011620 Plan: The clinical and radiographic findings are discussed with the nursing staff. There is no family present at bedside. It is recommended she undergo closed reduction with insertion of intertrochanteric nail of the right hip. We're planning surgery for tomorrow if cleared medically.
[2018-01-07] MEDS: PANTOPRAZOLE 40 MG TABLET PO SCH ×2 (10:13→20:13)
[2018-01-07] MEDS: DULoxetine HCL 60 MG CAPSULE.DR PO SCH (10:13)
[2018-01-07] MEDS: busPIRone HCl 10 MG TAB PO SCH ×2 (10:13→20:13)
[2018-01-07] MEDS: METOPROLOL TARTRATE 25 MG TAB PO SCH ×2 (10:13→20:13)
[2018-01-07] MEDS: INSULIN ASPART 100 UNIT/ML 1 ML 10 ML VIAL SQ SCH ×4 (10:14→20:21)
[2018-01-07 11:57] LABS: Glucose,Whole Blood 182 mg/dL (75-99)
[2018-01-07] MEDS ORDERED: hydrALAZINE HCL 25 MG TAB PO PRN (15:29)
--- NOTE | 2018-01-07 15:31 | P.HPIM ---
History of Present Illness This is a 62 years old female with past medical history of dementia from snf, asthma, diabetes mellitus, anemia. Presents because of fall and right hip fracture. When I saw the patient she was lying in bed not in distress her pain mild on the right hip area, the right hip is shortened and externally rotated. An informed the patient about her current medical condition. Review of Systems CONSTITUTIONAL: No fever, no malaise, no fatigue. HEENT: No recent visual problems or hearing problems. Denied any sore throat. CARDIOVASCULAR: No orthopnea, PND, no palpitations, no syncope. PULMONARY: No shortness of breath, no cough, no hemoptysis. GASTROINTESTINAL: No diarrhea, no nausea, no vomiting, no abdominal pain. Normoactive bowel sounds. NEUROLOGICAL: No headaches, no weakness, no numbness. HEMATOLOGICAL: Denies any bleeding or petechiae. GENITOURINARY: Denies any burning micturition, frequency, or urgency. MUSCULOSKELETAL/RHEUMATOLOGICAL: Denies any joint pain, swelling, or any muscle pain. ENDOCRINE: Denies any polyuria or polydipsia. 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 Past Psychological History: Anxiety, Depression Additional Psychological History / Comment(s): Pt resides alone. She has a cat. She no longer drives, she uses the bus. She manages her own medications. She goes to [facility] and sees Radha Darling. She states her mental health is stable at this time. She states in the past she has had suicidal thoughts but not for a long time now. Smoking Status: Former smoker Past Alcohol Use History: None Reported, Rare Additional Past Alcohol Use History / Comment(s): Pt smoked for one year, 1979- 1980. Past Drug Use History: None Reported - Past Family History Father Family Medical History: Coronary Artery Disease (CAD), Myocardial Infarction (NH ) Additional Family Medical History / Comment(s): Father of a NH at the age of 70yrs. Mother Family Medical History: Liver Disease Additional Family Medical History / Comment(s): Mother from alcoholic liver cirrhosis in her early 70s. Medications and Allergies Home Medications Medication Instructions Recorded Confirmed Type DULoxetine HCL [Cymbalta] 60 mg PO DAILY 10/11/16 01/06/18 History Fenofibrate Nanocrystallized 145 mg PO DAILY 10/11/16 01/06/18 History [Fenofibrate] busPIRone HCL [Buspar] 30 mg PO BID 10/11/16 01/06/18 History Carbidopa-Levodopa 25-100 mg 1 tab PO Q12H 02/26/17 01/06/18 History [Sinemet 25-100 mg] Albuterol Nebulized [Ventolin 3 ml INHALATION RT-DAILY PRN 09/03/17 01/06/18 History Nebulized] Ergocalciferol (Vitamin D2) 50,000 unit PO TU 09/03/17 01/06/18 History [Vitamin D2] Magnesium Oxide 400 mg PO DAILY 09/03/17 01/06/18 History Omeprazole [PriLOSEC] 20 mg PO BID 09/03/17 01/06/18 History Metoprolol Tartrate [Lopressor] 25 mg PO BID tab 09/30/17 01/06/18 Rx Acetaminophen [Tylenol] 650 mg PO Q8H PRN 01/06/18 01/06/18 History Glimepiride [Amaryl] 1 mg PO DAILY 01/06/18 01/06/18 History Multivitamins, Thera [Multivitamin 1 tab PO DAILY 01/06/18 01/06/18 History (formulary)] OLANZapine [ZyPREXA] 7.5 mg PO HS 01/06/18 01/06/18 History metFORMIN HCL [Glucophage] 1,000 mg PO DAILY 01/06/18 01/06/18 History metFORMIN HCL [Glucophage] 500 mg PO HS 01/06/18 01/06/18 History Allergies Allergy/AdvReac Type Severity Reaction Status Date / Time amoxicillin Allergy Unknown Verified 01/06/18 23:32 azithromycin Allergy Unknown Verified 01/06/18 23:32 codeine Allergy Unknown Verified 01/06/18 23:32 erythromycin base Allergy Unknown Verified 01/06/18 23:32 [Erythromycin Base] Physical Exam Vitals: Vital Signs Temp Pulse Pulse Resp BP BP Pulse Ox 01/07/18 09:24 102 H 01/07/18 08:15 98.9 F 102 H 18 124/82 97 01/07/18 08:13 102 H 18 01/07/18 04:31 98.4 F 100 16 163/82 98 01/07/18 03:49 98 16 128/65 01/06/18 23:20 98.8 F 97 18 147/87 95 Intake and Output 01/06/18 01/07/18 01/07/18 22:59 06:59 14:59 Output Total 800 450 Balance -800 -450 Output: Urine 800 450 Other: Voiding Method Indwelling Catheter Weight 65.771 kg GENERAL: The patient is alert and oriented x3, to place and person, and partially to time as she knows only the year but not the month and date, not in any acute distress. Well developed, well nourished. HEENT: Pupils are round and equally reacting to light. EOMI. No scleral icterus. No conjunctival pallor. Normocephalic, atraumatic. No pharyngeal erythema. No thyromegaly. CARDIOVASCULAR: S1 and S2 present. No murmurs, rubs, or gallops. PULMONARY: Chest is clear to auscultation, no wheezing or crackles. ABDOMEN: Soft, nontender, nondistended, normoactive bowel sounds. No palpable organomegaly. MUSCULOSKELETAL: No joint swelling or deformity. -EXTREMITIES: No cyanosis, clubbing, or pedal edema. Right lower extremity is shortened and externally rotated NEUROLOGICAL: Gross neurological examination did not reveal any focal deficits. SKIN: No rashes. Results CBC & Chem 7: 01/07/18 03:02 01/07/18 03:02 Labs: Abnormal Lab Results - Last 24 Hours (Table) 01/07/18 01/07/18 01/07/18 Range/Units 03:02 03:02 04:31 Hgb 11.2 L (11.4-16.0) gm/dL Plt Count 137 L (150-450) k/uL Lymphocytes # 0.8 L (1.0-4.8) k/uL Chloride 108 H (98-107) mmol/L BUN 37 H (7-17) mg/dL Creatinine 1.06 H (0.52-1.04) mg/dL Glucose 273 H (74-99) mg/dL POC Glucose (mg/dL) 268 H (75-99) mg/dL Calcium 10.8 H (8.4-10.2) mg/dL 01/07/18 01/07/18 Range/Units 07:07 11:45 Hgb (11.4-16.0) gm/dL Plt Count (150-450) k/uL Lymphocytes # (1.0-4.8) k/uL Chloride (98-107) mmol/L BUN (7-17) mg/dL Creatinine (0.52-1.04) mg/dL Glucose (74-99) mg/dL POC Glucose (mg/dL) 307 H 182 H (75-99) mg/dL Calcium (8.4-10.2) mg/dL Thrombosis Risk Factor Assmnt - Choose All That Apply Other Risk Factors: Yes Each Risk Factor Represents 2 Points: Age 61-74 years Each Risk Factor Represents 5 Points: Hip, pelvis, or leg fracture (< 1 month) Thrombosis Risk Factor Assessment Total Risk Factor Score: 7 Thrombosis Risk Factor Assessment Level: High Risk Assessment and Plan Assessment: Right comminuted hip fracture fall Dementia, mostly Alzheimer dementia History of asthma Diabetes mellitus, on insulin U History of anemia, Plan: This is a pleasant 62 years old female who presents because of hip fracture. Orthopedic R following the patient surgical management. We have been consulted for medical management. Labs and medication were resumed. Continue same treatment. Continue with symptomatic treatment. Resume home medication. However hold metformin and put the patient on sliding scale, also with holding metoprolol and patient for surgery Monitor lytes and vitals. DVT and GI prophylaxis. Further recommendationsof the clinical course of the patient DVT prophylaxis: as per orthopedic primary team GI Prophylaxis: Protonix PT/OT: Pending Prognosis is guarded
[2018-01-07 17:10] LABS: Glucose,Whole Blood 180 mg/dL (75-99)
[2018-01-07] MEDS: OLANZapine 2.5 MG TAB PO SCH (20:12)
[2018-01-07 20:28] LABS: Glucose,Whole Blood 168 mg/dL (75-99)
[2018-01-07] MEDS ORDERED: KETOROLAC 30 MG/ML 1 ML VIAL IVP STA (23:39)
[2018-01-08] MEDS: CARBIDOPA-LEVODOPA 25-100 MG 1 EACH TAB PO SCH ×2 (03:57→16:18)
[2018-01-08] MEDS: ACETAMINOPHEN TAB 325 MG TAB PO PRN (03:57)
[2018-01-08 07:42] LABS: Glucose,Whole Blood 188 mg/dL (75-99)
[2018-01-08] MEDS: INSULIN ASPART 100 UNIT/ML 1 ML 10 ML VIAL SQ SCH ×4 (07:53→23:45)
[2018-01-08] MEDS: busPIRone HCl 10 MG TAB PO SCH ×2 (07:53→23:46)
[2018-01-08] MEDS: DULoxetine HCL 60 MG CAPSULE.DR PO SCH (07:53)
[2018-01-08] MEDS: PANTOPRAZOLE 40 MG TABLET PO SCH ×2 (07:54→23:45)
[2018-01-08] MEDS: METOPROLOL TARTRATE 25 MG TAB PO SCH ×2 (07:54→19:35)
[2018-01-08] MEDS ORDERED: IV FLUID CONTINUATION 1,000 ML IV ONE (09:01)
[2018-01-08] MEDS ORDERED: MIDAZOLAM 2 MG/2 ML VIAL ONE (10:01)
[2018-01-08] MEDS ORDERED: PHENYLEPHRINE-0.9% NACL SYG 1 MG/10 ML SYRINGE ONE (10:01)
[2018-01-08] MEDS ORDERED: fentaNYL (PF) 50 MCG/ML 2 ML AMP ONE (10:01)
[2018-01-08] MEDS ORDERED: KETAMINE 10 MG/ML 20 ML VIAL ONE (10:01)
[2018-01-08] MEDS ORDERED: ceFAZolin 1,000 MG VIAL IVPB ONE ×2 (10:20→11:33)
[2018-01-08] MEDS ORDERED: ceFAZolin 1,000 MG in SODIUM CHLORIDE 0.9% 1,000 ML IRRIGATION ONE (10:31)
--- NOTE | 2018-01-08 11:33 | P.OP ---
Date of Procedure: 01/08/18 Procedure(s) Performed: PREOPERATIVE DIAGNOSIS: Right hip intertrochanteric fracture. POSTOPERATIVE DIAGNOSIS: Right hip intertrochanteric fracture. OPERATION: Right hip intertrochanteric fracture closed reduction and intramedullary nailing using Synthes IT nail. TICKET TAKER FERRYBOAT: Allyson Houston (Assistance with: Patient positioning, retraction, exposure, hemostasis, fixation, irrigation, closure, dressing) ANESTHESIA: Spinal ESTIMATED BLOOD LOSS: 200 mL. COMPLICATIONS: None OPERATIVE FINDINGS: See dictation INDICATIONS: Nirmala is a 62-year-old female with a history of right intertrochanteric fracture. The patient has severe dementia. The patient presents to the operating room today for closed reduction and intramedullary nailing. Discussion with her legal guardian regarding the risks of surgery has been undertaken in detail as being inclusive of but not limited to: Bleeding, infection, scarring, discomfort, blood vessel and/or nerve damage, need for further surgery, malunion, nonunion, gait disturbance including persistent or permanent limp, limb length inequality, arthritis, hardware failure, blood clot , pulmonary embolism, , and other risks. The consent form has been signed by her legal guardian. PROCEDURE: After appropriate consent was obtained, the patient was taken to the operating room and placed in supine position. Spinal anesthetic was administered and after confirmation of adequate anesthesia, the patient was carefully placed in the supine position on the operating room table in the fracture table. The patient was placed up against a well-padded perineal post. Care was taken to make sure about that all pressure points were adequately padded. The affected leg was placed in boot traction and the unaffected leg was placed in a well leg causey. The unaffected leg had severe contracture, and very poor range of motion, making loosening or occult and the operation itself bit more difficult normal in terms of positioning of C-arm. Using gentle longitudinal distraction as well as adduction and internal rotation , the fracture was reduced as assessed by AP and lateral C-arm imaging. Once a satisfactory reduction had been obtained, the thigh was prepped and draped in the usual aseptic fashion using ChloraPrep. Ioban drape was used for the case and the patient received intravenous antibiotics prior to incision. Timeout was called, confirming patient identity, side, procedure, and administration of antibiotics. The incision was then created with a #10 blade just proximal to the greater trochanter laterally. It was carried down through skin into the subcutaneous tissues and through fascia. Hemostasis was obtained using electrocautery. The tip of the greater trochanter was palpated and a guide pin was placed at the tip and directed into the femoral shaft as assessed with C-arm imaging. Once optimal pin position had been obtained, a 17 mm reamer was used over the guide pin to create a path for the IT nail. IT nail selected was assembled to the insertion jig on the back table and bushings were checked for accuracy. The nail was then inserted using gentle mallet taps until it was fully deployed. The amount of rotation of the implant was assessed based on the amount of anteversion of the femoral neck. This was rotated to match the patient's femoral neck anteversion and the helical blade guide was placed through the insertion jig and through an incision on the lateral side of the thigh more distal than the first. Once this guide was placed against the lateral cortex of the femur, a guide pin was drilled into the central region of the femoral head and neck as based on AP and lateral C-arm imaging. Once optimal pin position had been obtained, the guidewire was measured and appropriately sized helical blade was selected. The path for the helical blade was prepared using a tapered reamer. The helical blade was then inserted using gentle mallet taps along the guidewire until it was fully deployed. There was no displacement of the fracture during this step. The anti-rotation screw was locked down and the insertion apparatus for the helical blade was removed. The guide pin was then removed. Traction was then removed from the leg and the distal interlock was placed through the jig using standard technique. Finally, the insertion jig for the nail was removed and final C-arm images were taken and saved in both AP and lateral planes. The final x-rays showed satisfactory positioning of the implant and good reduction of the fracture. The top of the nail was plugged with a small quantity of bone wax and the incisions were then thoroughly irrigated with normal saline. Final hemostasis was obtained using electrocautery and closure of the fascia was performed using 0-Vicryl suture. 2-0 Vicryl suture was used in the subcutaneous tissues and standard skin closure was performed. Sterile dressing was then applied and the patient was carefully removed from the fracture table frame and placed onto the stretcher. The patient tolerated the procedure well. There were no complications and above noted blood loss. The patient was then subsequently transferred to recovery room in stable condition. Sponge and needle counts were correct.
[2018-01-08] MEDS ORDERED: HYDROcodone/APAP 5-325MG 1 EACH TAB PO PRN ×2 (11:56)
[2018-01-08] MEDS ORDERED: NALOXONE 0.4 MG/ML 1 ML VIAL IV PRN (11:56)
[2018-01-08] MEDS ORDERED: MAGNESIUM HYDROXIDE 2,400 MG/10 ML CUP PO PRN (11:56)
[2018-01-08] MEDS ORDERED: HYDROmorphone 1 MG/ML 1 ML SYRINGE IVP PRN ×2 (11:56)
[2018-01-08] MEDS ORDERED: HYDROmorphone 1 MG/ML 1 ML SYRINGE IVP ONE (12:26)
--- NOTE | 2018-01-08 12:39 | XR ---
EXAMINATION TYPE: XR Hip Complete RT, FL guidance operating room DATE OF EXAM: 01/08/2018 CLINICAL HISTORY: Open reduction internal fixation of the right hip TECHNIQUE: Fluoroscopy. COMPARISON: None. FINDINGS/IMPRESSION: Fluoroscopic guidance was provided during procedure performed by Dr. Joshi. A total of 45 seconds of fluoroscopic time was utilized during the procedure and 2 spot images was acqu ired during open reduction internal fixation of the right hip.
[2018-01-08] MEDS: HYDROmorphone 1 MG/ML 1 ML SYRINGE IVP PRN ×2 (13:25→20:34)
[2018-01-08 15:58] LABS: Basophils % (A) 0 %; Eosinophils % (A) 0 %; HCT 31.5 % (34.0-46.0); HGB 9.8 gm/dL (11.4-16.0); Hypochromasia Moderate; Lymphocytes # (A) 1.3 k/uL (1.0-4.8); Lymphocytes % (A) 11 %; MCH 27.9 pg (25.0-35.0); Mean Platelet Volume 6.9; Monocytes # (A) 0.7 k/uL (0-1.0); Monocytes % (A) 6 %; Neutrophils # (A) 9.7 k/uL (1.3-7.7); Neutrophils % (A) 82 %; Platelet Count 153 k/uL (150-450); RDW 15.2 % (11.5-15.5); WBC 11.8 k/uL (3.8-10.6)
[2018-01-08 17:03] LABS: Glucose,Whole Blood 254 mg/dL (75-99)
[2018-01-08] MEDS ORDERED: INSULIN ASPART 100 UNIT/ML 1 ML 10 ML VIAL SQ ONE (18:49)
--- NOTE | 2018-01-08 18:58 | P.PN ---
Subjective Progress Note Date: 01/08/18 Progress note being dictated for Dr. Clay Interval history:This is a 62 years old female with past medical history of dementia from intermediate, asthma, diabetes mellitus, anemia. Presents because of fall and right hip fracture. When I saw the patient she was lying in bed not in distress her pain mild on the right hip area, the right hip is shortened and externally rotated. An informed the patient about her current medical condition. Review of Systems CONSTITUTIONAL: No fever, no malaise, no fatigue. HEENT: No recent visual problems or hearing problems. Denied any sore throat. CARDIOVASCULAR: No orthopnea, PND, no palpitations, no syncope. PULMONARY: No shortness of breath, no cough, no hemoptysis. GASTROINTESTINAL: No diarrhea, no nausea, no vomiting, no abdominal pain. Normoactive bowel sounds. NEUROLOGICAL: No headaches, no weakness, no numbness. HEMATOLOGICAL: Denies any bleeding or petechiae. GENITOURINARY: Denies any burning micturition, frequency, or urgency. MUSCULOSKELETAL/RHEUMATOLOGICAL: Denies any joint pain, swelling, or any muscle pain. ENDOCRINE: Denies any polyuria or polydipsia. 01/08/2018 patient has just returned from orthopedic surgery, tolerated procedure well. Pain controlled.Minimal EBL reported. Mild tachycardia, patient did not receive beta renuka prior to surgery and is receiving now. Denies chest pain, palpitations, or increased shortness of breath. Objective - Vital Signs Vital signs: Vital Signs Temp 97.9 F 01/08/18 13:00 Pulse 119 H 01/08/18 15:00 Resp 16 01/08/18 13:00 BP 127/79 01/08/18 15:00 Pulse Ox 89 L 01/08/18 13:00 Intake & Output 01/07/18 01/08/18 01/08/18 18:59 06:59 18:59 Intake Total 250 120 601 Output Total 950 1625 550 Balance -700 -1505 51 Intake: IV 601 Oral 250 120 Output: Urine 950 1625 350 Estimated Blood Loss 200 Other: Voiding Method Indwelling Catheter Indwelling Catheter Indwelling Catheter # Bowel Movements 0 - Exam GENERAL: The patient is alert and oriented x1-2, no acute distress HEENT: Pupils are round and equally reacting to light. EOMI. No scleral icterus. No conjunctival pallor. Normocephalic, atraumatic. No pharyngeal erythema. No thyromegaly. CARDIOVASCULAR: S1 and S2 present. No murmurs, rubs, or gallops. PULMONARY: Chest is clear to auscultation, no wheezing or crackles. ABDOMEN: Soft, nontender, nondistended, normoactive bowel sounds. No palpable organomegaly. -EXTREMITIES: No cyanosis, clubbing, or pedal edema. Status post surgery of Right lower extremity-defer to surgery NEUROLOGICAL: Gross neurological examination did not reveal any focal deficits. SKIN: No rashes. - Labs CBC & Chem 7: 01/08/18 15:44 01/07/18 03:02 Labs: Abnormal Lab Results - Last 24 Hours (Table) 01/07/18 01/08/18 01/08/18 Range/Units 20:16 07:20 15:44 WBC 11.8 H (3.8-10.6) k/uL RBC 3.50 L (3.80-5.40) m/uL Hgb 9.8 L (11.4-16.0) gm/dL Hct 31.5 L (34.0-46.0) % Neutrophils # 9.7 H (1.3-7.7) k/uL POC Glucose (mg/dL) 168 H 188 H (75-99) mg/dL 01/08/18 Range/Units 16:51 WBC (3.8-10.6) k/uL RBC (3.80-5.40) m/uL Hgb (11.4-16.0) gm/dL Hct (34.0-46.0) % Neutrophils # (1.3-7.7) k/uL POC Glucose (mg/dL) 254 H (75-99) mg/dL Assessment and Plan Assessment: Right comminuted hip fracture, status post right hip intertrochanteric fracture closed reduction and intramedullary nailing fall Dementia, mostly Alzheimer dementia History of asthma Diabetes mellitus, on insulin U History of anemia, Plan: Continue on current medication regime ,monitoring and symptomatic treatment. Pain management, DVT prophylaxis as per orthopedic surgery. Aggressive pulmonary toileting. PT/OT. The impression and plan of care has been dictated as directed. : I performed a history and examination of this patient, discussed the same with the dictator. I agree with the dictator's note ,documented as a scribe. Any additional findings or plans will be noted.
[2018-01-08] MEDS ORDERED: IPRATROPIUM-ALBUTEROL 3 ML NEB INHALATION PRN ×2 (18:59)
[2018-01-08] MEDS: ceFAZolin IN SWFI 2 GM/20 ML SYRINGE IVP SCH (19:02)
[2018-01-08] MEDS: SODIUM CHLORIDE 0.9% 1,000 ML IV SCH (19:39)
[2018-01-08 20:46] LABS: Glucose,Whole Blood 288 mg/dL (75-99)
[2018-01-08] MEDS: SYMBICORT 160-4.5 MCG INHALER INHALATION SCH (20:54)
[2018-01-08] MEDS ORDERED: metFORMIN 500 MG TAB PO SCH (21:00)
[2018-01-08] MEDS ORDERED: TEMAZEPAM 15 MG CAP PO PRN (22:00)
[2018-01-08] MEDS ORDERED: METOPROLOL TARTRATE 25 MG TAB PO STA (22:18)
[2018-01-08] MEDS ORDERED: SODIUM CHLORIDE 0.9% 500 ML 500 ML IV ONE (22:19)
[2018-01-08 22:42] LABS: Basophils % (A) 0 %; Eosinophils % (A) 0 %; HCT 28.1 % (34.0-46.0); Hypochromasia Slight; Lymphocytes # (A) 1.1 k/uL (1.0-4.8); Lymphocytes % (A) 12 %; MCH 28.3 pg (25.0-35.0); MCHC 31.8 g/dL (31.0-37.0); MCV 88.9 fL (80.0-100.0); Mean Platelet Volume 6.8; Monocytes # (A) 0.6 k/uL (0-1.0); Monocytes % (A) 6 %; Neutrophils # (A) 6.9 k/uL (1.3-7.7); Neutrophils % (A) 79 %; Platelet Count 156 k/uL (150-450); RBC 3.16 m/uL (3.80-5.40); RDW 15.4 % (11.5-15.5); WBC 8.8 k/uL (3.8-10.6)
[2018-01-08 22:52] LABS: Calcium 10.2 mg/dL (8.4-10.2); Magnesium 1.9 mg/dL (1.6-2.3); Potassium 4.4 mmol/L (3.5-5.1)
[2018-01-08] MEDS: OLANZapine 2.5 MG TAB PO SCH (23:46)
[2018-01-08] MEDS: SENNOSIDES-DOCUSATE SODIUM 1 EACH TAB PO SCH (23:46)
[2018-01-08] MEDS: GLIMEPIRIDE 1 MG TAB PO SCH (23:47)
[2018-01-09] MEDS: ceFAZolin IN SWFI 2 GM/20 ML SYRINGE IVP SCH (03:58)
[2018-01-09] MEDS: CARBIDOPA-LEVODOPA 25-100 MG 1 EACH TAB PO SCH ×2 (03:58→17:52)
[2018-01-09 07:21] LABS: Glucose,Whole Blood 185 mg/dL (75-99)
[2018-01-09] MEDS ORDERED: metFORMIN 500 MG TAB PO SCH (07:30)
[2018-01-09 08:07] LABS: Basophils % (A) 0 %; Eosinophils % (A) 0 %; HCT 24.8 % (34.0-46.0); HGB 7.7 gm/dL (11.4-16.0); Hypochromasia Slight; Lymphocytes # (A) 1.3 k/uL (1.0-4.8); Lymphocytes % (A) 17 %; MCH 27.6 pg (25.0-35.0); MCHC 31.2 g/dL (31.0-37.0); MCV 88.5 fL (80.0-100.0); Mean Platelet Volume 7.1; Monocytes # (A) 0.5 k/uL (0-1.0); Monocytes % (A) 7 %; Neutrophils # (A) 5.5 k/uL (1.3-7.7); Neutrophils % (A) 74 %; Platelet Count 144 k/uL (150-450); RDW 15.5 % (11.5-15.5); WBC 7.5 k/uL (3.8-10.6)
[2018-01-09] MEDS: SODIUM CHLORIDE 0.9% 1,000 ML IV SCH ×2 (08:19→17:51)
[2018-01-09] MEDS: GLIMEPIRIDE 1 MG TAB PO SCH (08:19)
[2018-01-09] MEDS: DULoxetine HCL 60 MG CAPSULE.DR PO SCH (08:20)
[2018-01-09] MEDS: INSULIN ASPART 100 UNIT/ML 1 ML 10 ML VIAL SQ SCH ×4 (08:20→21:43)
[2018-01-09] MEDS: busPIRone HCl 10 MG TAB PO SCH ×2 (08:20→21:42)
[2018-01-09] MEDS: PANTOPRAZOLE 40 MG TABLET PO SCH ×2 (08:21→21:42)
[2018-01-09] MEDS: METOPROLOL TARTRATE 25 MG TAB PO SCH ×2 (08:21→21:42)
[2018-01-09] MEDS: SYMBICORT 160-4.5 MCG INHALER INHALATION SCH ×2 (08:23→20:12)
[2018-01-09 08:44] LABS: Calcium 9.6 mg/dL (8.4-10.2); Potassium 4.2 mmol/L (3.5-5.1)
--- NOTE | 2018-01-09 09:00 | P.PN ---
Subjective Progress Note Date: 01/09/18 This is a 62-year-old female who is status post ORIF of the right hip. This is postoperative day #1. Patient has a history dementia and is a poor historian. According to nursing staff the patient's blood pressure dropped last night and the A-team was called. Patient's blood pressure is better controlled this morning. Objective - Vital Signs Vital signs: Vital Signs Temp 99.2 F 01/09/18 01:12 Pulse 108 H 01/09/18 01:12 Resp 20 01/09/18 00:05 BP 105/70 01/09/18 01:12 Pulse Ox 100 01/09/18 01:12 Intake & Output 01/08/18 01/09/18 01/09/18 18:59 06:59 18:59 Intake Total 601 1715 236 Output Total 550 Balance 51 1715 236 Intake: IV 601 Intake, IV Titration 1425 Amount Sodium Chloride 0.9% 1, 925 000 ml @ 100 mls/hr IV . Q10H NATHALIE Rx#:[id number] Sodium Chloride 0.9% 500 500 ml 500 ml @ 999 mls/hr IV .Q31M ONE Rx#:[id number] Oral 290 236 Output: Urine 350 Estimated Blood Loss 200 Other: Voiding Method Indwelling Catheter Indwelling Catheter # Bowel Movements 0 - Exam On exam patient is lying comfortably in bed in no acute distress. Dressing is clean, dry and intact. There is minimal soft tissue swelling. Calf is soft and nontender to palpation. Neurovascular status and circulatory status are intact. - Labs CBC & Chem 7: 01/09/18 07:00 01/09/18 07:00 Labs: Abnormal Lab Results - Last 24 Hours (Table) 01/08/18 01/08/18 01/08/18 Range/Units 15:44 16:51 20:35 WBC 11.8 H (3.8-10.6) k/uL RBC 3.50 L (3.80-5.40) m/uL Hgb 9.8 L (11.4-16.0) gm/dL Hct 31.5 L (34.0-46.0) % Plt Count (150-450) k/uL Neutrophils # 9.7 H (1.3-7.7) k/uL Chloride (98-107) mmol/L Carbon Dioxide (22-30) mmol/L BUN (7-17) mg/dL Creatinine (0.52-1.04) mg/dL Glucose (74-99) mg/dL POC Glucose (mg/dL) 254 H 288 H (75-99) mg/dL 01/08/18 01/08/18 01/09/18 Range/Units 22:00 22:00 07:00 WBC (3.8-10.6) k/uL RBC 3.16 L 2.80 L (3.80-5.40) m/uL Hgb 9.0 L 7.7 L (11.4-16.0) gm/dL Hct 28.1 L 24.8 L (34.0-46.0) % Plt Count 144 L (150-450) k/uL Neutrophils # (1.3-7.7) k/uL Chloride 112 H (98-107) mmol/L Carbon Dioxide 20 L (22-30) mmol/L BUN 37 H (7-17) mg/dL Creatinine 1.32 H (0.52-1.04) mg/dL Glucose 245 H (74-99) mg/dL POC Glucose (mg/dL) (75-99) mg/dL 01/09/18 01/09/18 Range/Units 07:00 07:10 WBC (3.8-10.6) k/uL RBC (3.80-5.40) m/uL Hgb (11.4-16.0) gm/dL Hct (34.0-46.0) % Plt Count (150-450) k/uL Neutrophils # (1.3-7.7) k/uL Chloride 114 H (98-107) mmol/L Carbon Dioxide 21 L (22-30) mmol/L BUN 31 H (7-17) mg/dL Creatinine 1.12 H (0.52-1.04) mg/dL Glucose 177 H (74-99) mg/dL POC Glucose (mg/dL) 185 H (75-99) mg/dL Assessment and Plan (1) Dementia Current Visit: Yes Status: Acute Code(s): F03.90 - UNSPECIFIED DEMENTIA WITHOUT BEHAVIORAL DISTURBANCE SNOMED Code(s): 90742401 (2) Diabetes Current Visit: Yes Status: Acute Code(s): E11.9 - TYPE 2 DIABETES MELLITUS WITHOUT COMPLICATIONS SNOMED Code(s): 66187931 (3) [facility] Current Visit: Yes Status: Acute Code(s): W19.XXXA - UNSPECIFIED FALL, INITIAL ENCOUNTER; Y92.129 - UNSP PLACE IN MCC PLACE SNOMED Code(s ): 337239974 (4) Intertrochanteric fracture of right hip Current Visit: Yes Status: Acute Code(s): S72.141A - DISPLACED INTERTROCHANTERIC FRACTURE OF RIGHT FEMUR, INIT SNOMED Code(s): 035178941 Plan: Continue routine postop care. Toe-touch weightbearing to the right lower extremity. Continue antocoagulation. Daily dressing changes. Appreciate input from medicine. Anticipate discharge to [facility] Thursday.
[2018-01-09 11:52] LABS: Glucose,Whole Blood 211 mg/dL (75-99)
--- NOTE | 2018-01-09 14:20 | P.PN ---
Subjective interval history:This is a 62 years old female with past medical history of dementia from long-term, asthma, diabetes mellitus, anemia. Presents because of fall and right hip fracture. When I saw the patient she was lying in bed not in distress her pain mild on the right hip area, the right hip is shortened and externally rotated. An informed the patient about her current medical condition. 01/08/2018 patient has just returned from orthopedic surgery, tolerated procedure well. Pain controlled.Minimal EBL reported. Mild tachycardia, patient did not receive beta renuka prior to surgery and is receiving now. Denies chest pain, palpitations, or increased shortness of breath. 01/09/2018 Patient blood pressure dropped last night which improved with IV fluids disease secondary to opiate and ALLERGIES see a patient heart rate improved with beta renuka.patient is drowsy recommend to avoid opiate analgesia as much as we can. Constitutional: Denied any fatigue denied any fever. Cardio vascular: denied any chest pain, palpitations Gastrointestinal denied any nausea vomiting Pulmonary: Denied any shortness of breath cough Neurologic denied any new focal deficits Objective - Vital Signs Vital signs: Vital Signs Temp 98.3 F 01/09/18 08:00 Pulse 104 H 01/09/18 08:00 Resp 16 01/09/18 08:00 BP 113/70 01/09/18 08:00 Pulse Ox 99 01/09/18 08:00 Intake & Output 01/08/18 01/09/18 01/09/18 18:59 06:59 18:59 Intake Total 601 1715 236 Output Total 550 Balance 51 1715 236 Intake: IV 601 Intake, IV Titration 1425 Amount Sodium Chloride 0.9% 1, 925 000 ml @ 100 mls/hr IV . Q10H [facility] Rx#:[id number] Sodium Chloride 0.9% 500 500 ml 500 ml @ 999 mls/hr IV .Q31M [facility] Rx#:[id number] Oral 290 236 Output: Urine 350 Estimated Blood Loss 200 Other: Voiding Method Indwelling Catheter Indwelling Catheter Indwelling Catheter # Bowel Movements 0 - Exam GENERAL: The patient is drowsy and able to assess orientation, no acute distress HEENT: Pupils are round and equally reacting to light. EOMI. No scleral icterus. No conjunctival pallor. Normocephalic, atraumatic. No pharyngeal erythema. No thyromegaly. CARDIOVASCULAR: S1 and S2 present. No murmurs, rubs, or gallops. PULMONARY: Chest is clear to auscultation, no wheezing or crackles. ABDOMEN: Soft, nontender, nondistended, normoactive bowel sounds. No palpable organomegaly. -EXTREMITIES: No cyanosis, clubbing, or pedal edema. Status post surgery of Right lower extremity-defer to surgery NEUROLOGICAL: Gross neurological examination did not reveal any focal deficits. SKIN: No rashes. - Labs CBC & Chem 7: 01/09/18 07:00 01/09/18 07:00 Labs: Abnormal Lab Results - Last 24 Hours (Table) 01/08/18 01/08/18 01/08/18 Range/Units 15:44 16:51 20:35 WBC 11.8 H (3.8-10.6) k/uL RBC 3.50 L (3.80-5.40) m/uL Hgb 9.8 L (11.4-16.0) gm/dL Hct 31.5 L (34.0-46.0) % Plt Count (150-450) k/uL Neutrophils # 9.7 H (1.3-7.7) k/uL Chloride (98-107) mmol/L Carbon Dioxide (22-30) mmol/L BUN (7-17) mg/dL Creatinine (0.52-1.04) mg/dL Glucose (74-99) mg/dL POC Glucose (mg/dL) 254 H 288 H (75-99) mg/dL 01/08/18 01/08/18 01/09/18 Range/Units 22:00 22:00 07:00 WBC (3.8-10.6) k/uL RBC 3.16 L 2.80 L (3.80-5.40) m/uL Hgb 9.0 L 7.7 L (11.4-16.0) gm/dL Hct 28.1 L 24.8 L (34.0-46.0) % Plt Count 144 L (150-450) k/uL Neutrophils # (1.3-7.7) k/uL Chloride 112 H (98-107) mmol/L Carbon Dioxide 20 L (22-30) mmol/L BUN 37 H (7-17) mg/dL Creatinine 1.32 H (0.52-1.04) mg/dL Glucose 245 H (74-99) mg/dL POC Glucose (mg/dL) (75-99) mg/dL 01/09/18 01/09/18 01/09/18 Range/Units 07:00 07:10 11:40 WBC (3.8-10.6) k/uL RBC (3.80-5.40) m/uL Hgb (11.4-16.0) gm/dL Hct (34.0-46.0) % Plt Count (150-450) k/uL Neutrophils # (1.3-7.7) k/uL Chloride 114 H (98-107) mmol/L Carbon Dioxide 21 L (22-30) mmol/L BUN 31 H (7-17) mg/dL Creatinine 1.12 H (0.52-1.04) mg/dL Glucose 177 H (74-99) mg/dL POC Glucose (mg/dL) 185 H 211 H (75-99) mg/dL Assessment and Plan Plan: Right comminuted hip fracture, status post right hip intertrochanteric fracture closed reduction and intramedullary nailing fall: Patient related subacute rehabilitation placement. -Episode of hypotension improved with IV fluids secondary to opiates for pain Dementia, mostly Alzheimer dementia History of asthma Diabetes mellitus, on insulin History of anemia,
[2018-01-09 17:38] LABS: Glucose,Whole Blood 240 mg/dL (75-99)
[2018-01-09 20:34] LABS: Glucose,Whole Blood 230 mg/dL (75-99)
[2018-01-09] MEDS: SENNOSIDES-DOCUSATE SODIUM 1 EACH TAB PO SCH (21:42)
[2018-01-09] MEDS: OLANZapine 2.5 MG TAB PO SCH (21:42)
[2018-01-09] MEDS: ACETAMINOPHEN TAB 325 MG TAB PO PRN (21:47)
[2018-01-10 07:08] LABS: Glucose,Whole Blood 164 mg/dL (75-99)
[2018-01-10] MEDS: SYMBICORT 160-4.5 MCG INHALER INHALATION SCH ×2 (07:28→19:11)
[2018-01-10] MEDS: SODIUM CHLORIDE 0.9% 1,000 ML IV SCH ×3 (08:29→21:16)
[2018-01-10] MEDS: INSULIN ASPART 100 UNIT/ML 1 ML 10 ML VIAL SQ SCH ×4 (08:47→21:17)
[2018-01-10] MEDS: PANTOPRAZOLE 40 MG TABLET PO SCH ×2 (08:48→21:17)
[2018-01-10] MEDS: CARBIDOPA-LEVODOPA 25-100 MG 1 EACH TAB PO SCH ×2 (08:48→21:16)
[2018-01-10] MEDS: DULoxetine HCL 60 MG CAPSULE.DR PO SCH (08:48)
[2018-01-10] MEDS: busPIRone HCl 10 MG TAB PO SCH ×2 (08:48→21:16)
[2018-01-10] MEDS: GLIMEPIRIDE 1 MG TAB PO SCH (08:49)
[2018-01-10] MEDS: METOPROLOL TARTRATE 25 MG TAB PO SCH ×2 (08:55→21:17)
--- NOTE | 2018-01-10 09:54 | P.PN ---
Subjective Progress Note Date: 01/10/18 This is a 62-year-old female who is status post ORIF of the right hip. This is postoperative day #2. Patient has a history dementia and is a poor historian. No acute events overnight. Objective - Vital Signs Vital signs: Vital Signs Temp 98.4 F 01/10/18 08:30 Pulse 111 H 01/10/18 08:30 Resp 16 01/10/18 08:30 BP 144/66 01/10/18 08:30 Pulse Ox 100 01/10/18 08:30 Intake & Output 01/09/18 01/10/18 01/10/18 19:59 06:59 18:59 Intake Total 136 Output Total Balance 136 Intake: Oral 136 Output: Urine Uretheral (Stark) Other: Voiding Method Indwelling Catheter - Exam On exam patient is lying comfortably in bed in no acute distress. Dressing is clean, dry and intact. There is minimal soft tissue swelling. Calf is soft and nontender to palpation. Neurovascular status and circulatory status are intact. - Labs CBC & Chem 7: 01/09/18 07:00 01/09/18 07:00 Labs: Abnormal Lab Results - Last 24 Hours (Table) 01/09/18 01/09/18 01/09/18 Range/Units 11:40 17:26 20:22 POC Glucose (mg/dL) 211 H 240 H 230 H (75-99) mg/dL 01/10/18 Range/Units 06:57 POC Glucose (mg/dL) 164 H (75-99) mg/dL Assessment and Plan (1) Dementia Current Visit: Yes Status: Acute Code(s): F03.90 - UNSPECIFIED DEMENTIA WITHOUT BEHAVIORAL DISTURBANCE SNOMED Code(s): 87273560 (2) Diabetes Current Visit: Yes Status: Acute Code(s): E11.9 - TYPE 2 DIABETES MELLITUS WITHOUT COMPLICATIONS SNOMED Code(s): 54187240 (3) Fall at long-term Current Visit: Yes Status: Acute Code(s): W19.XXXA - UNSPECIFIED FALL, INITIAL ENCOUNTER; Y92.129 - UNSP PLACE IN SENIOR CARE PLACE SNOMED Code(s ): 657036160 (4) Intertrochanteric fracture of right hip Current Visit: Yes Status: Acute Code(s): S72.141A - DISPLACED INTERTROCHANTERIC FRACTURE OF RIGHT FEMUR, INIT SNOMED Code(s): 616645528 Plan: Continue routine postop care. Toe-touch weightbearing to the right lower extremity. Continue antocoagulation. Daily dressing changes. Appreciate input from medicine. Anticipate discharge to [facility] Thursday.
--- NOTE | 2018-01-10 11:41 | P.PN ---
Subjective interval history:This is a 62 years old female with past medical history of dementia from care home, asthma, diabetes mellitus, anemia. Presents because of fall and right hip fracture. When I saw the patient she was lying in bed not in distress her pain mild on the right hip area, the right hip is shortened and externally rotated. An informed the patient about her current medical condition. 01/08/2018 patient has just returned from orthopedic surgery, tolerated procedure well. Pain controlled. Mild tachycardia, patient did not receive beta renuka prior to surgery and is receiving now. Denies chest pain, palpitations, or increased shortness of breath. 01/09/2018 Patient blood pressure dropped last night which improved with IV fluids disease secondary to opiate and ALLERGIES see a patient heart rate improved with beta renuka.patient is drowsy recommend to avoid opiate analgesia as much as we can. 01/10/2018 Distal excessively sleepy. Patient doesn't have any history of atrial fibrillation or DVT. Anti-correlation management as per orthopedic surgery. Constitutional: Denied any fatigue denied any fever. Cardio vascular: denied any chest pain, palpitations Gastrointestinal denied any nausea vomiting Pulmonary: Denied any shortness of breath cough Neurologic denied any new focal deficits Objective - Vital Signs Vital signs: Vital Signs Temp 98.4 F 01/10/18 08:30 Pulse 111 H 01/10/18 08:30 Resp 16 01/10/18 08:30 BP 144/66 01/10/18 08:30 Pulse Ox 100 01/10/18 08:30 Intake & Output 01/09/18 01/10/18 01/10/18 19:59 06:59 18:59 Intake Total 136 Output Total Balance 136 Intake: Oral 136 Output: Urine Uretheral (Stark) Other: Voiding Method Indwelling Catheter - Exam GENERAL: The patient is drowsy and able to assess orientation, no acute distress HEENT: Pupils are round and equally reacting to light. EOMI. No scleral icterus. No conjunctival pallor. Normocephalic, atraumatic. No pharyngeal erythema. No thyromegaly. CARDIOVASCULAR: S1 and S2 present. No murmurs, rubs, or gallops. PULMONARY: Chest is clear to auscultation, no wheezing or crackles. ABDOMEN: Soft, nontender, nondistended, normoactive bowel sounds. No palpable organomegaly. -EXTREMITIES: No cyanosis, clubbing, or pedal edema. Status post surgery of Right lower extremity-defer to surgery NEUROLOGICAL: Gross neurological examination did not reveal any focal deficits. SKIN: No rashes. - Labs CBC & Chem 7: 01/09/18 07:00 01/09/18 07:00 Labs: Abnormal Lab Results - Last 24 Hours (Table) 01/09/18 01/09/18 01/10/18 Range/Units 17:26 20:22 06:57 POC Glucose (mg/dL) 240 H 230 H 164 H (75-99) mg/dL Assessment and Plan Plan: Right comminuted hip fracture, status post right hip intertrochanteric fracture closed reduction and intramedullary nailing, anti-correlation as per primary service pain management as per primary service if possible try to avoid opiates , benzodiazepines barbiturates and anticholinergic medications fall: Patient related subacute rehabilitation placement. -Episode of hypotension improved with IV fluids secondary to opiates for pain Dementia, mostly Alzheimer dementia History of asthma Diabetes mellitus, on insulin History of anemia,
[2018-01-10 11:58] LABS: Glucose,Whole Blood 255 mg/dL (75-99)
[2018-01-10 12:47] LABS: Basophils % (A) 0 %; Eosinophils % (A) 0 %; HCT 20.7 % (34.0-46.0); Hypochromasia Slight; Lymphocytes # (A) 0.9 k/uL (1.0-4.8); Lymphocytes % (A) 14 %; MCH 27.7 pg (25.0-35.0); MCHC 31.3 g/dL (31.0-37.0); MCV 88.4 fL (80.0-100.0); Mean Platelet Volume 6.9; Monocytes # (A) 0.3 k/uL (0-1.0); Monocytes % (A) 5 %; Neutrophils # (A) 5.1 k/uL (1.3-7.7); Neutrophils % (A) 79 %; Platelet Count 128 k/uL (150-450); RBC 2.34 m/uL (3.80-5.40); RDW 15.3 % (11.5-15.5); WBC 6.4 k/uL (3.8-10.6)
[2018-01-10 12:52] LABS: HGB 6.5 gm/dL (11.4-16.0)
[2018-01-10] MEDS: ACETAMINOPHEN TAB 325 MG TAB PO PRN ×2 (15:31→21:33)
[2018-01-10 16:47] LABS: Glucose,Whole Blood 278 mg/dL (75-99)
[2018-01-10 20:28] LABS: Glucose,Whole Blood 262 mg/dL (75-99)
[2018-01-10] MEDS: SENNOSIDES-DOCUSATE SODIUM 1 EACH TAB PO SCH (21:17)
[2018-01-10] MEDS: OLANZapine 2.5 MG TAB PO SCH (21:33)
[2018-01-11 07:05] LABS: Glucose,Whole Blood 195 mg/dL (75-99)
[2018-01-11] MEDS: busPIRone HCl 10 MG TAB PO SCH ×2 (07:31→21:51)
[2018-01-11] MEDS: ACETAMINOPHEN TAB 325 MG TAB PO PRN (07:32)
[2018-01-11] MEDS: GLIMEPIRIDE 1 MG TAB PO SCH (07:32)
[2018-01-11] MEDS: PANTOPRAZOLE 40 MG TABLET PO SCH ×2 (07:33→21:52)
[2018-01-11] MEDS: CARBIDOPA-LEVODOPA 25-100 MG 1 EACH TAB PO SCH ×2 (07:33→21:51)
[2018-01-11] MEDS: DULoxetine HCL 60 MG CAPSULE.DR PO SCH (07:34)
[2018-01-11] MEDS: METOPROLOL TARTRATE 25 MG TAB PO SCH ×2 (07:34→21:52)
[2018-01-11] MEDS: INSULIN ASPART 100 UNIT/ML 1 ML 10 ML VIAL SQ SCH ×4 (07:34→21:51)
[2018-01-11] MEDS: SYMBICORT 160-4.5 MCG INHALER INHALATION SCH ×2 (08:54→19:43)
[2018-01-11 09:31] LABS: Basophils % (A) 0 %; Eosinophils % (A) 0 %; HCT 22.2 % (34.0-46.0); HGB 7.4 gm/dL (11.4-16.0); Hypochromasia Slight; Lymphocytes % (A) 16 %; MCH 29.1 pg (25.0-35.0); MCHC 33.2 g/dL (31.0-37.0); MCV 87.7 fL (80.0-100.0); Mean Platelet Volume 6.7; Monocytes # (A) 0.3 k/uL (0-1.0); Monocytes % (A) 5 %; Neutrophils # (A) 4.9 k/uL (1.3-7.7); Neutrophils % (A) 78 %; Platelet Count 137 k/uL (150-450); RBC 2.54 m/uL (3.80-5.40); RDW 14.7 % (11.5-15.5); WBC 6.3 k/uL (3.8-10.6)
[2018-01-11] MEDS: SODIUM CHLORIDE 0.9% 1,000 ML IV SCH (09:31)
--- NOTE | 2018-01-11 10:57 | P.PN ---
Subjective Progress Note Date: 01/11/18 Principal diagnosis: Right intertrochanteric fracture. Status post closed reduction with insertion of intertrochanteric nail right hip. This is a 62-year-old female who is status post close reduction with insertion of intertrochanteric nail to right hip. She continues to have confusion. She has been running a low-grade temperature this morning. Her hemoglobin was 6.5 yesterday. Today hemoglobin of 7.4. Objective - Vital Signs Vital signs: Vital Signs Temp 99.3 F 01/11/18 10:10 Pulse 94 01/11/18 10:10 Resp 16 01/11/18 10:10 BP 125/60 01/11/18 10:10 Pulse Ox 94 L 01/11/18 10:10 Intake & Output 01/10/18 01/11/18 01/11/18 18:59 06:59 18:59 Intake Total 2021 310 360 Output Total 800 400 500 Balance 1222 -90 -140 Intake: Intake, IV Titration 650 Amount Sodium Chloride 0.9% 1, 650 000 ml @ 100 mls/hr IV . Q10H [facility] Rx#:[id number] Oral 1372 360 Blood Product 310 Rc Pheresis As-3 Unit 310 [id number] Output: Urine 800 400 500 Other: Voiding Method Indwelling Catheter Indwelling Catheter - Exam This is a 62-year-old female in no acute distress. She is sleeping soundly. Exam of the right hip reveals that her incisions have no drainage. There is no erythema or ecchymosis. Mild soft tissue swelling about the hip. Pedal pulses +2/4. Capillary refill is less than 3 seconds. - Labs CBC & Chem 7: 01/11/18 08:57 01/09/18 07:00 Labs: Abnormal Lab Results - Last 24 Hours (Table) 01/10/18 01/10/18 01/10/18 Range/Units 11:46 12:26 16:36 RBC 2.34 L (3.80-5.40) m/uL Hgb 6.5 L* (11.4-16.0) gm/dL Hct 20.7 L (34.0-46.0) % Plt Count 128 L (150-450) k/uL Lymphocytes # 0.9 L (1.0-4.8) k/uL POC Glucose (mg/dL) 255 H 278 H (75-99) mg/dL Crossmatch 01/10/18 01/10/18 01/11/18 Range/Units 17:44 20:17 06:53 RBC (3.80-5.40) m/uL Hgb (11.4-16.0) gm/dL Hct (34.0-46.0) % Plt Count (150-450) k/uL Lymphocytes # (1.0-4.8) k/uL POC Glucose (mg/dL) 262 H 195 H (75-99) mg/dL Crossmatch See Detail 01/11/18 Range/Units 08:57 RBC 2.54 L (3.80-5.40) m/uL Hgb 7.4 L (11.4-16.0) gm/dL Hct 22.2 L (34.0-46.0) % Plt Count 137 L (150-450) k/uL Lymphocytes # (1.0-4.8) k/uL POC Glucose (mg/dL) (75-99) mg/dL Crossmatch Assessment and Plan (1) Diabetes Current Visit: Yes Status: Acute Code(s): E11.9 - TYPE 2 DIABETES MELLITUS WITHOUT COMPLICATIONS SNOMED Code(s): 54200225 (2) GERD (gastroesophageal reflux disease) Current Visit: Yes Status: Acute Code(s): K21.9 - GASTRO-ESOPHAGEAL REFLUX DISEASE WITHOUT ESOPHAGITIS SNOMED Code(s): 486968881 (3) Dementia Current Visit: Yes Status: Acute Code(s): F03.90 - UNSPECIFIED DEMENTIA WITHOUT BEHAVIORAL DISTURBANCE SNOMED Code(s): 87260792 (4) Fall at long-term Current Visit: Yes Status: Acute Code(s): W19.XXXA - UNSPECIFIED FALL, INITIAL ENCOUNTER; Y92.129 - UNSP PLACE IN P[facility]ITENT[facility]ARY PLACE SNOMED Code(s ): 705118446 (5) Intertrochanteric fracture of right hip Current Visit: Yes Status: Acute Code(s): S72.141A - DISPLACED INTERTROCHANTERIC FRACTURE OF RIGHT FEMUR, INIT SNOMED Code(s): 119492121 Plan: The clinical and radiographic findings are discussed with the nursing staff. There is no family present at bedside. Discontinue Stark catheter. May be discharged to long-term when cleared with medical management.
[2018-01-11 11:48] LABS: Glucose,Whole Blood 267 mg/dL (75-99)
[2018-01-11 14:55] VITALS: BMI 26.5
[2018-01-11 17:02] LABS: Glucose,Whole Blood 282 mg/dL (75-99)
--- NOTE | 2018-01-11 17:17 | P.PN ---
Subjective Progress Note Date: 01/11/18 Progress note being dictated for Dr. Clay Interval history:This is a 62 years old female with past medical history of dementia from longterm, asthma, diabetes mellitus, anemia. Presents because of fall and right hip fracture. When I saw the patient she was lying in bed not in distress her pain mild on the right hip area, the right hip is shortened and externally rotated. An informed the patient about her current medical condition. Review of Systems CONSTITUTIONAL: No fever, no malaise, no fatigue. HEENT: No recent visual problems or hearing problems. Denied any sore throat. CARDIOVASCULAR: No orthopnea, PND, no palpitations, no syncope. PULMONARY: No shortness of breath, no cough, no hemoptysis. GASTROINTESTINAL: No diarrhea, no nausea, no vomiting, no abdominal pain. Normoactive bowel sounds. NEUROLOGICAL: No headaches, no weakness, no numbness. HEMATOLOGICAL: Denies any bleeding or petechiae. GENITOURINARY: Denies any burning micturition, frequency, or urgency. MUSCULOSKELETAL/RHEUMATOLOGICAL: Denies any joint pain, swelling, or any muscle pain. ENDOCRINE: Denies any polyuria or polydipsia. 01/08/2018 patient has just returned from orthopedic surgery, tolerated procedure well. Pain controlled.Minimal EBL reported. Mild tachycardia, patient did not receive beta renuka prior to surgery and is receiving now. Denies chest pain, palpitations, or increased shortness of breath. 01/09/2018 Patient blood pressure dropped last night which improved with IV fluids disease secondary to opiate and ALLERGIES see a patient heart rate improved with beta renuka.patient is drowsy recommend to avoid opiate analgesia as much as we can. 01/10/2018 Distal excessively sleepy. Patient doesn't have any history of atrial fibrillation or DVT. Anti-correlation management as per orthopedic surgery. Constitutional: Denied any fatigue denied any fever. Cardio vascular: denied any chest pain, palpitations Gastrointestinal denied any nausea vomiting Pulmonary: Denied any shortness of breath cough Neurologic denied any new focal deficits 01/11/2018 hemoglobin 7.4, DVT prophylaxis on hold, ordered to start tomorrow as per orthopedic surgery. IV fluids discontinued. Diet intake 50%. Objective - Vital Signs Vital signs: Vital Signs Temp 97.4 F L 01/11/18 15:00 Pulse 88 01/11/18 15:00 Resp 16 01/11/18 10:10 BP 109/67 01/11/18 15:00 Pulse Ox 99 01/11/18 15:00 Intake & Output 01/10/18 01/11/18 01/11/18 18:59 06:59 18:59 Intake Total 2021 310 496 Output Total 800 400 500 Balance 1222 -90 -4 Weight 65.771 kg Intake: Intake, IV Titration 650 Amount Sodium Chloride 0.9% 1, 650 000 ml @ 100 mls/hr IV . Q10H [facility] Rx#:[id number] Oral 1372 496 Blood Product 310 Rc Pheresis As-3 Unit 310 [id number] Output: Urine 800 400 500 Other: Voiding Method Indwelling Catheter Indwelling Catheter Indwelling Catheter - Exam GENERAL: The patient is alert and oriented x1-2, no acute distress HEENT: Pupils are round and equally reacting to light. EOMI. No scleral icterus. No conjunctival pallor. Normocephalic, atraumatic. No pharyngeal erythema. No thyromegaly. CARDIOVASCULAR: S1 and S2 present. No murmurs, rubs, or gallops. PULMONARY: Chest is clear to auscultation, no wheezing or crackles. ABDOMEN: Soft, nontender, nondistended, normoactive bowel sounds. No palpable organomegaly. -EXTREMITIES: No cyanosis, clubbing, or pedal edema. Status post surgery of Right lower extremity-defer to surgery NEUROLOGICAL: Gross neurological examination did not reveal any focal deficits. SKIN: No rashes. - Labs CBC & Chem 7: 01/11/18 08:57 01/09/18 07:00 Labs: Abnormal Lab Results - Last 24 Hours (Table) 01/10/18 01/10/18 01/11/18 Range/Units 17:44 20:17 06:53 RBC (3.80-5.40) m/uL Hgb (11.4-16.0) gm/dL Hct (34.0-46.0) % Plt Count (150-450) k/uL POC Glucose (mg/dL) 262 H 195 H (75-99) mg/dL Crossmatch See Detail 01/11/18 01/11/18 01/11/18 Range/Units 08:57 11:36 16:51 RBC 2.54 L (3.80-5.40) m/uL Hgb 7.4 L (11.4-16.0) gm/dL Hct 22.2 L (34.0-46.0) % Plt Count 137 L (150-450) k/uL POC Glucose (mg/dL) 267 H 282 H (75-99) mg/dL Crossmatch Assessment and Plan Assessment: Right comminuted hip fracture, status post right hip intertrochanteric fracture closed reduction and intramedullary nailing fall Dementia, mostly Alzheimer dementia History of asthma Diabetes mellitus, on insulin U History of anemia, Plan: Continue on current medication regime ,monitoring and symptomatic treatment. Pain management, anticoagulation as per orthopedic surgery. Aggressive pulmonary toileting. PT/OT. IV fluids discontinued. Renal function improved, blood sugars uncontrolled ,Metformin resumed Close monitoring of hemoglobin, renal function with repeat labs ordered for a.m. discharge planning for subacute rehab tomorrow as per orthopedic surgery. The impression and plan of care has been dictated as directed. : I performed a history and examination of this patient, discussed the same with the dictator. I agree with the dictator's note ,documented as a scribe. Any additional findings or plans will be noted.
[2018-01-11] MEDS ORDERED: WARFARIN 5 MG TAB PO ONE (18:00)
[2018-01-11] MEDS ORDERED: WARFARIN 1 MG TAB PO SCH (18:00)
[2018-01-11 20:34] LABS: Glucose,Whole Blood 311 mg/dL (75-99)
[2018-01-11] MEDS ORDERED: INSULIN DETEMIR 100 UNIT/ML 10 ML VIAL SQ SCH (21:00)
[2018-01-11] MEDS: OLANZapine 2.5 MG TAB PO SCH (21:52)
[2018-01-11] MEDS: metFORMIN 500 MG TAB PO SCH (21:52)
[2018-01-11] MEDS: SENNOSIDES-DOCUSATE SODIUM 1 EACH TAB PO SCH (21:53)
[2018-01-12] MEDS: ACETAMINOPHEN TAB 325 MG TAB PO PRN ×2 (03:37→10:02)
[2018-01-12 07:10] LABS: Basophils % (A) 0 %; Eosinophils % (A) 0 %; HGB 7.1 gm/dL (11.4-16.0); Lymphocytes # (A) 1.3 k/uL (1.0-4.8); Lymphocytes % (A) 18 %; MCHC 32.4 g/dL (31.0-37.0); MCV 86.5 fL (80.0-100.0); Mean Platelet Volume 6.7; Monocytes # (A) 0.4 k/uL (0-1.0); Monocytes % (A) 5 %; Neutrophils # (A) 5.4 k/uL (1.3-7.7); Neutrophils % (A) 75 %; Platelet Count 181 k/uL (150-450); RBC 2.54 m/uL (3.80-5.40); RDW 14.7 % (11.5-15.5); WBC 7.2 k/uL (3.8-10.6)
[2018-01-12 07:12] LABS: Glucose,Whole Blood 181 mg/dL (75-99)
[2018-01-12 07:23] LABS: Anion Gap 5 mmol/L; Blood Urea Nitrogen 12 mg/dL (7-17); Calcium 9.2 mg/dL (8.4-10.2); Carbon Dioxide 22 mmol/L (22-30); Chloride 113 mmol/L (98-107); Glucose 151 mg/dL (74-99); Potassium 3.6 mmol/L (3.5-5.1); Sodium 140 mmol/L (137-145)
[2018-01-12 07:30] LABS: INR 1.2 (<1.2); Prothrombin Time 11.6 sec (9.0-12.0)
[2018-01-12] MEDS: SYMBICORT 160-4.5 MCG INHALER INHALATION SCH ×2 (07:48→19:47)
--- NOTE | 2018-01-12 08:55 | P.PN ---
Subjective Progress Note Date: 01/12/18 Principal diagnosis: Status post right hip IT nail This is a 62 year-old female post right hip IT nail. This is post-op day 4. The patient was evaluated at the bedside today. The patient denies nausea, vomiting, abdominal pain, shortness of breath, and chest pain this morning. She states her pain is moderately controlled at this time. The patient has been up with physical therapy. Her hemoglobin is 7.1 today. Objective - Vital Signs Vital signs: Vital Signs Temp 98.9 F 01/12/18 00:16 Pulse 97 01/12/18 00:16 Resp 15 01/12/18 00:16 BP 135/71 01/12/18 00:16 Pulse Ox 98 01/12/18 00:16 Intake & Output 01/11/18 01/12/18 01/12/18 18:59 06:59 18:59 Intake Total 888 2160 Output Total 1000 Balance -112 2160 Weight 65.771 kg Intake: Intake, IV Titration 1200 Amount Sodium Chloride 0.9% 1, 1200 000 ml @ 100 mls/hr IV . Q10H [facility] Rx#:[id number] Oral 888 960 Output: Urine 1000 Straight 500 Other: Voiding Method Diaper # Voids 1 - Exam The patient does not appear in acute distress. Alert and orientated x3. Dressing is clean dry and intact. Incision appears fine with no erythema or active drainage. Calf is soft and nontender. Good foot and ankle motion without difficulty. Sensation and circulatory status is intact. - Labs CBC & Chem 7: 01/12/18 06:19 01/12/18 06:19 Labs: Abnormal Lab Results - Last 24 Hours (Table) 01/10/18 01/11/18 01/11/18 Range/Units 17:44 08:57 11:36 RBC 2.54 L (3.80-5.40) m/uL Hgb 7.4 L (11.4-16.0) gm/dL Hct 22.2 L (34.0-46.0) % Plt Count 137 L (150-450) k/uL INR (<1.2) Chloride (98-107) mmol/L Glucose (74-99) mg/dL POC Glucose (mg/dL) 267 H (75-99) mg/dL Crossmatch See Detail 01/11/18 01/11/18 01/12/18 Range/Units 16:51 20:22 06:19 RBC (3.80-5.40) m/uL Hgb (11.4-16.0) gm/dL Hct (34.0-46.0) % Plt Count (150-450) k/uL INR 1.2 H (<1.2) Chloride (98-107) mmol/L Glucose (74-99) mg/dL POC Glucose (mg/dL) 282 H 311 H (75-99) mg/dL Crossmatch 01/12/18 01/12/18 01/12/18 Range/Units 06:19 06:19 07:01 RBC 2.54 L (3.80-5.40) m/uL Hgb 7.1 L (11.4-16.0) gm/dL Hct 22.0 L (34.0-46.0) % Plt Count (150-450) k/uL INR (<1.2) Chloride 113 H (98-107) mmol/L Glucose 151 H (74-99) mg/dL POC Glucose (mg/dL) 181 H (75-99) mg/dL Crossmatch Assessment and Plan (1) Dementia Current Visit: Yes Status: Acute Code(s): F03.90 - UNSPECIFIED DEMENTIA WITHOUT BEHAVIORAL DISTURBANCE SNOMED Code(s): 79729100 (2) Diabetes Current Visit: Yes Status: Acute Code(s): E11.9 - TYPE 2 DIABETES MELLITUS WITHOUT COMPLICATIONS SNOMED Code(s): 48388113 (3) Intertrochanteric fracture of right hip Current Visit: Yes Status: Acute Code(s): S72.141A - DISPLACED INTERTROCHANTERIC FRACTURE OF RIGHT FEMUR, INIT SNOMED Code(s): 624685321 Plan: 1. Continue pain control 2. Anticoagulation with Coumadin 1mg daily 3. Continue physical therapy and ambulation 4. Hgb 7.1 today, 1 unit of PRBCs ordered today 5. Anticipate discharge to [facility] when cleared by internal medicine
[2018-01-12] MEDS: INSULIN ASPART 100 UNIT/ML 1 ML 10 ML VIAL SQ SCH ×4 (09:47→22:41)
[2018-01-12] MEDS: GLIMEPIRIDE 1 MG TAB PO SCH (09:51)
[2018-01-12] MEDS: metFORMIN 500 MG TAB PO SCH ×2 (09:51→22:43)
[2018-01-12] MEDS: PANTOPRAZOLE 40 MG TABLET PO SCH ×2 (09:52→22:44)
[2018-01-12] MEDS: CARBIDOPA-LEVODOPA 25-100 MG 1 EACH TAB PO SCH ×2 (09:52→22:41)
[2018-01-12] MEDS: METOPROLOL TARTRATE 25 MG TAB PO SCH ×2 (09:52→22:43)
[2018-01-12] MEDS: busPIRone HCl 10 MG TAB PO SCH ×2 (09:53→22:41)
[2018-01-12] MEDS: DULoxetine HCL 60 MG CAPSULE.DR PO SCH (09:53)
[2018-01-12 12:18] LABS: Glucose,Whole Blood 233 mg/dL (75-99)
--- NOTE | 2018-01-12 13:53 | CDI ---
Last Revision, February 2017 Documentation Clarification Form Date: 01/12/2018 1:39:55 PM From: Donna Obregon RN, CCDS Admit Date: 01/07/2018 2:36:00 AM Patient Name: Nirmala Paul Visit Number: [id number] ATTENTION: The Clinical Documentation Specialists (CDI) and [facility] Coding Staff appreciate your assistance in clarifying documentation. Please respond to the clarification below the line at the bottom and electronically sign. The CDI & [facility] Coding staff will review the response and follow-up if needed. Please note: Queries are made part of the Legal Health Record. If you have any questions, please contact the author of this message via ITS. Washington Galindo MD A diagnosis of anemia lacks specificity to accurately reflect your patients severity of condition and clarification is needed. History/Risk Factors: chronic anemia with transfusions, Asthma, vascular disorder, Osteo w amputations, Clinical indicators: Hemoglobin: 11.2/9/7.7/6.5/7.4/7.1 Hematocrit: 34.7/28.1/24.8/20.7/22.2/22 Treatment: 1 U PC 1.5 L IVF Bolus In order to capture the severity of condition, please clarify the type of anemia and etiology if known: Acute on Chronic blood loss anemia Chronic blood loss anemia Iron deficiency anemia Anemia of chronic disease Nutritional anemia Unable to determine Other, please specify Please continue to document in your progress notes and discharge summary in order to capture severity of illness and risk of mortality. Include clinical findings that support your diagnosis. Acute on Chronic blood loss anemia MTDD
[2018-01-12] MEDS ORDERED: traMADol 50 MG TAB PO PRN ×2 (14:33)
--- NOTE | 2018-01-12 14:58 | P.PN ---
Subjective Progress Note Date: 01/12/18 Progress note being dictated for Dr. Clay Interval history:This is a 62 years old female with past medical history of dementia from detention, asthma, diabetes mellitus, anemia. Presents because of fall and right hip fracture. When I saw the patient she was lying in bed not in distress her pain mild on the right hip area, the right hip is shortened and externally rotated. An informed the patient about her current medical condition. Review of Systems CONSTITUTIONAL: No fever, no malaise, no fatigue. HEENT: No recent visual problems or hearing problems. Denied any sore throat. CARDIOVASCULAR: No orthopnea, PND, no palpitations, no syncope. PULMONARY: No shortness of breath, no cough, no hemoptysis. GASTROINTESTINAL: No diarrhea, no nausea, no vomiting, no abdominal pain. Normoactive bowel sounds. NEUROLOGICAL: No headaches, no weakness, no numbness. HEMATOLOGICAL: Denies any bleeding or petechiae. GENITOURINARY: Denies any burning micturition, frequency, or urgency. MUSCULOSKELETAL/RHEUMATOLOGICAL: Denies any joint pain, swelling, or any muscle pain. ENDOCRINE: Denies any polyuria or polydipsia. 01/08/2018 patient has just returned from orthopedic surgery, tolerated procedure well. Pain controlled.Minimal EBL reported. Mild tachycardia, patient did not receive beta renuka prior to surgery and is receiving now. Denies chest pain, palpitations, or increased shortness of breath. 01/09/2018 Patient blood pressure dropped last night which improved with IV fluids disease secondary to opiate and ALLERGIES see a patient heart rate improved with beta renuka.patient is drowsy recommend to avoid opiate analgesia as much as we can. 01/10/2018 Distal excessively sleepy. Patient doesn't have any history of atrial fibrillation or DVT. Anti-correlation management as per orthopedic surgery. Constitutional: Denied any fatigue denied any fever. Cardio vascular: denied any chest pain, palpitations Gastrointestinal denied any nausea vomiting Pulmonary: Denied any shortness of breath cough Neurologic denied any new focal deficits 01/11/2018 hemoglobin 7.4, DVT prophylaxis on hold, ordered to start tomorrow as per orthopedic surgery. IV fluids discontinued. Diet intake 50%. 01/11/2018 hemoglobin 7.1, symptomatic with lightheadedness dizziness, receiving transfusion of 1 unit of packed RBCs. No oozing from surgical site, no bleeding reported. Good diet intake, with no nausea or vomiting. Positive bowel movement. Pain better controlled today. Blood sugars uncontrolled. Significant improvement in renal function. Objective - Vital Signs Vital signs: Vital Signs Temp 97.8 F 01/12/18 14:21 Pulse 84 01/12/18 14:21 Resp 20 01/12/18 14:21 BP 148/67 01/12/18 14:21 Pulse Ox 97 01/12/18 14:21 Intake & Output 01/11/18 01/12/18 01/12/18 18:59 06:59 18:59 Intake Total 888 2160 310 Output Total 1000 Balance -112 2160 310 Weight 65.771 kg Intake: Intake, IV Titration 1200 Amount Sodium Chloride 0.9% 1, 1200 000 ml @ 100 mls/hr IV . Q10H [facility] Rx#:[id number] Oral 888 960 Blood Product 310 Rc Pheresis As-3 Unit 310 [id number] Output: Urine 1000 Straight 500 Other: Voiding Method Diaper Diaper Incontinent # Voids 1 2 # Bowel Movements 1 - Exam GENERAL: The patient is alert and oriented x2, no acute distress HEENT: Pupils are round and equally reacting to light. EOMI. No scleral icterus. No conjunctival pallor. Normocephalic, atraumatic. No pharyngeal erythema. No thyromegaly. CARDIOVASCULAR: S1 and S2 present. No murmurs, rubs, or gallops. PULMONARY: Chest is clear to auscultation, no wheezing or crackles. ABDOMEN: Soft, nontender, nondistended, normoactive bowel sounds. No palpable organomegaly. -EXTREMITIES: No cyanosis, clubbing, or pedal edema. Status post surgery of Right lower extremity-defer to surgery NEUROLOGICAL: Gross neurological examination did not reveal any focal deficits. SKIN: No rashes. - Labs CBC & Chem 7: 01/12/18 06:19 01/12/18 06:19 Labs: Abnormal Lab Results - Last 24 Hours (Table) 01/10/18 01/11/18 01/11/18 Range/Units 17:44 16:51 20:22 RBC (3.80-5.40) m/uL Hgb (11.4-16.0) gm/dL Hct (34.0-46.0) % INR (<1.2) Chloride (98-107) mmol/L Glucose (74-99) mg/dL POC Glucose (mg/dL) 282 H 311 H (75-99) mg/dL Crossmatch See Detail 01/12/18 01/12/18 01/12/18 Range/Units 06:19 06:19 06:19 RBC 2.54 L (3.80-5.40) m/uL Hgb 7.1 L (11.4-16.0) gm/dL Hct 22.0 L (34.0-46.0) % INR 1.2 H (<1.2) Chloride 113 H (98-107) mmol/L Glucose 151 H (74-99) mg/dL POC Glucose (mg/dL) (75-99) mg/dL Crossmatch 01/12/18 01/12/18 Range/Units 07:01 11:44 RBC (3.80-5.40) m/uL Hgb (11.4-16.0) gm/dL Hct (34.0-46.0) % INR (<1.2) Chloride (98-107) mmol/L Glucose (74-99) mg/dL POC Glucose (mg/dL) 181 H 233 H (75-99) mg/dL Crossmatch Assessment and Plan Assessment: Right comminuted hip fracture, status post right hip intertrochanteric fracture closed reduction and intramedullary nailing fall Dementia, mostly Alzheimer dementia History of asthma Diabetes mellitus anemia, of chronic disease, possible acute postoperative blood loss anemia. Transfusion of 1 unit of packed RBCs. Ferritin level ordered, Further workup outpatient. Plan: Continue on current medication regime ,monitoring and symptomatic treatment. Pain management, anticoagulation as per orthopedic surgery. Aggressive pulmonary toileting. Blood sugars uncontrolled , Levemir dose increased, close monitoring of Accu-Cheks .ferritin level ordered , receiving one unit of packed RBCs.Close monitoring of hemoglobin with repeat labs ordered for a.m. discharge planning for subacute rehab tomorrow as per orthopedic surgery. The impression and plan of care has been dictated as directed. : I performed a history and examination of this patient, discussed the same with the dictator. I agree with the dictator's note ,documented as a scribe. Any additional findings or plans will be noted.
[2018-01-12 17:29] LABS: Glucose,Whole Blood 140 mg/dL (75-99)
[2018-01-12] MEDS ORDERED: WARFARIN 5 MG TAB PO ONE (18:00)
[2018-01-12] MEDS ORDERED: WARFARIN 1 MG TAB PO ONE (18:00)
[2018-01-12] MEDS ORDERED: WARFARIN 1 MG TAB PO SCH (18:00)
[2018-01-12] MEDS: WARFARIN 1 MG TAB PO SCH (19:44)
[2018-01-12 20:10] LABS: Glucose,Whole Blood 120 mg/dL (75-99)
[2018-01-12] MEDS ORDERED: INSULIN DETEMIR 100 UNIT/ML 10 ML VIAL SQ SCH (21:00)
[2018-01-12] MEDS: OLANZapine 2.5 MG TAB PO SCH (22:43)
[2018-01-12] MEDS: SENNOSIDES-DOCUSATE SODIUM 1 EACH TAB PO SCH (22:44)
[2018-01-13 00:51] VITALS: RESP 15
[2018-01-13 07:17] LABS: Glucose,Whole Blood 83 mg/dL (75-99)
[2018-01-13 07:39] LABS: Basophils % (A) 0 %; Eosinophils % (A) 0 %; HCT 24.2 % (34.0-46.0); Hypochromasia Slight; Lymphocytes # (A) 1.5 k/uL (1.0-4.8); Lymphocytes % (A) 22 %; MCH 28.9 pg (25.0-35.0); MCHC 33.3 g/dL (31.0-37.0); MCV 86.8 fL (80.0-100.0); Mean Platelet Volume 6.9; Monocytes # (A) 0.4 k/uL (0-1.0); Monocytes % (A) 6 %; Neutrophils # (A) 4.9 k/uL (1.3-7.7); Neutrophils % (A) 70 %; Platelet Count 200 k/uL (150-450); Poikilocytosis Slight; RBC 2.79 m/uL (3.80-5.40)
[2018-01-13 07:48] LABS: INR 1.6 (<1.2); Prothrombin Time 14.7 sec (9.0-12.0)
[2018-01-13] MEDS: INSULIN ASPART 100 UNIT/ML 1 ML 10 ML VIAL SQ SCH ×3 (08:03→17:42)
--- NOTE | 2018-01-13 08:56 | P.DS ---
Providers Date of admission: 01/07/18 02:36 Expected date of discharge: 01/13/18 Attending physician: Kb Joshi Consults: 01/07/18 12:41 Consult Physician Routine Consulting Provider: David Carr Consult Reason/Comments: med management Do you want consulting provider notified?: Yes 01/10/18 10:17 Consult Physician Routine Consulting Provider: David Carr Consult Reason/Comments: anticoagulation Do you want consulting provider notified?: Yes Primary care physician: Mark Mendoza - [facility] Diagnosis(es) (1) Diabetes Current Visit: Yes Status: Acute (2) GERD (gastroesophageal reflux disease) Current Visit: Yes Status: Acute (3) Dementia Current Visit: Yes Status: Acute (4) Fall at [facility] Current Visit: Yes Status: Acute (5) Intertrochanteric fracture of right hip Current Visit: Yes Status: Acute Hospital Course: This is a 62-year-old female who is admitted to [facility] on 01/07/2018 after falling and sustaining injury to the right hip. On exam and x- ray in the emergency department he is found to have an intertrochanteric fracture of the right hip. He is admitted to our service for surgical intervention and care. Patient is taken to surgery for close reduction and insertion of intertrochanteric nail of the right hip. The procedure was performed without complication or sequelae. The patient has baseline confusion which continued throughout her stay. The patient is doing fairly well postoperatively. Vital signs and labs are stable on postoperative day #6. Patient is discharged to inpatient rehab in good condition. Please see med rec for accurate list of discharge medications. Plan - Discharge Summary Discharge Rx Participant: Yes New Discharge Prescriptions: New Warfarin [Coumadin] 1 mg PO DAILY #30 tablet traMADol HCl [Ultram] 50 mg PO Q6HR PRN #50 tab PRN Reason: Pain No Action DULoxetine HCL [Cymbalta] 60 mg PO DAILY Fenofibrate Nanocrystallized [Fenofibrate] 145 mg PO DAILY busPIRone HCL [Buspar] 30 mg PO BID Carbidopa-Levodopa 25-100 mg [Sinemet 25-100 mg] 1 tab PO Q12H Ergocalciferol (Vitamin D2) [Vitamin D2] 50,000 unit PO TU Albuterol Nebulized [Ventolin Nebulized] 3 ml INHALATION RT-DAILY PRN PRN Reason: Shortness Of Breath Magnesium Oxide 400 mg PO DAILY Omeprazole [PriLOSEC] 20 mg PO BID Metoprolol Tartrate [Lopressor] 25 mg PO BID tab Acetaminophen [Tylenol] 650 mg PO Q8H PRN PRN Reason: Pain OLANZapine [ZyPREXA] 7.5 mg PO HS metFORMIN HCL [Glucophage] 1,000 mg PO DAILY Multivitamins, Thera [Multivitamin (formulary)] 1 tab PO DAILY metFORMIN HCL [Glucophage] 500 mg PO HS Glimepiride [Amaryl] 1 mg PO DAILY Discharge Medication List DULoxetine HCL [Cymbalta] 60 mg PO DAILY 10/11/16 [History] Fenofibrate Nanocrystallized [Fenofibrate] 145 mg PO DAILY 10/11/16 [History] busPIRone HCL [Buspar] 30 mg PO BID 10/11/16 [History] Carbidopa-Levodopa 25-100 mg [Sinemet 25-100 mg] 1 tab PO Q12H 02/26/17 [History ] Albuterol Nebulized [Ventolin Nebulized] 3 ml INHALATION RT-DAILY PRN 09/03/17 [ History] Ergocalciferol (Vitamin D2) [Vitamin D2] 50,000 unit PO TU 09/03/17 [History] Magnesium Oxide 400 mg PO DAILY 09/03/17 [History] Omeprazole [PriLOSEC] 20 mg PO BID 09/03/17 [History] Metoprolol Tartrate [Lopressor] 25 mg PO BID tab 09/30/17 [Rx] Acetaminophen [Tylenol] 650 mg PO Q8H PRN 01/06/18 [History] Glimepiride [Amaryl] 1 mg PO DAILY 01/06/18 [History] Multivitamins, Thera [Multivitamin (formulary)] 1 tab PO DAILY 01/06/18 [History ] OLANZapine [ZyPREXA] 7.5 mg PO HS 01/06/18 [History] metFORMIN HCL [Glucophage] 1,000 mg PO DAILY 01/06/18 [History] metFORMIN HCL [Glucophage] 500 mg PO HS 01/06/18 [History] Warfarin [Coumadin] 1 mg PO DAILY #30 tablet 01/13/18 [Rx] traMADol HCl [Ultram] 50 mg PO Q6HR PRN #50 tab 01/13/18 [Rx] Follow up Appointment(s)/Referral(s): Mark Mendoza DO [Primary Care Provider] - 1-2 days [facility] [place], [NON-STAFF] - As Needed Kb Joshi MD [STAFF PHYSICIAN] - 4 Weeks Ambulatory/Diagnostic Orders: Prothrombin Time INR [LAB.AMB] Location: None Selected
[2018-01-13] MEDS: SYMBICORT 160-4.5 MCG INHALER INHALATION SCH (09:09)
[2018-01-13] MEDS: DULoxetine HCL 60 MG CAPSULE.DR PO SCH (09:18)
[2018-01-13] MEDS: busPIRone HCl 10 MG TAB PO SCH (09:18)
[2018-01-13] MEDS: PANTOPRAZOLE 40 MG TABLET PO SCH (09:18)
[2018-01-13] MEDS: METOPROLOL TARTRATE 25 MG TAB PO SCH (09:18)
[2018-01-13] MEDS: CARBIDOPA-LEVODOPA 25-100 MG 1 EACH TAB PO SCH (09:18)
[2018-01-13] MEDS: ACETAMINOPHEN TAB 325 MG TAB PO PRN ×2 (09:19→16:45)
[2018-01-13] MEDS: metFORMIN 500 MG TAB PO SCH (09:19)
[2018-01-13] MEDS: GLIMEPIRIDE 1 MG TAB PO SCH (09:21)
--- NOTE | 2018-01-13 11:15 | XR ---
EXAMINATION TYPE: XR chest 1V portable DATE OF EXAM: 01/13/2018 CLINICAL HISTORY: Fever after recent hip surgery. TECHNIQUE: Single AP portable upright view of the chest is obtained. COMPARISON: Chest x-ray from September 25, 2017. CT chest September 28, 2017. FINDINGS: No new suspicious focal airspace opacity, pleural effusion, or pneumothorax is seen bilate rally. Small degree of right basilar lateral linear scarring and/or atelectasis is noted. Cardiac nicole houette size is stable and mildly enlarged. Osseous structures remain somewhat demineralized. IMPRESSION: No new suspicious focal infiltrate.
[2018-01-13 12:07] LABS: Glucose,Whole Blood 167 mg/dL (75-99)
[2018-01-13 14:38] LABS: Appearance,Urine Cloudy (Clear); Bacteria,Urine Occasional /hpf; Bilirubin,Urine Negative (Negative); Blood,Urine Trace (Negative); Color,Urine Yellow; Glucose,Urine (UA) Negative (Negative); Ketones,Urine Negative (Negative); Leukocyte Esterase,Urine Large (Negative); Nitrite,Urine Negative (Negative); Protein,Urine 1+ (Negative); RBC,Urine 3 /hpf (0-5); Specific Gravity,Urine 1.013 (1.001-1.035); Urobilinogen,Urine <2.0 mg/dL (<2.0)
[2018-01-13 15:02] VITALS: BP 112/66; PULSE 97; TEMP 99
--- NOTE | 2018-01-13 15:28 | P.PN ---
Subjective Progress Note Date: 01/13/18 Progress note being dictated for Dr. Clay Interval history:This is a 62 years old female with past medical history of dementia from [facility], asthma, diabetes mellitus, anemia. Presents because of fall and right hip fracture. When I saw the patient she was lying in bed not in distress her pain mild on the right hip area, the right hip is shortened and externally rotated. An informed the patient about her current medical condition. Review of Systems CONSTITUTIONAL: No fever, no malaise, no fatigue. HEENT: No recent visual problems or hearing problems. Denied any sore throat. CARDIOVASCULAR: No orthopnea, PND, no palpitations, no syncope. PULMONARY: No shortness of breath, no cough, no hemoptysis. GASTROINTESTINAL: No diarrhea, no nausea, no vomiting, no abdominal pain. Normoactive bowel sounds. NEUROLOGICAL: No headaches, no weakness, no numbness. HEMATOLOGICAL: Denies any bleeding or petechiae. GENITOURINARY: Denies any burning micturition, frequency, or urgency. MUSCULOSKELETAL/RHEUMATOLOGICAL: Denies any joint pain, swelling, or any muscle pain. ENDOCRINE: Denies any polyuria or polydipsia. 01/08/2018 patient has just returned from orthopedic surgery, tolerated procedure well. Pain controlled.Minimal EBL reported. Mild tachycardia, patient did not receive beta renuka prior to surgery and is receiving now. Denies chest pain, palpitations, or increased shortness of breath. 01/09/2018 Patient blood pressure dropped last night which improved with IV fluids disease secondary to opiate and ALLERGIES see a patient heart rate improved with beta renuka.patient is drowsy recommend to avoid opiate analgesia as much as we can. 01/10/2018 Distal excessively sleepy. Patient doesn't have any history of atrial fibrillation or DVT. Anti-correlation management as per orthopedic surgery. Constitutional: Denied any fatigue denied any fever. Cardio vascular: denied any chest pain, palpitations Gastrointestinal denied any nausea vomiting Pulmonary: Denied any shortness of breath cough Neurologic denied any new focal deficits 01/11/2018 hemoglobin 7.4, DVT prophylaxis on hold, ordered to start tomorrow as per orthopedic surgery. IV fluids discontinued. Diet intake 50%. 01/12/2018 hemoglobin 7.1, symptomatic with lightheadedness dizziness, receiving transfusion of 1 unit of packed RBCs. No oozing from surgical site, no bleeding reported. Good diet intake, with no nausea or vomiting. Positive bowel movement. Pain better controlled today. Blood sugars uncontrolled. Significant improvement in renal function. 01/13/2018 earlier this morning patient had a axillary temperature of 100.5 . She had multiple blankets, removed , temperature retaken, currently afebrile, temperature 98.9. Hemoglobin up to 8 after 1 unit of packed RBCs yesterday.VSS. Pain controlled. Blood sugars controlled. Denies chest pain or palpitations. No increased shortness of breath. Objective - Vital Signs Vital signs: Vital Signs Temp 98.9 F 01/13/18 09:17 Pulse 94 01/13/18 07:00 Resp 15 01/13/18 07:00 BP 134/71 01/13/18 07:00 Pulse Ox 95 01/13/18 07:00 Intake & Output 01/12/18 01/13/18 01/13/18 18:59 06:59 18:59 Intake Total 310 300 Balance 310 300 Intake: Oral 300 Blood Product 310 Rc Pheresis As-3 Unit 310 [id number] Other: Voiding Method Diaper Diaper Incontinent Incontinent # Voids 3 3 # Bowel Movements 1 - Exam GENERAL: The patient is alert and oriented x2, no acute distress HEENT: Pupils are round and equally reacting to light. EOMI. No scleral icterus. No conjunctival pallor. Normocephalic, atraumatic. No pharyngeal erythema. CARDIOVASCULAR: S1 and S2 present. No murmurs, rubs, or gallops. PULMONARY: Chest is clear to auscultation, no wheezing or crackles. ABDOMEN: Soft, nontender, nondistended, normoactive bowel sounds. No palpable organomegaly. -EXTREMITIES: No cyanosis, clubbing, or pedal edema. Status post surgery of Right lower extremity-defer to surgery NEUROLOGICAL: Gross neurological examination did not reveal any focal deficits. - Labs CBC & Chem 7: 01/13/18 06:41 01/12/18 06:19 Labs: Abnormal Lab Results - Last 24 Hours (Table) 01/10/18 01/12/18 01/12/18 Range/Units 17:44 11:44 16:54 RBC (3.80-5.40) m/uL Hgb (11.4-16.0) gm/dL Hct (34.0-46.0) % PT (9.0-12.0) sec INR (<1.2) POC Glucose (mg/dL) 233 H 140 H (75-99) mg/dL Crossmatch See Detail 01/12/18 01/13/18 01/13/18 Range/Units 19:58 06:41 06:41 RBC 2.79 L (3.80-5.40) m/uL Hgb 8.0 L (11.4-16.0) gm/dL Hct 24.2 L (34.0-46.0) % PT 14.7 H (9.0-12.0) sec INR 1.6 H (<1.2) POC Glucose (mg/dL) 120 H (75-99) mg/dL Crossmatch Assessment and Plan Assessment: Right comminuted hip fracture, status post right hip intertrochanteric fracture closed reduction and intramedullary nailing fall Fever, attributed to multiple blankets on patient. R/O acute UTI, UA with micro -and chest x-ray ordered. Dementia, mostly Alzheimer dementia History of asthma Diabetes mellitus anemia, of chronic disease, possible acute postoperative blood loss anemia. Transfusion of 1 unit of packed RBCs. Ferritin level ordered, Further workup outpatient. Plan: Continue on current medication regime ,monitoring and symptomatic treatment. Discharge planning in progress for subacute rehab today as per surgery. Pain management, anticoagulation as per orthopedic surgery. Aggressive pulmonary toileting. Final urine culture results to be faxed to PCP at subacute rehab. Close monitoring of hemoglobin, with CBC BMP in 3 days ordered. The impression and plan of care has been dictated as directed. : I performed a history and examination of this patient, discussed the same with the dictator. I agree with the dictator's note ,documented as a scribe. Any additional findings or plans will be noted.
[2018-01-13 17:01] LABS: Glucose,Whole Blood 163 mg/dL (75-99)
[2018-01-13] MEDS: WARFARIN 1 MG TAB PO SCH (17:42)
== END 2018-01-13 18:34 | DRG 481 ==
LOC: EC 23:04 → 4SSUR 01-07 02:36
PROVIDERS: ADMIT Orthopaedic Surgery; ATTEND Orthopaedic Surgery
PROC: 0QS606Z Reposition Right Upper Femur with Intramedullary Internal Fixation Device, Open Approach (ICD-10-PCS; 2018-01-08)
PROC: 30233N1 Transfusion of Nonautologous Red Blood Cells into Peripheral Vein, Percutaneous Approach (ICD-10-PCS; principal; 2018-01-12)
DX: S72.141A Displaced intertrochanteric fracture of right femur, initial encounter for closed fracture (principal); D62 Acute posthemorrhagic anemia; W01.0XXA Fall on same level from slipping, tripping and stumbling without subsequent striking against object, initial encounter; D63.8 Anemia in other chronic diseases classified elsewhere; E11.9 Type 2 diabetes mellitus without complications; F02.80 Dementia in other diseases classified elsewhere, unspecified severity, without behavioral disturbance, psychotic disturbance, mood disturbance, and anxiety; F32.9 Major depressive disorder, single episode, unspecified; F41.9 Anxiety disorder, unspecified; G25.81 Restless legs syndrome; G30.9 Alzheimer's disease, unspecified; J45.909 Unspecified asthma, uncomplicated; K21.9 Gastro-esophageal reflux disease without esophagitis; M13.0 Polyarthritis, unspecified; Y92.129 Unspecified place in nursing home as the place of occurrence of the external cause; Z79.4 Long term (current) use of insulin; Z79.899 Other long term (current) drug therapy; Z82.49 Family history of ischemic heart disease and other diseases of the circulatory system; Z87.891 Personal history of nicotine dependence; Z89.422 Acquired absence of other left toe(s); Z90.49 Acquired absence of other specified parts of digestive tract; Z79.84 Long term (current) use of oral hypoglycemic drugs; Z88.1 Allergy status to other antibiotic agents; Z88.5 Allergy status to narcotic agent; I95.9 Hypotension, unspecified
CPT/HCPCS: 71045; 73502; 80048; 80053; 81001; 82550; 82553; 82728; 83605; 83735; 84484; 85025; 85610; 85730; 86850; 86900; 86901; 86920; 87077; 87086; 87186; 93005; 94640; 94760; 99285

== ENCOUNTER 2018-01-22 09:42 | Inpatient (IN) | payer OTHER ==
[2018-01-22] MEDS ORDERED: SODIUM CHLORIDE 0.9% 500 ML 500 ML IV ONE (09:46)
[2018-01-22] MEDS ORDERED: SODIUM CHLORIDE 0.9% 1,000 ML IV ONE (09:46)
--- NOTE | 2018-01-22 09:51 | ED ---
Altered Mental Status HPI - General Stated Complaint: altered mental status Time Seen by Provider: 01/22/18 09:42 Source: patient, EMS, RN notes reviewed, old records reviewed Mode of arrival: EMS - History of Present Illness Initial Comments: This is a 62-year-old female history dementia diabetes recent right hip surgery urinary tract infection the past month another medical issues who is brought in by EMS for evaluation for altered mental status and decreased level of consciousness. Patient apparently was last seen acting normal at dinner last evening at her facility. 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 No reports of trauma no fevers chills nausea vomiting sweats constipation diarrhea or other symptoms reported at this time. MD Complaint: altered mental status, decreased responsiveness - Related Data Home Medications Medication Instructions Recorded Confirmed DULoxetine HCL [Cymbalta] 60 mg PO DAILY@0800 10/11/16 01/22/18 busPIRone HCL [Buspar] 30 mg PO BID 10/11/16 01/22/18 Carbidopa-Levodopa 25-100 mg 1 tab PO Q12H 02/26/17 01/22/18 [Sinemet 25-100 mg] Ergocalciferol (Vitamin D2) 50,000 unit PO TU 09/03/17 01/22/18 [Vitamin D2] Magnesium Oxide 400 mg PO DAILY 09/03/17 01/22/18 Omeprazole [PriLOSEC] 20 mg PO BID 09/03/17 01/22/18 Acetaminophen [Tylenol] 650 mg PO Q8H PRN 01/06/18 01/22/18 Multivitamins, Thera [Multivitamin 1 tab PO DAILY 01/06/18 01/22/18 (formulary)] OLANZapine [ZyPREXA] 7.5 mg PO HS 01/06/18 01/22/18 metFORMIN HCL [Glucophage] 1,000 mg PO DAILY 01/06/18 01/22/18 metFORMIN HCL [Glucophage] 500 mg PO HS 01/06/18 01/22/18 Amino Acids/Protein Hydrolys 30 ml PO BID 01/22/18 01/22/18 [Pro-Stat Supplement] Fenofibrate,Micronized 134 mg PO DAILY 01/22/18 01/22/18 [Fenofibrate] INSULIN LISPRO (HumaLOG) [humaLOG] See Protocol SQ AC-BID 01/22/18 01/22/18 Sennosides-Docusate Sodium 2 tab PO HS 01/22/18 01/22/18 [Senokot-S] Warfarin Sodium [Coumadin] 2 mg PO FRSA 01/22/18 01/22/18 Warfarin [Coumadin] 1 mg PO SUMOTUWETH 01/22/18 01/22/18 Previous Rx's Medication Instructions Recorded Metoprolol Tartrate [Lopressor] 25 mg PO BID tab 09/30/17 traMADol HCl [Ultram] 50 mg PO Q6HR PRN #50 tab 01/13/18 Allergies Allergy/AdvReac Type Severity Reaction Status Date / Time amoxicillin Allergy Unknown Verified 01/22/18 11:22 azithromycin Allergy Unknown Verified 01/22/18 11:22 codeine Allergy Unknown Verified 01/22/18 11:22 erythromycin base Allergy Unknown Verified 01/22/18 11:22 [Erythromycin Base] Review of Systems ROS Statement: Those systems with pertinent positive or pertinent negative responses have been documented in the HPI. ROS Other: All systems not noted in ROS Statement are negative. 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 Past Psychological History: Anxiety, Depression Additional Psychological History / Comment(s): Pt resides alone. She has a cat. She no longer drives, she uses the bus. She manages her own medications. She goes to [facility] and sees Radha Darling. She states her mental health is stable at this time. She states in the past she has had suicidal thoughts but not for a long time now. Smoking Status: Former smoker Past Alcohol Use History: None Reported, Rare Additional Past Alcohol Use History / Comment(s): Pt smoked for one year, 1979- 1980. Past Drug Use History: None Reported - Past Family History Father Family Medical History: Coronary Artery Disease (CAD), Myocardial Infarction (CO ) Additional Family Medical History / Comment(s): Father of a CO at the age of 70yrs. Mother Family Medical History: Liver Disease Additional Family Medical History / Comment(s): Mother from alcoholic liver cirrhosis in her early 70s. General Exam - General Exam Comments Initial Comments: This a well-developed asthenic appearing female who does demonstrate lethargy and slow response she does speak to me upon questioning Limitations: altered mental status, physical limitation General appearance: alert, lethargic Head exam: Present: atraumatic, normocephalic, normal inspection Eye exam: Present: other (Left thigh deviates slightly laterally compared to the midline right eye pupils appear to be equal and reactive) ENT exam: Present: mucous membranes dry Neck exam: Present: normal inspection, other (No stridor JVD or bruits). Absent : tenderness, meningismus, lymphadenopathy Respiratory exam: Present: normal lung sounds bilaterally. Absent: respiratory distress, wheezes, rales, rhonchi, stridor Cardiovascular Exam: Present: regular rate, normal rhythm, normal heart sounds. Absent: systolic murmur, diastolic murmur, rubs, gallop, clicks GI/Abdominal exam: Present: soft, normal bowel sounds. Absent: distended, tenderness, guarding, rebound, rigid Extremities exam: Present: normal inspection, full ROM, normal capillary refill. Absent: tenderness, pedal edema, joint swelling, calf tenderness Back exam: Present: normal inspection Neurological exam: Present: alert, altered, CN II-XII intact Psychiatric exam: Present: normal affect, normal mood Skin exam: Present: warm, dry, intact, normal color. Absent: rash Course Vital Signs 01/22/18 01/22/18 01/22/18 10:03 10:30 12:30 Temperature 97.6 F Pulse Rate 92 98 110 H Respiratory 20 18 20 Rate Blood Pressure 108/57 114/61 115/66 O2 Sat by Pulse 99 100 Oximetry 01/22/18 01/22/18 13:01 13:17 Temperature Pulse Rate 110 H 107 H Respiratory 20 18 Rate Blood Pressure 124/71 147/66 O2 Sat by Pulse Oximetry - Reevaluation(s) Reevaluation #1: 01/22/18 14:43 Reevaluation patient reveals patient be easily arousable and alert confused she is not able to follow instructions. Her NIH stroke scale was 5 I believe this is secondary to dementia and inability to understand the commands being given move her extremities squeeze my hands do that aspect of the exam when asked by me. Medical Decision Making - Medical Decision Making Did discuss the case with Dr. Montano. Patient be admitted with evaluation by neurology evidence of dehydration and UTI TIA versus stroke. - Lab Data Result diagrams: 01/22/18 09:58 01/22/18 09:58 Lab Results 01/22/18 01/22/18 01/22/18 Range/Units 09:58 09:58 09:58 WBC 9.4 (3.8-10.6) k/uL RBC 3.43 L (3.80-5.40) m/uL Hgb 9.6 L (11.4-16.0) gm/dL Hct 30.1 L (34.0-46.0) % MCV 87.6 (80.0-100.0) fL MCH 27.9 (25.0-35.0) pg MCHC 31.8 (31.0-37.0) g/dL RDW 14.7 (11.5-15.5) % Plt Count 443 (150-450) k/uL Neutrophils % 68 % Lymphocytes % 25 % Monocytes % 5 % Eosinophils % 0 % Basophils % 1 % Neutrophils # 6.4 (1.3-7.7) k/uL Lymphocytes # 2.3 (1.0-4.8) k/uL Monocytes # 0.5 (0-1.0) k/uL Eosinophils # 0.0 (0-0.7) k/uL Basophils # 0.1 (0-0.2) k/uL Hypochromasia Moderate PT (9.0-12.0) sec INR (<1.2) APTT (22.0-30.0) sec Sodium (137-145) mmol/L Potassium (3.5-5.1) mmol/L Chloride (98-107) mmol/L Carbon Dioxide (22-30) mmol/L Anion Gap mmol/L BUN (7-17) mg/dL Creatinine (0.52-1.04) mg/dL Est GFR (CKD-EPI)AfAm (>60 ml/min/1.73 sqM) Est GFR (CKD-EPI)NonAf (>60 ml/min/1.73 sqM) Glucose (74-99) mg/dL POC Glucose (mg/dL) (75-99) mg/dL POC Glu Glass Presser ID Calcium (8.4-10.2) mg/dL Total Bilirubin (0.2-1.3) mg/dL AST (14-36) U/L ALT (9-52) U/L Alkaline Phosphatase (38-126) U/L Ammonia 9 (<30) umol/L Total Creatine Kinase 27 L (30-135) U/L CK-MB (CK-2) 0.7 (0.0-2.4) ng/mL CK-MB (CK-2) Rel Index 2.6 Troponin I <0.012 (0.000-0.034) ng/mL Total Protein (6.3-8.2) g/dL Albumin (3.5-5.0) g/dL Urine Color Urine Appearance (Clear) Urine pH (5.0-8.0) Ur Specific Spencer (1.001-1.035) Urine Protein (Negative) Urine Glucose (UA) (Negative) Urine Ketones (Negative) Urine Blood (Negative) Urine Nitrite (Negative) Urine Bilirubin (Negative) Urine Urobilinogen (<2.0) mg/dL Ur Leukocyte Esterase (Negative) Urine RBC (0-5) /hpf Urine WBC (0-5) /hpf Urine WBC Clumps (None) /hpf Urine Bacteria (None) /hpf Urine Yeast (Budding) (None) /hpf Stool Occult Blood (Negative) Urine Opiates Screen (NotDetected) Ur Oxycodone Screen (NotDetected) Urine Methadone Screen (NotDetected) Ur Propoxyphene Screen (NotDetected) Ur Barbiturates Screen (NotDetected) U Tricyclic Antidepress (NotDetected) Ur Phencyclidine Scrn (NotDetected) Ur Amphetamines Screen (NotDetected) U Methamphetamines Scrn (NotDetected) U Benzodiazepines Scrn (NotDetected) Urine Cocaine Screen (NotDetected) U Marijuana (THC) Screen (NotDetected) 01/22/18 01/22/18 01/22/18 Range/Units 09:58 09:58 10:29 WBC (3.8-10.6) k/uL RBC (3.80-5.40) m/uL Hgb (11.4-16.0) gm/dL Hct (34.0-46.0) % MCV (80.0-100.0) fL MCH (25.0-35.0) pg MCHC (31.0-37.0) g/dL RDW (11.5-15.5) % Plt Count (150-450) k/uL Neutrophils % % Lymphocytes % % Monocytes % % Eosinophils % % Basophils % % Neutrophils # (1.3-7.7) k/uL Lymphocytes # (1.0-4.8) k/uL Monocytes # (0-1.0) k/uL Eosinophils # (0-0.7) k/uL Basophils # (0-0.2) k/uL Hypochromasia PT 12.8 H (9.0-12.0) sec INR 1.4 H (<1.2) APTT 23.1 (22.0-30.0) sec Sodium 139 (137-145) mmol/L Potassium 3.8 (3.5-5.1) mmol/L Chloride 105 (98-107) mmol/L Carbon Dioxide 26 (22-30) mmol/L Anion Gap 8 mmol/L BUN 34 H (7-17) mg/dL Creatinine 0.97 (0.52-1.04) mg/dL Est GFR (CKD-EPI)AfAm 73 (>60 ml/min/1.73 sqM) Est GFR (CKD-EPI)NonAf 63 (>60 ml/min/1.73 sqM) Glucose 100 H (74-99) mg/dL POC Glucose (mg/dL) 92 (75-99) mg/dL POC Glu Glass Presser ID Jessica Bailey Calcium 10.5 H (8.4-10.2) mg/dL Total Bilirubin 0.5 (0.2-1.3) mg/dL AST 15 (14-36) U/L ALT 15 (9-52) U/L Alkaline Phosphatase 57 (38-126) U/L Ammonia (<30) umol/L Total Creatine Kinase (30-135) U/L CK-MB (CK-2) (0.0-2.4) ng/mL CK-MB (CK-2) Rel Index Troponin I (0.000-0.034) ng/mL Total Protein 6.0 L (6.3-8.2) g/dL Albumin 2.8 L (3.5-5.0) g/dL Urine Color Urine Appearance (Clear) Urine pH (5.0-8.0) Ur Specific Spencer (1.001-1.035) Urine Protein (Negative) Urine Glucose (UA) (Negative) Urine Ketones (Negative) Urine Blood (Negative) Urine Nitrite (Negative) Urine Bilirubin (Negative) Urine Urobilinogen (<2.0) mg/dL Ur Leukocyte Esterase (Negative) Urine RBC (0-5) /hpf Urine WBC (0-5) /hpf Urine WBC Clumps (None) /hpf Urine Bacteria (None) /hpf Urine Yeast (Budding) (None) /hpf Stool Occult Blood (Negative) Urine Opiates Screen (NotDetected) Ur Oxycodone Screen (NotDetected) Urine Methadone Screen (NotDetected) Ur Propoxyphene Screen (NotDetected) Ur Barbiturates Screen (NotDetected) U Tricyclic Antidepress (NotDetected) Ur Phencyclidine Scrn (NotDetected) Ur Amphetamines Screen (NotDetected) U Methamphetamines Scrn (NotDetected) U Benzodiazepines Scrn (NotDetected) Urine Cocaine Screen (NotDetected) U Marijuana (THC) Screen (NotDetected) 01/22/18 01/22/18 Range/Units 12:38 12:38 WBC (3.8-10.6) k/uL RBC (3.80-5.40) m/uL Hgb (11.4-16.0) gm/dL Hct (34.0-46.0) % MCV (80.0-100.0) fL MCH (25.0-35.0) pg MCHC (31.0-37.0) g/dL RDW (11.5-15.5) % Plt Count (150-450) k/uL Neutrophils % % Lymphocytes % % Monocytes % % Eosinophils % % Basophils % % Neutrophils # (1.3-7.7) k/uL Lymphocytes # (1.0-4.8) k/uL Monocytes # (0-1.0) k/uL Eosinophils # (0-0.7) k/uL Basophils # (0-0.2) k/uL Hypochromasia PT (9.0-12.0) sec INR (<1.2) APTT (22.0-30.0) sec Sodium (137-145) mmol/L Potassium (3.5-5.1) mmol/L Chloride (98-107) mmol/L Carbon Dioxide (22-30) mmol/L Anion Gap mmol/L BUN (7-17) mg/dL Creatinine (0.52-1.04) mg/dL Est GFR (CKD-EPI)AfAm (>60 ml/min/1.73 sqM) Est GFR (CKD-EPI)NonAf (>60 ml/min/1.73 sqM) Glucose (74-99) mg/dL POC Glucose (mg/dL) (75-99) mg/dL POC Glu Glass Presser ID Calcium (8.4-10.2) mg/dL Total Bilirubin (0.2-1.3) mg/dL AST (14-36) U/L ALT (9-52) U/L Alkaline Phosphatase (38-126) U/L Ammonia (<30) umol/L Total Creatine Kinase (30-135) U/L CK-MB (CK-2) (0.0-2.4) ng/mL CK-MB (CK-2) Rel Index Troponin I (0.000-0.034) ng/mL Total Protein (6.3-8.2) g/dL Albumin (3.5-5.0) g/dL Urine Color Yellow Urine Appearance Cloudy H (Clear) Urine pH 5.0 (5.0-8.0) Ur Specific Spencer 1.016 (1.001-1.035) Urine Protein Trace H (Negative) Urine Glucose (UA) Negative (Negative) Urine Ketones Negative (Negative) Urine Blood Negative (Negative) Urine Nitrite Negative (Negative) Urine Bilirubin Negative (Negative) Urine Urobilinogen <2.0 (<2.0) mg/dL Ur Leukocyte Esterase Large H (Negative) Urine RBC 29 H (0-5) /hpf Urine WBC 55 H (0-5) /hpf Urine WBC Clumps Occasional H (None) /hpf Urine Bacteria Many H (None) /hpf Urine Yeast (Budding) Many H (None) /hpf Stool Occult Blood Negative (Negative) Urine Opiates Screen Not Detected (NotDetected) Ur Oxycodone Screen Not Detected (NotDetected) Urine Methadone Screen Not Detected (NotDetected) Ur Propoxyphene Screen Not Detected (NotDetected) Ur Barbiturates Screen Not Detected (NotDetected) U Tricyclic Antidepress Not Detected (NotDetected) Ur Phencyclidine Scrn Not Detected (NotDetected) Ur Amphetamines Screen Not Detected (NotDetected) U Methamphetamines Scrn Not Detected (NotDetected) U Benzodiazepines Scrn Not Detected (NotDetected) Urine Cocaine Screen Not Detected (NotDetected) U Marijuana (THC) Screen Not Detected (NotDetected) - EKG Data -: EKG Interpreted by Me EKG shows normal: sinus rhythm (Sinus rhythm a 91 appear interval 140 QRS duration 72 QT since QTC 360/[address]-T wave changes) - Radiology Data Radiology results: report reviewed (I did review the imaging and report no acute findings.), image reviewed Disposition Clinical Impression: Delirium due to general medical condition, Dehydration Disposition: ADMITTED IP TO THIS [facility] Condition: Stable Referrals: Mark Mendoza DO [Primary Care Provider] - 1-2 days
[2018-01-22 10:31] LABS: Glucose,Whole Blood 92 mg/dL (75-99)
[2018-01-22 10:38] LABS: Basophils # (A) 0.1 k/uL (0-0.2); Basophils % (A) 1 %; Eosinophils % (A) 0 %; HCT 30.1 % (34.0-46.0); HGB 9.6 gm/dL (11.4-16.0); Hypochromasia Moderate; Lymphocytes # (A) 2.3 k/uL (1.0-4.8); Lymphocytes % (A) 25 %; MCH 27.9 pg (25.0-35.0); MCHC 31.8 g/dL (31.0-37.0); MCV 87.6 fL (80.0-100.0); Mean Platelet Volume 6.5; Monocytes # (A) 0.5 k/uL (0-1.0); Monocytes % (A) 5 %; Neutrophils # (A) 6.4 k/uL (1.3-7.7); Neutrophils % (A) 68 %; Platelet Count 443 k/uL (150-450); RBC 3.43 m/uL (3.80-5.40); RDW 14.7 % (11.5-15.5); WBC 9.4 k/uL (3.8-10.6)
[2018-01-22 10:47] LABS: INR 1.4 (<1.2); Partial Thromboplastin Time 23.1 sec (22.0-30.0); Prothrombin Time 12.8 sec (9.0-12.0)
[2018-01-22 10:52] LABS: Albumin 2.8 g/dL (3.5-5.0); Calcium 10.5 mg/dL (8.4-10.2); Potassium 3.8 mmol/L (3.5-5.1); Total Bilirubin 0.5 mg/dL (0.2-1.3)
[2018-01-22 11:02] LABS: Creatine Kinase 27 U/L (30-135)
--- NOTE | 2018-01-22 11:06 | CT ---
EXAMINATION TYPE: CT brain wo con DATE OF EXAM: 01/22/2018 COMPARISON: 09/25/2017 HISTORY: Altered mental status CT DLP: 1233.[address] of the brain was performed. The ventricles, basal cisterns and sulci overlying the cerebral convexities demonstrate mild to moder ate enlargement. There is no evidence for intracranial hemorrhage or sulcal effacement. There is decreased attenuation about the periventricular white matter and deep white matter of both c erebral hemispheres, compatible with chronic small vessel ischemia. Differential diagnosis does inclu de demyelination. No mass effects are seen.No midline shift. Osseous calvarium is intact. If symptoms persist consider MRI. IMPRESSION: 1. Age related atrophic and chronic small vessel ischemic change without acute intracranial process s een at this time.
[2018-01-22 11:14] LABS: Creatine Kinase MB 0.7 ng/mL (0.0-2.4); Troponin I <0.012 ng/mL (0.000-0.034)
--- NOTE | 2018-01-22 13:08 | XR ---
EXAMINATION TYPE: XR chest 2V DATE OF EXAM: 01/22/2018 COMPARISON: 01/13/2018 HISTORY: Shortness of breath TECHNIQUE: Frontal and lateral views of the chest are obtained. FINDINGS: Scattered senescent parenchymal changes noted. Bronchial wall thickening may reflect chronic bronchitis. No evidence for infiltrate. No evidence for atelectasis. Heart size is stable. Mediastinal structures are stable and grossly unremarkable. No evidence for hilar prominence. Degenerative changes dorsal spine. IMPRESSION: 1. Bronchial wall thickening may reflect chronic bronchitis.
[2018-01-22 13:23] LABS: Amphetamine Screen,Urine Not Detected (NotDetected); Barbiturate Screen,Urine Not Detected (NotDetected); Benzodiazepines Screen,Urine Not Detected (NotDetected); Cocaine Screen,Urine Not Detected (NotDetected); Methadone Screen, Urine Not Detected (NotDetected); Opiate Screen,Urine Not Detected (NotDetected); Oxycodone Screen, Urine Not Detected (NotDetected); Phencyclidine Screen,Urine Not Detected (NotDetected); Tricyclic Antidepressant,Urine Not Detected (NotDetected); Urn Cannabinoid Scrn Not Detected (NotDetected)
[2018-01-22 13:27] LABS: Appearance,Urine Cloudy (Clear); Bacteria,Urine Many /hpf; Bilirubin,Urine Negative (Negative); Blood,Urine Negative (Negative); Budding Yeast,Urine Many /hpf; Color,Urine Yellow; Glucose,Urine (UA) Negative (Negative); Ketones,Urine Negative (Negative); Leukocyte Esterase,Urine Large (Negative); Nitrite,Urine Negative (Negative); Protein,Urine Trace (Negative); RBC,Urine 29 /hpf (0-5); Specific Gravity,Urine 1.016 (1.001-1.035); Urobilinogen,Urine <2.0 mg/dL (<2.0); WBC,Urine 55 /hpf (0-5)
[2018-01-22] MEDS ORDERED: ACETAMINOPHEN TAB 325 MG TAB PO PRN (14:50)
[2018-01-22] MEDS: SODIUM CHLORIDE 0.9% 1,000 ML IV SCH ×2 (15:35→20:06)
[2018-01-22 17:46] LABS: Glucose,Whole Blood 187 mg/dL (75-99)
[2018-01-22 18:07] VITALS: BMI 26.9
[2018-01-22] MEDS: INSULIN ASPART 100 UNIT/ML 1 ML 10 ML VIAL SQ SCH ×2 (18:12→22:08)
[2018-01-22] MEDS: PANTOPRAZOLE 40 MG TABLET PO SCH (18:12)
[2018-01-22] MEDS: CARBIDOPA-LEVODOPA 25-100 MG 1 EACH TAB PO SCH (19:16)
[2018-01-22] MEDS: WARFARIN 2 MG TAB PO SCH (19:17)
[2018-01-22 20:18] LABS: Glucose,Whole Blood 213 mg/dL (75-99)
[2018-01-22] MEDS ORDERED: NON-FORMULARY DRUG (Amino Acids/Protein Hydrolys [Pro-Stat Supplement] 30 ML) PO SCH (21:00)
[2018-01-22] MEDS: SODIUM CHLORIDE 0.9% 250 ML IV SCH ×4 (21:22→23:03)
[2018-01-22] MEDS: METOPROLOL TARTRATE 25 MG TAB PO SCH (22:04)
[2018-01-22] MEDS: metFORMIN 500 MG TAB PO SCH (22:08)
[2018-01-22] MEDS: SENNOSIDES-DOCUSATE SODIUM 1 EACH TAB PO SCH (22:09)
[2018-01-22] MEDS: OLANZapine 2.5 MG TAB PO SCH (22:33)
[2018-01-22] MEDS: busPIRone HCl 10 MG TAB PO SCH (22:33)
[2018-01-22] MEDS ORDERED: METOPROLOL TARTRATE 5 MG/5 ML VIAL IVP PRN (23:22)
--- NOTE | 2018-01-23 00:01 | XR ---
EXAMINATION TYPE: XR chest 1V portable DATE OF EXAM: 01/22/2018 COMPARISON: Today HISTORY: Cough TECHNIQUE: Single frontal view of the chest is obtained. FINDINGS: There is poor aspiration. There is probably some infiltrate in the left lower lobe. Heart size is normal. There is no heart failure. There are chest leads. IMPRESSION: Inspiration is much less than exam earlier today. Possible minimal left lower lobe infil trate.
[2018-01-23] MEDS: DOXYCYCLINE 100 MG in SODIUM CHLORIDE 0.9% 100 ML IVPB SCH ×2 (01:10→12:24)
[2018-01-23] MEDS: CARBIDOPA-LEVODOPA 25-100 MG 1 EACH TAB PO SCH ×2 (04:10→17:50)
[2018-01-23 04:11] LABS: Glucose,Whole Blood 142 mg/dL (75-99)
[2018-01-23 07:14] LABS: Glucose,Whole Blood 181 mg/dL (75-99)
[2018-01-23 07:34] LABS: Anion Gap 7 mmol/L; Blood Urea Nitrogen 21 mg/dL (7-17); Calcium 9.4 mg/dL (8.4-10.2); Carbon Dioxide 20 mmol/L (22-30); Chloride 113 mmol/L (98-107); Cholesterol 96 mg/dL (<200); Glucose 160 mg/dL (74-99); HDL Cholesterol 37 mg/dL (40-60); LDL Cholesterol,Calculated 40 mg/dL (0-99); Potassium 4.1 mmol/L (3.5-5.1); Sodium 140 mmol/L (137-145); Triglycerides 95 mg/dL (<150)
[2018-01-23] MEDS: MAGNESIUM OXIDE 400 MG TAB PO SCH (07:36)
[2018-01-23] MEDS: FENOFIBRATE 160 MG TAB PO SCH (07:36)
[2018-01-23] MEDS: metFORMIN 500 MG TAB PO SCH ×2 (07:36→21:04)
[2018-01-23] MEDS: PANTOPRAZOLE 40 MG TABLET PO SCH (07:36)
[2018-01-23] MEDS: busPIRone HCl 10 MG TAB PO SCH ×2 (07:36→21:04)
[2018-01-23] MEDS: DULoxetine HCL 60 MG CAPSULE.DR PO SCH (07:36)
[2018-01-23] MEDS: MULTIVITAMINS, THERA 1 EACH TAB PO SCH (07:37)
[2018-01-23 07:40] LABS: INR 1.5 (<1.2); Prothrombin Time 14.1 sec (9.0-12.0)
[2018-01-23] MEDS: INSULIN ASPART 100 UNIT/ML 1 ML 10 ML VIAL SQ SCH ×4 (07:46→21:59)
[2018-01-23] MEDS: SODIUM CHLORIDE 0.9% 1,000 ML IV SCH (11:11)
[2018-01-23] MEDS: METOPROLOL TARTRATE 25 MG TAB PO SCH ×2 (11:11→21:03)
[2018-01-23 11:26] LABS: Glucose,Whole Blood 156 mg/dL (75-99)
[2018-01-23 12:18] LABS: Basophils % (A) 0 %; Eosinophils % (A) 0 %; HCT 26.6 % (34.0-46.0); HGB 8.4 gm/dL (11.4-16.0); Hypochromasia Marked; Lymphocytes # (A) 1.2 k/uL (1.0-4.8); Lymphocytes % (A) 17 %; MCH 28.3 pg (25.0-35.0); MCHC 31.4 g/dL (31.0-37.0); MCV 89.9 fL (80.0-100.0); Mean Platelet Volume 6.4; Monocytes # (A) 0.4 k/uL (0-1.0); Monocytes % (A) 5 %; Neutrophils # (A) 5.3 k/uL (1.3-7.7); Neutrophils % (A) 76 %; Platelet Count 324 k/uL (150-450); RBC 2.96 m/uL (3.80-5.40); RDW 14.6 % (11.5-15.5); WBC 6.9 k/uL (3.8-10.6)
--- NOTE | 2018-01-23 17:11 | P.CNNES ---
History of Present Illness Consult date: 01/23/18 Requesting physician: Teo Nuñez Reason for Consult: Altered mental status History of Present Illness: Patient is a 62-year-old female who is being evaluated by the neurology service on 01/23/2018 per the request of Dr. Nuñez for altered mental status. Patient has a significant history of dementia, Parkinson's disease, diabetes, recent right hip surgery, asthma and vascular disorder. Patient also has a history of chronic atrial fibrillation on warfarin. EKG shows sinus rhythm this admission. Currently, patient is nothing by mouth for a swallow eval to be done in the morning. Patient was in rehab facility for therapy for recently repaired right hip. Patient became lethargic and confused. EMS was called to transport patient to [facility] for evaluation. Computed tomography scan of the brain showed age-related atrophic and chronic small vessel ischemic changes. No acute intracranial process was seen. Patient vital signs on admission were temp 97.6, pulse 92, respiratory rate 20, blood pressure 108/57, and oxygen saturation was 99% on room air. Labs on admission showed hemoglobin of 9.6, hematocrit 30.1, INR 1.4, BUN 34, creatinine 0.97, and low total protein and albumin. UA revealed a urinary tract infection. At the time of my evaluation, patient continues to be lethargic but answers questions appropriately and follows commands. Patient does not appear to be in any acute distress. Review of Systems REVIEW OF SYSTEMS: Otherwise unremarkable and noncontributory. 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 Past Psychological History: Anxiety, Depression Smoking Status: Former smoker Past Alcohol Use History: None Reported, Rare Additional Past Alcohol Use History / Comment(s): Pt smoked for one year, 1979- 1980. Past Drug Use History: None Reported - Past Family History Father Family Medical History: Coronary Artery Disease (CAD), Myocardial Infarction (ID ) Additional Family Medical History / Comment(s): Father of a ID at the age of 70yrs. Mother Family Medical History: Liver Disease Additional Family Medical History / Comment(s): Mother from alcoholic liver cirrhosis in her early 70s. Medications and Allergies Home Medications Medication Instructions Recorded Confirmed Type DULoxetine HCL [Cymbalta] 60 mg PO DAILY@0800 10/11/16 01/22/18 History busPIRone HCL [Buspar] 30 mg PO BID 10/11/16 01/22/18 History Carbidopa-Levodopa 25-100 mg 1 tab PO Q12H 02/26/17 01/22/18 History [Sinemet 25-100 mg] Ergocalciferol (Vitamin D2) 50,000 unit PO TU 09/03/17 01/22/18 History [Vitamin D2] Magnesium Oxide 400 mg PO DAILY 09/03/17 01/22/18 History Omeprazole [PriLOSEC] 20 mg PO BID 09/03/17 01/22/18 History Metoprolol Tartrate [Lopressor] 25 mg PO BID tab 09/30/17 01/22/18 Rx Acetaminophen [Tylenol] 650 mg PO Q8H PRN 01/06/18 01/22/18 History Multivitamins, Thera [Multivitamin 1 tab PO DAILY 01/06/18 01/22/18 History (formulary)] OLANZapine [ZyPREXA] 7.5 mg PO HS 01/06/18 01/22/18 History metFORMIN HCL [Glucophage] 1,000 mg PO DAILY 01/06/18 01/22/18 History metFORMIN HCL [Glucophage] 500 mg PO HS 01/06/18 01/22/18 History traMADol HCl [Ultram] 50 mg PO Q6HR PRN #50 tab 01/13/18 01/22/18 Rx Amino Acids/Protein Hydrolys 30 ml PO BID 01/22/18 01/22/18 History [Pro-Stat Supplement] Fenofibrate,Micronized 134 mg PO DAILY 01/22/18 01/22/18 History [Fenofibrate] INSULIN LISPRO (HumaLOG) [humaLOG] See Protocol SQ AC-BID 01/22/18 01/22/18 History Sennosides-Docusate Sodium 2 tab PO HS 01/22/18 01/22/18 History [Senokot-S] Warfarin Sodium [Coumadin] 2 mg PO FRSA 01/22/18 01/22/18 History Warfarin [Coumadin] 1 mg PO SUMOTUWETH 01/22/18 01/22/18 History Allergies Allergy/AdvReac Type Severity Reaction Status Date / Time amoxicillin Allergy Unknown Verified 01/22/18 11:22 azithromycin Allergy Unknown Verified 01/22/18 11:22 codeine Allergy Unknown Verified 01/22/18 11:22 erythromycin base Allergy Unknown Verified 01/22/18 11:22 [Erythromycin Base] Physical Examination - Vital Signs Vital Signs: Vital Signs Temp Pulse Pulse Pulse Resp BP Pulse Ox 01/23/18 15:48 98.1 F 99 16 118/68 98 01/23/18 15:32 111 H 135 H 111 H 16 01/23/18 14:13 98.3 F 111 H 16 126/52 98 01/23/18 13:00 98.3 F 111 H 16 126/52 98 01/23/18 11:48 98.0 F 108 H 16 126/52 99 01/23/18 09:48 98.5 F 106 H 16 118/56 96 01/23/18 08:00 104 H 01/23/18 07:48 99.0 F 135 H 16 121/78 100 01/23/18 05:55 97.9 F 101 H 16 136/61 100 01/23/18 03:48 97.8 F 104 H 12 110/56 100 01/23/18 01:48 98.3 F 101 H 14 112/57 100 01/23/18 00:18 102 H 104/58 01/23/18 00:12 98 95/52 100 01/23/18 00:00 98 107/57 01/22/18 23:56 95 90/51 01/22/18 23:52 97 94/53 100 01/22/18 23:49 115 H 111/61 01/22/18 23:46 126 H 97/56 01/22/18 22:44 134 H 14 133/64 100 01/22/18 22:37 131 H 115/62 01/22/18 20:52 97.8 F 130 H 16 103/57 100 01/22/18 20:14 97.8 F 125 H 12 102/55 100 Intake and Output 01/23/18 01/23/18 01/23/18 06:59 14:59 22:59 Intake Total 900 1210 Balance 900 1210 Intake: Intake, IV Titration 900 1200 Amount Doxycycline 100 mg In 100 100 Sodium Chloride 0.9% 100 ml @ 100 mls/hr IVPB Q12H [facility] Rx#:[id number] Sodium Chloride 0.9% 1, 800 1050 000 ml @ 100 mls/hr IV . Q10H [facility] Rx#:[id number] cefTRIAXone 1,000 mg In 50 Sodium Chloride 0.9% 50 ml @ 100 mls/hr IVPB Q12HR [facility] Rx#:[id number] Oral 10 Other: Voiding Method Diaper Diaper Diaper Incontinent Incontinent Incontinent # Voids 2 3 Weight 66.9 kg 66.9 kg PHYSICAL EXAM: GENERAL APPEARANCE: Patient is a well-developed, female who appears to be in no acute distress. HEENT: Normocephalic, atraumatic, no facial asymmetry is seen. Neck is supple with no masses felt. CARDIOVASCULAR: Regular rate and rhythm. ABDOMEN: Nontender, nondistended. EXTREMITIES: Show no edema or clubbing. NEUROLOGICAL EXAM: Patient is awake, lethargic, and oriented 2. Patient states the year is 2019. Speech is slowed due to lethargy. Language is normal. Strength is 5-/5 in bilateral upper extremities and shows significant weakness in bilateral lower extremities. Right lower extremity with recent hip repair. Sensory exam to light touch is normal on all 4 extremities. No facial asymmetry is seen on cranial nerve testing. Patient has history of lazy eye on the right. No tremors or seizure-like activity noted. Results - Laboratory Findings CBC and BMP: 01/23/18 11:22 01/23/18 06:59 Abnormal Lab Findings: Abnormal Labs 01/22/18 01/22/18 01/22/18 09:58 09:58 09:58 RBC 3.43 L Hgb 9.6 L Hct 30.1 L PT INR Chloride Carbon Dioxide BUN 34 H Glucose 100 H POC Glucose (mg/dL) Calcium 10.5 H Total Creatine Kinase 27 L Total Protein 6.0 L Albumin 2.8 L HDL Cholesterol Urine Appearance Urine Protein Ur Leukocyte Esterase Urine RBC Urine WBC Urine WBC Clumps Urine Bacteria Urine Yeast (Budding) 01/22/18 01/22/18 01/22/18 09:58 12:38 17:44 RBC Hgb Hct PT 12.8 H INR 1.4 H Chloride Carbon Dioxide BUN Glucose POC Glucose (mg/dL) 187 H Calcium Total Creatine Kinase Total Protein Albumin HDL Cholesterol Urine Appearance Cloudy H Urine Protein Trace H Ur Leukocyte Esterase Large H Urine RBC 29 H Urine WBC 55 H Urine WBC Clumps Occasional H Urine Bacteria Many H Urine Yeast (Budding) Many H 01/22/18 01/23/18 01/23/18 20:17 03:58 06:59 RBC Hgb Hct PT INR Chloride 113 H Carbon Dioxide 20 L BUN 21 H Glucose 160 H POC Glucose (mg/dL) 213 H 142 H Calcium Total Creatine Kinase Total Protein Albumin HDL Cholesterol 37 L Urine Appearance Urine Protein Ur Leukocyte Esterase Urine RBC Urine WBC Urine WBC Clumps Urine Bacteria Urine Yeast (Budding) 01/23/18 01/23/18 01/23/18 06:59 07:13 11:22 RBC 2.96 L Hgb 8.4 L Hct 26.6 L PT 14.1 H INR 1.5 H Chloride Carbon Dioxide BUN Glucose POC Glucose (mg/dL) 181 H Calcium Total Creatine Kinase Total Protein Albumin HDL Cholesterol Urine Appearance Urine Protein Ur Leukocyte Esterase Urine RBC Urine WBC Urine WBC Clumps Urine Bacteria Urine Yeast (Budding) 01/23/18 11:25 RBC Hgb Hct PT INR Chloride Carbon Dioxide BUN Glucose POC Glucose (mg/dL) 156 H Calcium Total Creatine Kinase Total Protein Albumin HDL Cholesterol Urine Appearance Urine Protein Ur Leukocyte Esterase Urine RBC Urine WBC Urine WBC Clumps Urine Bacteria Urine Yeast (Budding) Assessment and Plan Plan: Impression: 1. Altered mental status 2. Infectious/metabolic encephalopathy 3. Dehydration 4. UTI 5. Dementia 6. History of A. fib 7. History of CVA 8. Parkinson's disease Recommendation: It does appear patient has decreased mentation but is almost back to baseline. It is likely patient's altered mental status is related to dehydration and urinary tract infection. Patient is more awake and alert and conversant today after fluids were initiated and antibiotics were initiated. Computed tomography scan of the brain showed no acute abnormality. Patient has no obvious lateralizing weakness. Right lower extremity is weaker due to recent hip repair. She does not present as cerebrovascular accident. I doubt this is any seizure activity as patient does not have history of seizures. No further neurological workup is warranted at this time. Patient is stable from a neurological standpoint. Any changes in neurological status I would recommend a stat brain CT. Continue neurological checks. I expect patient mentation to improve with fluids and antibiotics. I will continue to follow with you on an as-needed basis. Thank you for allowing me to participate in the care of your patient. Feel free to call with any questions or concerns. I performed an examination of the patient and discussed the management with the CONCRETE GUN OPERATOR. I have reviewed the CONCRETE GUN OPERATOR notes and agree with the findings and plan of care.
[2018-01-23 17:26] LABS: Glucose,Whole Blood 141 mg/dL (75-99)
[2018-01-23] MEDS: WARFARIN 2 MG TAB PO SCH (17:50)
[2018-01-23] MEDS: SENNOSIDES-DOCUSATE SODIUM 1 EACH TAB PO SCH (21:04)
[2018-01-23] MEDS: OLANZapine 2.5 MG TAB PO SCH (21:04)
[2018-01-23 21:55] LABS: Glucose,Whole Blood 114 mg/dL (75-99)
[2018-01-24] MEDS: SODIUM CHLORIDE 0.9% 1,000 ML IV SCH ×3 (05:03→17:35)
[2018-01-24] MEDS: CARBIDOPA-LEVODOPA 25-100 MG 1 EACH TAB PO SCH ×2 (05:03→17:35)
[2018-01-24 07:20] LABS: Basophils % (A) 0 %; Eosinophils % (A) 0 %; HCT 29.8 % (34.0-46.0); HGB 9.2 gm/dL (11.4-16.0); Hypochromasia Marked; Lymphocytes # (A) 1.7 k/uL (1.0-4.8); Lymphocytes % (A) 23 %; MCH 28.2 pg (25.0-35.0); MCHC 30.8 g/dL (31.0-37.0); MCV 91.8 fL (80.0-100.0); Mean Platelet Volume 7.1; Monocytes # (A) 0.5 k/uL (0-1.0); Monocytes % (A) 7 %; Neutrophils # (A) 4.9 k/uL (1.3-7.7); Neutrophils % (A) 68 %; Platelet Count 322 k/uL (150-450); Poikilocytosis Slight; RBC 3.25 m/uL (3.80-5.40); RDW 14.4 % (11.5-15.5); WBC 7.3 k/uL (3.8-10.6)
[2018-01-24 07:28] LABS: Anion Gap 10 mmol/L; Blood Urea Nitrogen 12 mg/dL (7-17); Calcium 9.7 mg/dL (8.4-10.2); Carbon Dioxide 20 mmol/L (22-30); Chloride 112 mmol/L (98-107); Glucose 105 mg/dL (74-99); Potassium 3.8 mmol/L (3.5-5.1); Sodium 142 mmol/L (137-145)
[2018-01-24 07:37] LABS: Glucose,Whole Blood 120 mg/dL (75-99)
[2018-01-24] MEDS: INSULIN ASPART 100 UNIT/ML 1 ML 10 ML VIAL SQ SCH ×4 (07:44→20:56)
[2018-01-24] MEDS: METOPROLOL TARTRATE 25 MG TAB PO SCH ×2 (07:52→20:54)
[2018-01-24] MEDS: FENOFIBRATE 160 MG TAB PO SCH (07:52)
[2018-01-24] MEDS: MULTIVITAMINS, THERA 1 EACH TAB PO SCH (07:52)
[2018-01-24] MEDS: MAGNESIUM OXIDE 400 MG TAB PO SCH (07:52)
[2018-01-24] MEDS: DULoxetine HCL 60 MG CAPSULE.DR PO SCH (07:53)
[2018-01-24] MEDS: PANTOPRAZOLE 40 MG TABLET PO SCH (07:53)
[2018-01-24] MEDS: metFORMIN 500 MG TAB PO SCH ×2 (07:53→20:49)
[2018-01-24] MEDS: busPIRone HCl 10 MG TAB PO SCH ×2 (07:53→20:49)
[2018-01-24 11:30] LABS: Glucose,Whole Blood 116 mg/dL (75-99)
--- NOTE | 2018-01-24 14:07 | P.HPIM ---
History of Present Illness H&P Date: 01/23/18 Chief Complaint: Altered mental status This is a 62-year-old female history dementia diabetes recent right hip surgery urinary tract infection the past month another medical issues who is brought in by EMS for evaluation for altered mental status and decreased level of consciousness. Patient apparently was last seen acting normal at dinner last evening at her facility. Sometime later she started becoming confused and this morning remained confused this morning with decrease activity per paramedics she would not speak and did not have any mechanical oxidizer strength the left upper extremity. No reports of trauma no fevers chills nausea vomiting sweats constipation diarrhea or other symptoms reported at this time. Patient is admitted for UTI, dehydration and evaluation by neurology for possible TIA versus stroke. 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 Past Psychological History: Anxiety, Depression Smoking Status: Former smoker Past Alcohol Use History: None Reported, Rare Additional Past Alcohol Use History / Comment(s): Pt smoked for one year, 1979- 1980. Past Drug Use History: None Reported - Past Family History Father Family Medical History: Coronary Artery Disease (CAD), Myocardial Infarction (IN ) Additional Family Medical History / Comment(s): Father of a IN at the age of 70yrs. Mother Family Medical History: Liver Disease Additional Family Medical History / Comment(s): Mother from alcoholic liver cirrhosis in her early 70s. Medications and Allergies Home Medications Medication Instructions Recorded Confirmed Type DULoxetine HCL [Cymbalta] 60 mg PO DAILY@0800 10/11/16 01/22/18 History busPIRone HCL [Buspar] 30 mg PO BID 10/11/16 01/22/18 History Carbidopa-Levodopa 25-100 mg 1 tab PO Q12H 02/26/17 01/22/18 History [Sinemet 25-100 mg] Ergocalciferol (Vitamin D2) 50,000 unit PO TU 09/03/17 01/22/18 History [Vitamin D2] Magnesium Oxide 400 mg PO DAILY 09/03/17 01/22/18 History Omeprazole [PriLOSEC] 20 mg PO BID 09/03/17 01/22/18 History Metoprolol Tartrate [Lopressor] 25 mg PO BID tab 09/30/17 01/22/18 Rx Acetaminophen [Tylenol] 650 mg PO Q8H PRN 01/06/18 01/22/18 History Multivitamins, Thera [Multivitamin 1 tab PO DAILY 01/06/18 01/22/18 History (formulary)] OLANZapine [ZyPREXA] 7.5 mg PO HS 01/06/18 01/22/18 History metFORMIN HCL [Glucophage] 1,000 mg PO DAILY 01/06/18 01/22/18 History metFORMIN HCL [Glucophage] 500 mg PO HS 01/06/18 01/22/18 History traMADol HCl [Ultram] 50 mg PO Q6HR PRN #50 tab 01/13/18 01/22/18 Rx Amino Acids/Protein Hydrolys 30 ml PO BID 01/22/18 01/22/18 History [Pro-Stat Supplement] Fenofibrate,Micronized 134 mg PO DAILY 01/22/18 01/22/18 History [Fenofibrate] INSULIN LISPRO (HumaLOG) [humaLOG] See Protocol SQ AC-BID 01/22/18 01/22/18 History Sennosides-Docusate Sodium 2 tab PO HS 01/22/18 01/22/18 History [Senokot-S] Warfarin Sodium [Coumadin] 2 mg PO FRSA 01/22/18 01/22/18 History Warfarin [Coumadin] 1 mg PO SUMOTUWETH 01/22/18 01/22/18 History Allergies Allergy/AdvReac Type Severity Reaction Status Date / Time amoxicillin Allergy Unknown Verified 01/22/18 11:22 azithromycin Allergy Unknown Verified 01/22/18 11:22 codeine Allergy Unknown Verified 01/22/18 11:22 erythromycin base Allergy Unknown Verified 01/22/18 11:22 [Erythromycin Base] Physical Exam Vitals: Vital Signs Temp Pulse Pulse Pulse Pulse Resp BP 01/23/18 15:32 111 H 135 H 111 H 16 01/23/18 14:13 98.3 F 111 H 16 01/23/18 13:00 98.3 F 111 H 16 01/23/18 11:48 98.0 F 108 H 16 01/23/18 09:48 98.5 F 106 H 16 01/23/18 08:00 104 H 01/23/18 07:48 99.0 F 135 H 16 01/23/18 05:55 97.9 F 101 H 16 01/23/18 03:48 97.8 F 104 H 12 01/23/18 01:48 98.3 F 101 H 14 01/23/18 00:18 102 H 01/23/18 00:12 98 01/23/18 00:00 98 01/22/18 23:56 95 01/22/18 23:52 97 01/22/18 23:49 115 H 01/22/18 23:46 126 H 01/22/18 22:44 134 H 14 01/22/18 22:37 131 H 01/22/18 20:52 97.8 F 130 H 16 01/22/18 20:14 97.8 F 125 H 12 01/22/18 16:29 97.6 F 105 H 20 118/69 01/22/18 16:00 105 H 20 121/66 BP Pulse Ox 01/23/18 15:32 01/23/18 14:13 126/52 98 01/23/18 13:00 126/52 98 01/23/18 11:48 126/52 99 01/23/18 09:48 118/56 96 01/23/18 08:00 01/23/18 07:48 121/78 100 01/23/18 05:55 136/61 100 01/23/18 03:48 110/56 100 18 01:48 112/57 100 18 00:18 104/58 01/23/18 00:12 95/52 100 01/23/18 00:00 107/57 01/22/18 23:56 90/51 01/22/18 23:52 94/53 100 01/22/18 23:49 111/61 01/22/18 23:46 97/56 01/22/18 22:44 133/64 100 01/22/18 22:37 115/62 01/22/18 20:52 103/57 100 01/22/18 20:14 102/55 100 01/22/18 16:29 98 01/22/18 16:00 Intake and Output 01/23/18 01/23/18 01/23/18 06:59 14:59 22:59 Intake Total 900 1210 Balance 900 1210 Intake: Intake, IV Titration 900 1200 Amount Doxycycline 100 mg In 100 100 Sodium Chloride 0.9% 100 ml @ 100 mls/hr IVPB Q12H [facility] Rx#:[id number] Sodium Chloride 0.9% 1, 800 1050 000 ml @ 100 mls/hr IV . Q10H [facility] Rx#:[id number] cefTRIAXone 1,000 mg In 50 Sodium Chloride 0.9% 50 ml @ 100 mls/hr IVPB Q12HR [facility] Rx#:[id number] Oral 10 Other: Voiding Method Diaper Diaper Diaper Incontinent Incontinent Incontinent # Voids 2 3 Weight 66.9 kg 66.9 kg Limitations: altered mental status, physical limitation General appearance: alert, lethargic Head exam: Present: atraumatic, normocephalic, normal inspection Eye exam: Present: other (Left thigh deviates slightly laterally compared to the midline right eye pupils appear to be equal and reactive) ENT exam: Present: mucous membranes dry Neck exam: Present: normal inspection, other (No stridor JVD or bruits). Absent : tenderness, meningismus, lymphadenopathy Respiratory exam: Present: normal lung sounds bilaterally. Absent: respiratory distress, wheezes, rales, rhonchi, stridor Cardiovascular Exam: Present: regular rate, normal rhythm, normal heart sounds. Absent: systolic murmur, diastolic murmur, rubs, gallop, clicks GI/Abdominal exam: Present: soft, normal bowel sounds. Absent: distended, tenderness, guarding, rebound, rigid Extremities exam: Present: normal inspection, full ROM, normal capillary refill. Absent: tenderness, pedal edema, joint swelling, calf tenderness Back exam: Present: normal inspection Neurological exam: Present: alert, altered, CN II-XII intact Psychiatric exam: Present: normal affect, normal mood Skin exam: Present: warm, dry, intact, normal color. Absent: rash Results CBC & Chem 7: 01/24/18 06:17 01/24/18 06:17 Labs: Abnormal Lab Results - Last 24 Hours (Table) 01/22/18 01/22/18 01/23/18 Range/Units 17:44 20:17 03:58 RBC (3.80-5.40) m/uL Hgb (11.4-16.0) gm/dL Hct (34.0-46.0) % PT (9.0-12.0) sec INR (<1.2) Chloride (98-107) mmol/L Carbon Dioxide (22-30) mmol/L BUN (7-17) mg/dL Glucose (74-99) mg/dL POC Glucose (mg/dL) 187 H 213 H 142 H (75-99) mg/dL HDL Cholesterol (40-60) mg/dL 01/23/18 01/23/18 01/23/18 Range/Units 06:59 06:59 07:13 RBC (3.80-5.40) m/uL Hgb (11.4-16.0) gm/dL Hct (34.0-46.0) % PT 14.1 H (9.0-12.0) sec INR 1.5 H (<1.2) Chloride 113 H (98-107) mmol/L Carbon Dioxide 20 L (22-30) mmol/L BUN 21 H (7-17) mg/dL Glucose 160 H (74-99) mg/dL POC Glucose (mg/dL) 181 H (75-99) mg/dL HDL Cholesterol 37 L (40-60) mg/dL 01/23/18 01/23/18 Range/Units 11:22 11:25 RBC 2.96 L (3.80-5.40) m/uL Hgb 8.4 L (11.4-16.0) gm/dL Hct 26.6 L (34.0-46.0) % PT (9.0-12.0) sec INR (<1.2) Chloride (98-107) mmol/L Carbon Dioxide (22-30) mmol/L BUN (7-17) mg/dL Glucose (74-99) mg/dL POC Glucose (mg/dL) 156 H (75-99) mg/dL HDL Cholesterol (40-60) mg/dL Microbiology - Last 24 Hours (Table) 01/22/18 12:38 Urine Culture - Preliminary Urine,Catheterized Thrombosis Risk Factor Assmnt - Choose All That Apply Any of the Below Risk Factors Present?: Yes Other Risk Factors: Yes Each Risk Factor Represents 2 Points: Age 61-74 years Other congenital or acquired thrombophilia - If yes, enter type in comment: Yes Each Risk Factor Represents 5 Points: Hip, pelvis, or leg fracture (< 1 month) Thrombosis Risk Factor Assessment Total Risk Factor Score: 7 Thrombosis Risk Factor Assessment Level: High Risk Assessment and Plan Assessment: 1. Altered mental status; metabolic encephalopathy - Multifactorial; dehydration versus worsening dementia versus TIA - Patient is on telemetry and neuro checks, IV fluids and IV antibiotics for UTI - Neurology to see patient and give further recommendations 2. UTI - Continue with Rocephin 1 g IV daily; patient also started on doxycycline 100 mg every 12 hours from ED; we will discontinue doxycycline - Obtain blood cultures and urine culture and further recommendations after culture results are available 3. Renal insufficiency - Patient started with IV fluids 100 mL per hour from ED; we will continue same - Monitor strict [place]'s, daily weights, renal function and electrolytes - Avoid nephrotoxins and hypotension 4. Hypercalcemia possibly secondary to adrenal causes; IV fluids as above 5. Diabetes mellitus type 11 - We will monitor Accu-Cheks with insulin sliding scale - Patient takes metformin thousand milligrams in the morning and 500 mg daily at bedtime - We will hold oral hypoglycemic agents and restart once patient is stable for discharge 6. Hyperlipidemia; continue with lofibra on 60 mg daily 7. Hypertension; stable on metoprolol 25 mg twice a day 8. Dementia/depression; continue home medications Zyprexa 7.5 mg daily at bedtime; BuSpar 30 mg twice a day and Cymbalta 60 mg daily 9. DVT prophylaxis; systemic anticoagulation with Coumadin CODE STATUS; DO NOT RESUSCITATE
[2018-01-24 17:17] LABS: Glucose,Whole Blood 101 mg/dL (75-99)
[2018-01-24] MEDS: WARFARIN 1 MG TAB PO SCH (17:35)
[2018-01-24] MEDS: SENNOSIDES-DOCUSATE SODIUM 1 EACH TAB PO SCH (20:49)
[2018-01-24] MEDS: OLANZapine 2.5 MG TAB PO SCH (20:49)
[2018-01-24 20:53] LABS: Glucose,Whole Blood 84 mg/dL (75-99)
[2018-01-25] MEDS: SODIUM CHLORIDE 0.9% 1,000 ML IV SCH ×2 (00:34→07:51)
[2018-01-25] MEDS: CARBIDOPA-LEVODOPA 25-100 MG 1 EACH TAB PO SCH ×2 (05:26→17:26)
[2018-01-25 07:02] LABS: Glucose,Whole Blood 96 mg/dL (75-99)
[2018-01-25] MEDS: INSULIN ASPART 100 UNIT/ML 1 ML 10 ML VIAL SQ SCH ×4 (07:30→20:57)
[2018-01-25] MEDS: PANTOPRAZOLE 40 MG TABLET PO SCH (07:30)
[2018-01-25] MEDS: metFORMIN 500 MG TAB PO SCH ×2 (07:30→20:57)
[2018-01-25] MEDS: DULoxetine HCL 60 MG CAPSULE.DR PO SCH (07:30)
[2018-01-25] MEDS: busPIRone HCl 10 MG TAB PO SCH ×2 (07:30→20:57)
[2018-01-25] MEDS: MULTIVITAMINS, THERA 1 EACH TAB PO SCH (07:31)
[2018-01-25] MEDS: FENOFIBRATE 160 MG TAB PO SCH (07:31)
[2018-01-25] MEDS: MAGNESIUM OXIDE 400 MG TAB PO SCH (07:31)
[2018-01-25 12:00] LABS: Glucose,Whole Blood 121 mg/dL (75-99)
[2018-01-25] MEDS: METOPROLOL TARTRATE 25 MG TAB PO SCH ×2 (12:10→20:57)
--- NOTE | 2018-01-25 12:59 | P.PN ---
Subjective Progress Note Date: 01/24/18 Principal diagnosis: 1. Altered mental status; metabolic encephalopathy 2. UTI 3. Renal insufficiency 62-year-old female history dementia diabetes recent right hip surgery urinary tract infection the past month another medical issues who is brought in by EMS for evaluation for altered mental status and decreased level of consciousness. Patient apparently was last seen acting normal at dinner last evening at her facility. Sometime later she started becoming confused and this morning remained confused this morning with decrease activity per paramedics she would not speak and did not have any occupational rehabilitation aide strength the left upper extremity. No reports of trauma no fevers chills nausea vomiting sweats constipation diarrhea or other symptoms reported at this time. 01/24/2018 Patient is more awake and alert and conversant today; we will continue with IV fluids and IV antibiotics Neuro has seen patient and not recommending any further neurological workup due to negative CAT scan and no obvious lateralizing weakness; no recommending a stat CT head with any changes in neurological status Patient's vitals remained stable with a temperature of 98.3 and blood pressure of 123/64 Labs reviewed show a normal white blood count of 7.3; hemoglobin is improved to 9.2 compared to 8.4 yesterday; BUN has trended down to normal with IV fluid hydration We will continue with IV fluid and IV antibiotics until final urine culture and sensitivity is available Objective - Vital Signs Vital signs: Vital Signs Temp 98.3 F 01/24/18 12:38 Pulse 83 01/24/18 12:38 Resp 16 01/24/18 12:38 BP 123/64 01/24/18 12:38 Pulse Ox 98 01/24/18 12:38 Intake & Output 01/23/18 01/24/18 01/24/18 18:59 06:59 18:59 Intake Total 1210 1350 Balance 1210 1350 Weight 66.9 kg 66.9 kg 66.9 kg Intake: Intake, IV Titration 1200 1350 Amount Doxycycline 100 mg In 100 100 Sodium Chloride 0.9% 100 ml @ 100 mls/hr IVPB Q12H [facility] Rx#:[id number] Sodium Chloride 0.9% 1, 1050 1200 000 ml @ 100 mls/hr IV . Q10H [facility] Rx#:[id number] cefTRIAXone 1,000 mg In 50 50 Sodium Chloride 0.9% 50 ml @ 100 mls/hr IVPB Q12HR [facility] Rx#:[id number] Oral 10 0 Other: Voiding Method Diaper Diaper Diaper Incontinent Incontinent Incontinent # Voids 3 1 1 - Exam Limitations: altered mental status, physical limitation General appearance: alert, lethargic Head exam: Present: atraumatic, normocephalic, normal inspection Eye exam: Present: other (Left thigh deviates slightly laterally compared to the midline right eye pupils appear to be equal and reactive) ENT exam: Present: mucous membranes dry Neck exam: Present: normal inspection, other (No stridor JVD or bruits). Absent : tenderness, meningismus, lymphadenopathy Respiratory exam: Present: normal lung sounds bilaterally. Absent: respiratory distress, wheezes, rales, rhonchi, stridor Cardiovascular Exam: Present: regular rate, normal rhythm, normal heart sounds. Absent: systolic murmur, diastolic murmur, rubs, gallop, clicks GI/Abdominal exam: Present: soft, normal bowel sounds. Absent: distended, tenderness, guarding, rebound, rigid Extremities exam: Present: normal inspection, full ROM, normal capillary refill. Absent: tenderness, pedal edema, joint swelling, calf tenderness Back exam: Present: normal inspection Neurological exam: Present: alert, altered, CN II-XII intact Psychiatric exam: Present: normal affect, normal mood Skin exam: Present: warm, dry, intact, normal color. Absent: rash - Labs CBC & Chem 7: 01/24/18 06:17 01/24/18 06:17 Labs: Abnormal Lab Results - Last 24 Hours (Table) 01/23/18 01/23/18 01/24/18 Range/Units 17:24 21:54 06:17 RBC 3.25 L (3.80-5.40) m/uL Hgb 9.2 L (11.4-16.0) gm/dL Hct 29.8 L (34.0-46.0) % MCHC 30.8 L (31.0-37.0) g/dL Chloride (98-107) mmol/L Carbon Dioxide (22-30) mmol/L Glucose (74-99) mg/dL POC Glucose (mg/dL) 141 H 114 H (75-99) mg/dL 01/24/18 01/24/18 01/24/18 Range/Units 06:17 07:35 11:27 RBC (3.80-5.40) m/uL Hgb (11.4-16.0) gm/dL Hct (34.0-46.0) % MCHC (31.0-37.0) g/dL Chloride 112 H (98-107) mmol/L Carbon Dioxide 20 L (22-30) mmol/L Glucose 105 H (74-99) mg/dL POC Glucose (mg/dL) 120 H 116 H (75-99) mg/dL Microbiology - Last 24 Hours (Table) 01/22/18 12:38 Urine Culture - Final Urine,Catheterized 01/22/18 15:50 Blood Culture - Preliminary Blood No Growth after 24 hours Assessment and Plan Assessment: 1. Altered mental status; metabolic encephalopathy - Multifactorial; dehydration versus worsening dementia versus TIA - Patient is on telemetry and neuro checks, IV fluids and IV antibiotics for UTI - Neurology to see patient and give further recommendations 2. UTI - Continue with Rocephin 1 g IV daily; patient also started on doxycycline 100 mg every 12 hours from ED; we will discontinue doxycycline - Obtain blood cultures and urine culture and further recommendations after culture results are available 3. Renal insufficiency - Patient started with IV fluids 100 mL per hour from ED; we will continue same - Monitor strict GE[place]IANA's, daily weights, renal function and electrolytes - Avoid nephrotoxins and hypotension 4. Hypercalcemia possibly secondary to adrenal causes; IV fluids as above 5. Diabetes mellitus type 11 - We will monitor Accu-Cheks with insulin sliding scale - Patient takes metformin thousand milligrams in the morning and 500 mg daily at bedtime - We will hold oral hypoglycemic agents and restart once patient is stable for discharge 6. Hyperlipidemia; continue with lofibra on 60 mg daily 7. Hypertension; stable on metoprolol 25 mg twice a day 8. Dementia/depression; continue home medications Zyprexa 7.5 mg daily at bedtime; BuSpar 30 mg twice a day and Cymbalta 60 mg daily 9. DVT prophylaxis; systemic anticoagulation with Coumadin CODE STATUS; DO NOT RESUSCITATE Time with Patient: Greater than 30
[2018-01-25] MEDS ORDERED: RX INFO: IV CONTRAST WAS GIVEN 1 EACH MISC MISCELLANE PRN (14:27)
--- NOTE | 2018-01-25 14:56 | CDI ---
Last Revision, February 2017 Documentation Clarification Form Date: 01/25/2018 2:45:21 PM From: Sherri ReillyMelendezARMEN, CCDS Admit Date: 01/22/2018 2:48:00 PM Patient Name: Nirmala Paul Visit Number: [id number] Discharge Date: ATTENTION: The Clinical Documentation Specialists (CDI) and [facility] Coding Staff appreciate your assistance in clarifying documentation. Please respond to the clarification below the line at the bottom and electronically sign. The CDI & [facility] Coding staff will review the response and follow-up if needed. Please note: Queries are made part of the Legal Health Record. If you have any questions, please contact the author of this message via ITS. Dagoberto Rhodes MD: Renal insufficieny is documented in the attending H/P & progress note 01/24. History/Risk Factors: IDDM II, Hypertension, previous TIA, Dementia. Clinical Indicators: Admitted with UTI & metabolic encephalopathy. BUN 34 - 21 - 12 Creatinine 0.97 - 0.67 - 0.60 GFR 63 - >90 - >90 Treatment: IV fluids, IV fluid bolus, IV antibiotics: Rocephin, Doxycycline Consults: Neurology In order to capture the severity of condition, please clarify if the condition signifies: Acute renal failure, Please specify etiology (if known): o Cortical Necrosis o Medullary Necrosis o Tubular Necrosis Acute on chronic renal failure If chronic: o CKD Stage 1 GFR >90 o CKD Stage 2 GFR 60-89 Other, please specify Unable to determine MTDD
[2018-01-25 15:26] LABS: Basophils % (A) 0 %; Eosinophils % (A) 0 %; HCT 30.2 % (34.0-46.0); HGB 9.4 gm/dL (11.4-16.0); Hypochromasia Marked; Lymphocytes # (A) 1.1 k/uL (1.0-4.8); Lymphocytes % (A) 15 %; MCH 27.3 pg (25.0-35.0); MCHC 31.1 g/dL (31.0-37.0); MCV 87.9 fL (80.0-100.0); Mean Platelet Volume 6.4; Monocytes # (A) 0.3 k/uL (0-1.0); Monocytes % (A) 5 %; Neutrophils # (A) 5.6 k/uL (1.3-7.7); Neutrophils % (A) 79 %; Platelet Count 361 k/uL (150-450); Poikilocytosis Slight; RBC 3.44 m/uL (3.80-5.40); RDW 14.6 % (11.5-15.5); WBC 7.1 k/uL (3.8-10.6)
[2018-01-25 15:36] LABS: Anion Gap 14 mmol/L; Blood Urea Nitrogen 9 mg/dL (7-17); Calcium 9.6 mg/dL (8.4-10.2); Carbon Dioxide 15 mmol/L (22-30); Chloride 110 mmol/L (98-107); Glucose 115 mg/dL (74-99); Sodium 139 mmol/L (137-145)
[2018-01-25 17:06] LABS: Glucose,Whole Blood 116 mg/dL (75-99)
[2018-01-25] MEDS: WARFARIN 1 MG TAB PO SCH (17:26)
--- NOTE | 2018-01-25 17:37 | P.PN ---
Subjective Progress Note Date: 01/25/18 Principal diagnosis: 1. Altered mental status; metabolic encephalopathy 2. UTI 3. Renal insufficiency 62-year-old female history dementia diabetes recent right hip surgery urinary tract infection the past month another medical issues who is brought in by EMS for evaluation for altered mental status and decreased level of consciousness. Patient apparently was last seen acting normal at dinner last evening at her facility. Sometime later she started becoming confused and this morning remained confused this morning with decrease activity per paramedics she would not speak and did not have any clipping marker strength the left upper extremity. No reports of trauma no fevers chills nausea vomiting sweats constipation diarrhea or other symptoms reported at this time. 01/24/2018 Patient is more awake and alert and conversant today; we will continue with IV fluids and IV antibiotics Neuro has seen patient and not recommending any further neurological workup due to negative CAT scan and no obvious lateralizing weakness; no recommending a stat CT head with any changes in neurological status Patient's vitals remained stable with a temperature of 98.3 and blood pressure of 123/64 Labs reviewed show a normal white blood count of 7.3; hemoglobin is improved to 9.2 compared to 8.4 yesterday; BUN has trended down to normal with IV fluid hydration We will continue with IV fluid and IV antibiotics until final urine culture and sensitivity is available 01/25/2018 Patient is seen for follow-up on mental status change; patient is very lethargic and sleepy today; does open eyes on verbal stimulation but falls right back to sleep Vital signs are reviewed and stable at a temperature of 96 8.7, pulse rate 100, blood pressure 137/65 Labs are reviewed and CBC is insignificant except for a hemoglobin of 9.4 which is stable and markedly improved and resolved acute renal dysfunction Patient has been evaluated by neurology and has been recommended to repeat CT of the head without any changes in neurological status; at this point we will go ahead and proceed with a stat CT of the head without contrast and recommend MRI with and without contrast if CT head is negative for any acute bleed Objective - Vital Signs Vital signs: Vital Signs Temp 97.6 F 01/25/18 05:00 Pulse 96 01/25/18 05:00 Resp 18 01/25/18 05:00 BP 129/66 01/25/18 05:00 Pulse Ox 97 01/25/18 05:00 Intake & Output 01/24/18 01/25/18 01/25/18 18:59 06:59 18:59 Intake Total 1350 550 Balance 1350 550 Weight 66.9 kg Intake: Intake, IV Titration 1350 550 Amount Doxycycline 100 mg In 100 Sodium Chloride 0.9% 100 ml @ 100 mls/hr IVPB Q12H [facility] Rx#:[id number] Sodium Chloride 0.9% 1, 1200 500 000 ml @ 100 mls/hr IV . Q10H [facility] Rx#:[id number] cefTRIAXone 1,000 mg In 50 50 Sodium Chloride 0.9% 50 ml @ 100 mls/hr IVPB Q12HR [facility] Rx#:[id number] Oral 0 Other: Voiding Method Diaper Diaper Diaper Incontinent Incontinent Incontinent # Voids 1 4 - Exam Limitations: altered mental status, physical limitation General appearance: alert, lethargic Head exam: Present: atraumatic, normocephalic, normal inspection Eye exam: Present: other (Left thigh deviates slightly laterally compared to the midline right eye pupils appear to be equal and reactive) ENT exam: Present: mucous membranes dry Neck exam: Present: normal inspection, other (No stridor JVD or bruits). Absent : tenderness, meningismus, lymphadenopathy Respiratory exam: Present: normal lung sounds bilaterally. Absent: respiratory distress, wheezes, rales, rhonchi, stridor Cardiovascular Exam: Present: regular rate, normal rhythm, normal heart sounds. Absent: systolic murmur, diastolic murmur, rubs, gallop, clicks GI/Abdominal exam: Present: soft, normal bowel sounds. Absent: distended, tenderness, guarding, rebound, rigid Extremities exam: Present: normal inspection, full ROM, normal capillary refill. Absent: tenderness, pedal edema, joint swelling, calf tenderness Back exam: Present: normal inspection Neurological exam: Present: alert, altered, CN II-XII intact Psychiatric exam: Present: normal affect, normal mood Skin exam: Present: warm, dry, intact, normal color. Absent: rash - Labs CBC & Chem 7: 01/25/18 14:55 01/25/18 14:55 Labs: Abnormal Lab Results - Last 24 Hours (Table) 01/24/18 01/25/18 Range/Units 17:07 11:59 POC Glucose (mg/dL) 101 H 121 H (75-99) mg/dL Microbiology - Last 24 Hours (Table) 01/22/18 15:50 Blood Culture - Preliminary Blood No Growth after 48 hours Assessment and Plan Assessment: 1. Altered mental status; metabolic encephalopathy - Multifactorial; dehydration versus worsening dementia versus TIA - Patient is on telemetry and neuro checks, IV fluids and IV antibiotics for UTI - Neurology to see patient and give further recommendations 2. UTI - Continue with Rocephin 1 g IV daily; patient also started on doxycycline 100 mg every 12 hours from ED; we will discontinue doxycycline - Obtain blood cultures and urine culture and further recommendations after culture results are available 3. Acute Renal insufficiency - Patient started with IV fluids 100 mL per hour from ED; we will continue same - Monitor strict [place]'s, daily weights, renal function and electrolytes - Avoid nephrotoxins and hypotension 4. Hypercalcemia possibly secondary to adrenal causes; IV fluids as above 5. Diabetes mellitus type 11 - We will monitor Accu-Cheks with insulin sliding scale - Patient takes metformin thousand milligrams in the morning and 500 mg daily at bedtime - We will hold oral hypoglycemic agents and restart once patient is stable for discharge 6. Hyperlipidemia; continue with lofibra on 60 mg daily 7. Hypertension; stable on metoprolol 25 mg twice a day 8. Dementia/depression; continue home medications Zyprexa 7.5 mg daily at bedtime; BuSpar 30 mg twice a day and Cymbalta 60 mg daily 9. DVT prophylaxis; systemic anticoagulation with Coumadin CODE STATUS; DO NOT RESUSCITATE Time with Patient: Greater than 30
--- NOTE | 2018-01-25 18:10 | CT ---
EXAMINATION TYPE: CT brain w con DATE OF EXAM: 01/25/2018 COMPARISON: 01/22/2018 HISTORY: ams, recent UTI CT DLP: 995.5 mGycm Automated exposure control for dose reduction was used. CONTRAST: CT scan of the head is performed with IV Contrast, patient injected with 100 mL of Isovue 300. FINDINGS: There is hypodensity in the periventricular white matter. There is cerebral cortical atrophy. There i s no mass effect nor midline shift. There is no sign of intracranial hemorrhage. The calvarium is int act. There is no pathologic enhancement. There is normal contrast opacification of the venous sinuses . IMPRESSION: Cerebral atrophy and chronic small vessel ischemia. No acute intracranial abnormality. No change.
[2018-01-25] MEDS: OLANZapine 2.5 MG TAB PO SCH (20:57)
[2018-01-25] MEDS: SENNOSIDES-DOCUSATE SODIUM 1 EACH TAB PO SCH (20:58)
[2018-01-25 21:02] LABS: Glucose,Whole Blood 94 mg/dL (75-99)
[2018-01-26] MEDS: SODIUM CHLORIDE 0.9% 1,000 ML IV SCH ×3 (05:38→18:00)
[2018-01-26] MEDS: CARBIDOPA-LEVODOPA 25-100 MG 1 EACH TAB PO SCH ×2 (05:38→18:00)
[2018-01-26 07:00] LABS: Glucose,Whole Blood 113 mg/dL (75-99)
[2018-01-26] MEDS: INSULIN ASPART 100 UNIT/ML 1 ML 10 ML VIAL SQ SCH ×4 (07:31→22:06)
[2018-01-26] MEDS: metFORMIN 500 MG TAB PO SCH ×2 (09:03→22:01)
[2018-01-26] MEDS: METOPROLOL TARTRATE 25 MG TAB PO SCH ×2 (09:14→22:05)
[2018-01-26 09:19] LABS: Basophils % (A) 0 %; Eosinophils % (A) 1 %; HCT 29.3 % (34.0-46.0); HGB 9.3 gm/dL (11.4-16.0); Hypochromasia Marked; Lymphocytes # (A) 1.4 k/uL (1.0-4.8); Lymphocytes % (A) 23 %; MCHC 31.8 g/dL (31.0-37.0); MCV 87.9 fL (80.0-100.0); Mean Platelet Volume 6.6; Monocytes # (A) 0.3 k/uL (0-1.0); Monocytes % (A) 6 %; Neutrophils # (A) 4.3 k/uL (1.3-7.7); Neutrophils % (A) 69 %; Platelet Count 339 k/uL (150-450); Poikilocytosis Slight; RBC 3.34 m/uL (3.80-5.40); WBC 6.2 k/uL (3.8-10.6)
[2018-01-26] MEDS: busPIRone HCl 10 MG TAB PO SCH ×2 (09:21→22:05)
[2018-01-26] MEDS: DULoxetine HCL 60 MG CAPSULE.DR PO SCH (09:23)
[2018-01-26] MEDS: PANTOPRAZOLE 40 MG TABLET PO SCH (09:23)
[2018-01-26] MEDS: MULTIVITAMINS, THERA 1 EACH TAB PO SCH (09:27)
[2018-01-26] MEDS: MAGNESIUM OXIDE 400 MG TAB PO SCH (09:27)
[2018-01-26] MEDS: FENOFIBRATE 160 MG TAB PO SCH (09:27)
[2018-01-26 09:30] LABS: Anion Gap 15 mmol/L; Blood Urea Nitrogen 7 mg/dL (7-17); Calcium 9.7 mg/dL (8.4-10.2); Carbon Dioxide 13 mmol/L (22-30); Chloride 112 mmol/L (98-107); Glucose 137 mg/dL (74-99); Potassium 3.8 mmol/L (3.5-5.1); Sodium 140 mmol/L (137-145)
[2018-01-26] MEDS: traMADol 50 MG TAB PO PRN ×2 (11:34→22:10)
[2018-01-26 11:42] LABS: Glucose,Whole Blood 174 mg/dL (75-99)
[2018-01-26] MEDS ORDERED: ERGOCALCIFEROL 50,000 UNIT CAP PO SCH (12:00)
[2018-01-26 13:17] VITALS: RESP 16
[2018-01-26 17:21] LABS: Glucose,Whole Blood 189 mg/dL (75-99)
[2018-01-26] MEDS: WARFARIN 1 MG TAB PO SCH (18:00)
[2018-01-26 19:50] LABS: Glucose,Whole Blood 159 mg/dL (75-99)
[2018-01-26 21:43] LABS: Hemoglobin A1C 6.4 % (4.0-6.0)
[2018-01-26] MEDS: OLANZapine 2.5 MG TAB PO SCH (22:05)
[2018-01-26] MEDS: SENNOSIDES-DOCUSATE SODIUM 1 EACH TAB PO SCH (22:06)
[2018-01-27] MEDS: CARBIDOPA-LEVODOPA 25-100 MG 1 EACH TAB PO SCH ×2 (05:32→18:08)
[2018-01-27 06:55] LABS: Glucose,Whole Blood 146 mg/dL (75-99)
[2018-01-27] MEDS: INSULIN ASPART 100 UNIT/ML 1 ML 10 ML VIAL SQ SCH ×3 (08:59→18:09)
[2018-01-27] MEDS: SODIUM CHLORIDE 0.9% 1,000 ML IV SCH ×2 (09:00→12:18)
[2018-01-27] MEDS: FENOFIBRATE 160 MG TAB PO SCH (09:00)
[2018-01-27] MEDS: PANTOPRAZOLE 40 MG TABLET PO SCH (09:01)
[2018-01-27] MEDS: busPIRone HCl 10 MG TAB PO SCH (09:01)
[2018-01-27] MEDS: metFORMIN 500 MG TAB PO SCH (09:01)
[2018-01-27] MEDS: DULoxetine HCL 60 MG CAPSULE.DR PO SCH (09:01)
[2018-01-27] MEDS: MAGNESIUM OXIDE 400 MG TAB PO SCH (09:02)
[2018-01-27] MEDS: MULTIVITAMINS, THERA 1 EACH TAB PO SCH (09:02)
[2018-01-27] MEDS: METOPROLOL TARTRATE 25 MG TAB PO SCH (09:02)
[2018-01-27 11:04] LABS: Glucose,Whole Blood 185 mg/dL (75-99)
[2018-01-27 12:47] VITALS: BP 116/60; PULSE 81; TEMP 97.7
--- NOTE | 2018-01-27 15:49 | P.DS ---
Providers Date of admission: 01/22/18 14:48 Expected date of discharge: 01/27/18 Attending physician: Washington De León Consults: 01/22/18 14:49 Consult Physician Routine Consulting Provider: Yaya Magaña Consult Reason/Comments: Altered mental status Do you want consulting provider notified?: Yes Primary care physician: [facility] Course: Final Diagnoses: Altered mental status, metabolic encephalopathy, multifactorial, being dehydration, worsening dementia Acute UTI Acute renal failure,resolved Hypercalcemia secondary to adrenal causes, further workup outpatient Diabetes mellitus type 2 Hypertension Hospital course: This is a 62-year-old female history dementia diabetes recent right hip surgery urinary tract infection the past month another medical issues who is brought in by EMS for evaluation for altered mental status and decreased level of consciousness. Patient apparently was last seen acting normal at dinner last evening at her facility. Sometime later she started becoming confused and this morning remained confused this morning with decrease activity per paramedics she would not speak and did not have any order caller strength the left upper extremity. No reports of trauma no fevers chills nausea vomiting sweats constipation diarrhea or other symptoms reported at this time. Maintained on IV fluids, IV antibiotics. Evaluated by neurology with neurology workup completed. Neuro not recommending any further neurological workup due to negative CAT scan and no obvious lateralizing weakness. Acute renal failure resolved. Significant clinical improvement. Cleared by all consults for discharge. Patient is being discharged to [facility] in a stable condition with guarded prognosis. Exam Limitations: altered mental status, physical limitation General : Alert, no acute distress Respiratory exam: Present: normal lung sounds bilaterally. Absent: respiratory distress, wheezes, rales, rhonchi, stridor Cardiovascular Exam: Present: regular rate, normal rhythm, normal heart sounds. Absent: systolic murmur, diastolic murmur, rubs, gallop, clicks GI/Abdominal exam: Present: soft, normal bowel sounds. Absent: distended, tenderness, guarding, rebound, rigid Extremities exam: Present: normal inspection, full ROM, normal capillary refill. Absent: tenderness, pedal edema, joint swelling, calf tenderness Neurological exam: Present: alert, altered, no gross focal deficits The impression and plan of care has been dictated as directed. : I performed a history and examination of this patient, discussed the same with the dictator. I agree with the dictator's note ,documented as a scribe. Any additional findings or plans will be noted. Time taken: 35 minutes Patient Condition at Discharge: Stable Plan - Discharge Summary Discharge Rx Participant: Yes New Discharge Prescriptions: No Action DULoxetine HCL [Cymbalta] 60 mg PO DAILY@0800 busPIRone HCL [Buspar] 30 mg PO BID Carbidopa-Levodopa 25-100 mg [Sinemet 25-100 mg] 1 tab PO Q12H Ergocalciferol (Vitamin D2) [Vitamin D2] 50,000 unit PO TU Magnesium Oxide 400 mg PO DAILY Omeprazole [PriLOSEC] 20 mg PO BID Metoprolol Tartrate [Lopressor] 25 mg PO BID tab Acetaminophen [Tylenol] 650 mg PO Q8H PRN PRN Reason: Pain OLANZapine [ZyPREXA] 7.5 mg PO HS metFORMIN HCL [Glucophage] 1,000 mg PO DAILY Multivitamins, Thera [Multivitamin (formulary)] 1 tab PO DAILY metFORMIN HCL [Glucophage] 500 mg PO HS traMADol HCl [Ultram] 50 mg PO Q6HR PRN #50 tab PRN Reason: Pain Amino Acids/Protein Hydrolys [Pro-Stat Supplement] 30 ml PO BID INSULIN LISPRO (HumaLOG) [humaLOG] See Protocol SQ AC-BID Warfarin Sodium [Coumadin] 2 mg PO FRSA Warfarin [Coumadin] 1 mg PO SUMOTUWETH Sennosides-Docusate Sodium [Senokot-S] 2 tab PO HS Fenofibrate,Micronized [Fenofibrate] 134 mg PO DAILY Discharge Medication List DULoxetine HCL [Cymbalta] 60 mg PO DAILY@0800 10/11/16 [History] busPIRone HCL [Buspar] 30 mg PO BID 10/11/16 [History] Carbidopa-Levodopa 25-100 mg [Sinemet 25-100 mg] 1 tab PO Q12H 02/26/17 [History ] Ergocalciferol (Vitamin D2) [Vitamin D2] 50,000 unit PO TU 09/03/17 [History] Magnesium Oxide 400 mg PO DAILY 09/03/17 [History] Omeprazole [PriLOSEC] 20 mg PO BID 09/03/17 [History] Metoprolol Tartrate [Lopressor] 25 mg PO BID tab 09/30/17 [Rx] Acetaminophen [Tylenol] 650 mg PO Q8H PRN 01/06/18 [History] Multivitamins, Thera [Multivitamin (formulary)] 1 tab PO DAILY 01/06/18 [History ] OLANZapine [ZyPREXA] 7.5 mg PO HS 01/06/18 [History] metFORMIN HCL [Glucophage] 1,000 mg PO DAILY 01/06/18 [History] metFORMIN HCL [Glucophage] 500 mg PO HS 01/06/18 [History] traMADol HCl [Ultram] 50 mg PO Q6HR PRN #50 tab 01/13/18 [Rx] Amino Acids/Protein Hydrolys [Pro-Stat Supplement] 30 ml PO BID 01/22/18 [ History] Fenofibrate,Micronized [Fenofibrate] 134 mg PO DAILY 01/22/18 [History] INSULIN LISPRO (HumaLOG) [humaLOG] See Protocol SQ AC-BID 01/22/18 [History] Sennosides-Docusate Sodium [Senokot-S] 2 tab PO HS 01/22/18 [History] Warfarin Sodium [Coumadin] 2 mg PO FRSA 01/22/18 [History] Warfarin [Coumadin] 1 mg PO SUMOTUWETH 01/22/18 [History] Follow up Appointment(s)/Referral(s): Mark Mendoza DO [Primary Care Provider] - 1-2 days
[2018-01-27 16:36] LABS: HCT 30.1 % (34.0-46.0); HGB 9.2 gm/dL (11.4-16.0); Hypochromasia Marked; MCH 27.5 pg (25.0-35.0); MCHC 30.7 g/dL (31.0-37.0); MCV 89.8 fL (80.0-100.0); Mean Platelet Volume 6.1; Platelet Count 336 k/uL (150-450); Poikilocytosis Slight; RBC 3.35 m/uL (3.80-5.40); RDW 15.3 % (11.5-15.5); WBC 6.5 k/uL (3.8-10.6)
[2018-01-27 16:37] LABS: INR 1.4 (<1.2); Prothrombin Time 13.5 sec (9.0-12.0)
[2018-01-27 16:50] LABS: Anion Gap 6 mmol/L; Blood Urea Nitrogen 7 mg/dL (7-17); Carbon Dioxide 18 mmol/L (22-30); Chloride 116 mmol/L (98-107); Glucose 152 mg/dL (74-99); Potassium 3.5 mmol/L (3.5-5.1); Sodium 140 mmol/L (137-145)
[2018-01-27 16:51] LABS: Calcium 9.9 mg/dL (8.4-10.2)
[2018-01-27 17:03] LABS: Glucose,Whole Blood 148 mg/dL (75-99)
[2018-01-27] MEDS: WARFARIN 1 MG TAB PO SCH (18:08)
--- NOTE | 2018-02-01 19:12 | P.PN ---
Subjective Progress Note Date: 01/26/18 Progress note being dictated for Dr. De León. Interval history: This is [id number] female history dementia diabetes recent right hip surgery urinary tract infection the past month another medical issues who is brought in by EMS for evaluation for altered mental status and decreased level of consciousness. Patient apparently was last seen acting normal at dinner last evening at her facility. Sometime later she started becoming confused and this morning remained confused this morning with decrease activity per paramedics she would not speak and did not have any transportation associate strength the left upper extremity. No reports of trauma no fevers chills nausea vomiting sweats constipation diarrhea or other symptoms reported at this time. 01/24/2018 Patient is more awake and alert and conversant today; we will continue with IV fluids and IV antibiotics Neuro has seen patient and not recommending any further neurological workup due to negative CAT scan and no obvious lateralizing weakness; no recommending a stat CT head with any changes in neurological status Patient's vitals remained stable with a temperature of 98.3 and blood pressure of 123/64 Labs reviewed show a normal white blood count of 7.3; hemoglobin is improved to 9.2 compared to 8.4 yesterday; BUN has trended down to normal with IV fluid hydration We will continue with IV fluid and IV antibiotics until final urine culture and sensitivity is available 01/25/2018 Patient is seen for follow-up on mental status change; patient is very lethargic and sleepy today; does open eyes on verbal stimulation but falls right back to sleep Vital signs are reviewed and stable at a temperature of 96 8.7, pulse rate 100, blood pressure 137/65 Labs are reviewed and CBC is insignificant except for a hemoglobin of 9.4 which is stable and markedly improved and resolved acute renal dysfunction Patient has been evaluated by neurology and has been recommended to repeat CT of the head without any changes in neurological status; at this point we will go ahead and proceed with a stat CT of the head without contrast and recommend MRI with and without contrast if CT head is negative for any acute bleed 01/26/2018 sitting up in bed, more alert today. Afebrile, normal WBC. Urine and blood cultures negative. Hemoglobin stable at 9.3. Blood sugars better controlled. Denies chest pain, palpitations, increased shortness of breath. Denies any O2 sats in the high 90s on room air. Objective - Vital Signs Vital signs: Vital Signs Temp 97.9 F 01/26/18 12:49 Pulse 93 01/26/18 12:49 Resp 16 01/26/18 12:49 BP 157/73 01/26/18 12:49 Pulse Ox 98 01/26/18 12:49 Intake & Output 01/26/18 01/26/18 01/27/18 06:59 18:59 06:59 Intake Total 900 Balance 900 Weight 66.9 kg Intake: Intake, IV Titration 900 Amount Sodium Chloride 0.9% 1, 800 000 ml @ 100 mls/hr IV . Q10H [facility] Rx#:[id number] cefTRIAXone 1,000 mg In 100 Sodium Chloride 0.9% 50 ml @ 100 mls/hr IVPB Q12HR [facility] Rx#:[id number] Other: Voiding Method Diaper Diaper Incontinent Incontinent # Voids 4 2 - Exam General appearance: Sitting up in bed, tired appearing, more alert Head exam: Present: atraumatic, normocephalic, normal inspection Eye exam: Present: other (Left thigh deviates slightly laterally compared to the midline right eye pupils appear to be equal and reactive) ENT exam: Present: mucous membranes dry Neck exam: Present: normal inspection, other (No stridor JVD or bruits). Absent : tenderness, meningismus, lymphadenopathy Respiratory exam: Present: normal lung sounds bilaterally. Absent: respiratory distress, wheezes, rales, rhonchi, stridor Cardiovascular Exam: Present: regular rate, normal rhythm, normal heart sounds. Absent: systolic murmur, diastolic murmur, rubs, gallop, clicks GI/Abdominal exam: Present: soft, normal bowel sounds. Absent: distended, tenderness, guarding, rebound, rigid Extremities exam: Present: normal inspection, full ROM, normal capillary refill. Absent: tenderness, pedal edema, joint swelling, calf tenderness Back exam: Present: normal inspection Neurological exam: Present: alert, altered, CN II-XII intact Psychiatric exam: Present: normal affect, normal mood Skin exam: Present: warm, dry, intact, normal color. Absent: rash Microbiology 01/22/18 15:50 Blood Blood Culture - Final No Growth after 144 hours 01/22/18 12:38 Urine,Catheterized Urine Culture - Final - Labs CBC & Chem 7: 01/27/18 16:10 01/27/18 16:10 Labs: Abnormal Lab Results - Last 24 Hours (Table) 01/26/18 01/26/18 01/26/18 Range/Units 06:59 08:42 08:42 RBC 3.34 L (3.80-5.40) m/uL Hgb 9.3 L (11.4-16.0) gm/dL Hct 29.3 L (34.0-46.0) % Chloride 112 H (98-107) mmol/L Carbon Dioxide 13 L (22-30) mmol/L Glucose 137 H (74-99) mg/dL POC Glucose (mg/dL) 113 H (75-99) mg/dL 01/26/18 01/26/18 01/26/18 Range/Units 11:40 17:19 19:49 RBC (3.80-5.40) m/uL Hgb (11.4-16.0) gm/dL Hct (34.0-46.0) % Chloride (98-107) mmol/L Carbon Dioxide (22-30) mmol/L Glucose (74-99) mg/dL POC Glucose (mg/dL) 174 H 189 H 159 H (75-99) mg/dL Microbiology - Last 24 Hours (Table) 01/22/18 15:50 Blood Culture - Preliminary Blood No Growth after 96 hours Assessment and Plan Assessment: Final Diagnoses: Altered mental status, metabolic encephalopathy, multifactorial, being dehydration, worsening dementia Acute UTI Acute renal failure,resolved 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 Maintain antibiotics. Hold all sedatives-discussed with RN. Discharge planning in progress for tomorrow to subacute rehab. PT/INR ordered. Close monitoring of electrolytes with repeat labs ordered for am. The impression and plan of care has been dictated as directed. : I performed a history and examination of this patient, discussed the same with the dictator. I agree with the dictator's note ,documented as a scribe. Any additional findings or plans will be noted.
== END 2018-01-27 19:45 | DRG 689 ==
LOC: EC 09:42 → 3NMEDONC 14:48
PROVIDERS: ADMIT Internal Medicine; ATTEND Internal Medicine
DX: N39.0 Urinary tract infection, site not specified (principal); G93.41 Metabolic encephalopathy; N17.9 Acute kidney failure, unspecified; E86.0 Dehydration; F03.90 Unspecified dementia, unspecified severity, without behavioral disturbance, psychotic disturbance, mood disturbance, and anxiety; E11.9 Type 2 diabetes mellitus without complications; G25.81 Restless legs syndrome; E78.5 Hyperlipidemia, unspecified; F32.9 Major depressive disorder, single episode, unspecified; F41.9 Anxiety disorder, unspecified; G20 Parkinson's disease; I10 Essential (primary) hypertension; I48.2 Chronic atrial fibrillation; K21.9 Gastro-esophageal reflux disease without esophagitis; M54.2 Cervicalgia; D64.9 Anemia, unspecified; R51 Headache; G56.03 Carpal tunnel syndrome, bilateral upper limbs; M19.90 Unspecified osteoarthritis, unspecified site; E83.52 Hypercalcemia; J45.909 Unspecified asthma, uncomplicated; Z66 Do not resuscitate; E27.9 Disorder of adrenal gland, unspecified; Z79.01 Long term (current) use of anticoagulants; Z79.4 Long term (current) use of insulin; Z79.899 Other long term (current) drug therapy; Z88.1 Allergy status to other antibiotic agents; Z88.5 Allergy status to narcotic agent; Z88.0 Allergy status to penicillin; Z89.422 Acquired absence of other left toe(s); Z90.49 Acquired absence of other specified parts of digestive tract; Z87.891 Personal history of nicotine dependence; Z82.49 Family history of ischemic heart disease and other diseases of the circulatory system; Z87.01 Personal history of pneumonia (recurrent); Z86.73 Personal history of transient ischemic attack (TIA), and cerebral infarction without residual deficits
CPT/HCPCS: 36415; 51702; 70450; 70460; 71045; 71046; 80048; 80053; 80061; 80306; 81001; 82140; 82272; 82550; 82553; 83036; 83605; 84484; 85025; 85027; 85610; 85730; 87040; 87086; 93005; 96361; 96365; 99285